=== PATIENT | male | born 1960 | race Caucasian/White ===

== ENCOUNTER 2016-10-13 11:30 | Inpatient (IN) | payer OTHER ==
[2016-10-13 11:37] VITALS: BMI 35.5
--- NOTE | 2016-10-13 11:55 | PDOC ---
History of Present Illness - General History Source: Patient Exam Limitations: No Limitations - History of Present Illness Initial Comments: 10/13/16 12:21 The patient is a 56 year old stateless speaking male with a significant past medical history of DM, HTN, esophageal varices, antral ulcers, and cirrhosis, who presents to the ED with multiple complaints. He has been acutely experiencing abdominal distention and abdominal pain since and on and off for several week. He complains of leg swelling, SOB, and dizziness on exertion. He also complains of a non-productive cough. Patient denies chest pain, palpitations. Patient denies fever, nausea, vomiting, diarrhea. Patient denies dysuria, frequency, hematuria. Patient is a poor historian and is unable to give a good history. <Jp Coulter - Last Filed: 10/13/16 12:23> <Shannen Neves - Last Filed: 10/13/16 14:26> - General Chief Complaint: Shortness of Breath Stated Complaint: SOB, PAIN Time Seen by Provider: 10/13/16 11:54 Past History <Jp Coulter - Last Filed: 10/13/16 12:23> - Past Medical History Anemia: No Asthma: No Cancer: No Cardiac Disorders: No CVA: No COPD: No CHF: No Dementia: No Diabetes: Yes (NO MEDS) GI Disorders: No Disorders: No HTN: Yes Hypercholesterolemia: No Liver Disease: No Seizures: No Thyroid Disease: No - Surgical History Abdominal Surgery: No Appendectomy: No Cardiac Surgery: No Cholecystectomy: No Lung Surgery: No Neurologic Surgery: No - Psycho/Social/Smoking Cessation Hx Anxiety: No Suicidal Ideation: No Smoking History: Never smoked Have you smoked in the past 12 months: No Information on smoking cessation initiated: No Hx Alcohol Use: No Drug/Substance Use Hx: No Substance Use Type: None <Shannen Neves - Last Filed: 10/13/16 14:26> - Past Medical History Allergies/Adverse Reactions: Allergies Allergy/AdvReac Type Severity Reaction Status Date / Time No Known Allergies Allergy Verified 10/13/16 11:32 Home Medications: Ambulatory Orders NK [No Known Home Medication] 10/13/16 Review of Systems - Review of Systems Able to Perform ROS?: Yes Comments:: 10/13/16 12:21 GENERAL/CONSTITUTIONAL: No fever or chills. + dizziness with exertion. HEAD, EYES, EARS, NOSE AND THROAT: No change in vision. No ear pain or discharge. No sore throat. CARDIOVASCULAR: + SOB. No chest pain. RESPIRATORY: + non-productive cough. No wheezing, or hemoptysis. GASTROINTESTINAL: No nausea, vomiting, diarrhea or constipation. GENITOURINARY: No dysuria, frequency, or change in urination. MUSCULOSKELETAL: No joint or muscle swelling or pain. No neck or back pain. SKIN: No rash NEUROLOGIC: No headache, vertigo, loss of consciousness, or change in strength/ sensation. ENDOCRINE: No increased thirst. No abnormal weight change. HEMATOLOGIC/LYMPHATIC: No anemia, easy bleeding, or history of blood clots. ALLERGIC/IMMUNOLOGIC: No hives or skin allergy. <Jp Coulter - Last Filed: 10/13/16 12:23> *Physical Exam - Vital Signs Last Vital Signs Temp Pulse Resp BP Pulse Ox 98.5 F 102 H 18 153/83 100 10/13/16 11:34 10/13/16 11:34 10/13/16 11:34 10/13/16 11:34 10/13/16 11:34 - Physical Exam Comments: 10/13/16 12:22 GENERAL: Awake, alert, and fully oriented, in no acute distress. Pale Appearing. HEAD: No signs of trauma EYES: PERRLA, EOMI, sclera anicteric, conjunctiva clear ENT: Auricles normal inspection, hearing grossly normal, nares patent, oropharynx clear without exudates. Moist mucosa NECK: Normal ROM, supple, no lymphadenopathy, JVD, or masses LUNGS: Crackles on the right side. Mildly tachypneic. No wheezing. HEART: Regular rate and rhythm, normal S1 and S2, no murmurs, rubs or gallops ABDOMEN: Soft, normoactive bowel sounds. Distended, mild superpubic tenderness. No guarding, no rebound. No masses EXTREMITIES: +1 pitting edema bilaterally. Normal range of motion. No clubbing or cyanosis. No cords, erythema, or tenderness NEUROLOGICAL: Cranial nerves II through XII grossly intact. Normal speech, normal gait SKIN: Warm, Dry, normal turgor, no rashes or lesions noted. 10/13/16 12:23 <Jp Coulter - Last Filed: 10/13/16 12:23> - Vital Signs Last Vital Signs Temp Pulse Resp BP Pulse Ox 98.5 F 102 H 18 153/83 100 10/13/16 11:34 10/13/16 11:34 10/13/16 11:34 10/13/16 11:34 10/13/16 11:34 <Shannen Neves - Last Filed: 10/13/16 14:26> ED Treatment Course - LABORATORY CBC & Chemistry Diagram: 10/13/16 12:35 10/13/16 12:35 <Shannen Neves - Last Filed: 10/13/16 14:26> Medical Decision Making - Medical Decision Making 10/13/16 14:22 pt presents to the ED complaining of a 4 day history of shortness of breath and generalized malaise, accompanied by abdominal distention. History of varices in the past, but denies current vomiting or melena. Hgb is 5. Ordered 2 units of PRBC. Hemodyamically stable. Will admit to hospitalist service. Case discussed with Dr. Sutherland. Guiac negative brown stool on rectal exam. <Shannen Neves - Last Filed: 10/13/16 14:26> *DC/Admit/Observation/Transfer - Attestations Scribe Attestion: 10/13/16 12:23 Documentation prepared by Jp Coulter, acting as medical device sales for Shannen Neves MD, . <Jp Coulter - Last Filed: 10/13/16 12:23> - Discharge Dispostion Admit: Yes Decision to Admit order Date/Time: 10/13/16 14:26 <Shannen Neves - Last Filed: 10/13/16 14:26> Diagnosis at time of Disposition: Anemia - Discharge Dispostion Condition at time of disposition: Fair
[2016-10-13 12:44] LABS: BASOPHIL 0.3 % (0-2.0); EOSINOPHIL 1.5 % (0-4.5); MCH 21.5 pg (25.7-33.7); MCHC 29.9 g/dl (32.0-35.9); MEAN CELL VOLUME 71.9 fl (80-96); MEAN PLT VOLUME 8.3 fl (7.5-11.1); NEUTROPHILS 72.1 % (42.8-82.8); PLATELET COUNT 69 K/MM3 (134-434); RDW 22.5 % (11.9-15.9); WHITE BLOOD COUNT 4.9 K/mm3 (4.0-10.0)
[2016-10-13 13:08] LABS: ALBUMIN 2.4 g/dl (3.4-5.0); ANION GAP 12 (8-16); BILIRUBIN,TOTAL 0.8 mg/dL (0.2-1.0); CALCIUM 7.7 mg/dL (8.5-10.1); CO2 22 mmol/L (21-32); COCKROFT - GAULT 164.3; CREATININE 0.7 mg/dL (0.7-1.3); GLUCOSE,RANDOM 179 mg/dL (74-106); SGOT/AST 25 U/L (15-37); SGPT/ALT 28 U/L (12-78)
[2016-10-13 13:11] LABS: ALK PHOS 228 U/L (45-117); TOT PROT 6.7 g/dl (6.4-8.2); TROPONIN I < 0.02 ng/ml (0.00-0.05)
[2016-10-13 13:30] LABS: URINE APPEARANCE CLEAR; URINE BILIRUBIN NEGATIVE (NEGATIVE); URINE BLOOD NEGATIVE (NEGATIVE); URINE COLOR AMBER; URINE GLUCOSE (UA) 1+ (NEGATIVE); URINE KETONE TRACE (NEGATIVE); URINE NITRITE NEGATIVE (NEGATIVE); URINE UROBILINOGEN 4.0 E.U/dl E.U./dl (0.2-1.0)
[2016-10-13 13:44] LABS: URINE LEUK ESTERASE TRACE (NEGATIVE); URINE PROTEIN 1+ (NEGATIVE)
[2016-10-13 13:47] LABS: URINE MUCUS MANY; URINE RBC 2 /hpf (0-3); URINE WBC 9 /hpf (3-5)
[2016-10-13 15:11] LABS: ANISOCYTOSIS 2+; HYPOCHROMIA 2+; MICROCYTOSIS 1+
--- NOTE | 2016-10-13 21:17 | HP ---
Admitting History and Physical - Primary Care Physician PCP: Anna Sutherland - Admission History of Present Illness: 56 year old citizen of [place] speaking male with a significant past medical history of DM , HTN, esophageal varices, antral ulcers, and cirrhosis, who presents to the ED with multiple complaints. He has been acutely experiencing abdominal distention and abdominal pain since and on and off for several week. He complains of leg swelling, SOB, and dizziness on exertion. He also complains of a non- productive cough. Patient denies chest pain, palpitations. Patient is a poor historian and is unable to give a good history. - Past Medical History Cardiovascular: Yes: HTN Gastrointestinal: Yes: Esophageal Varices, Peptic Ulcer Disease Hepatobiliary: Yes: Cirrhosis, Other (esophageal varices) Endocrine: Yes: Diabetes Mellitus - Past Surgical History Past Surgical History: Yes: None - Smoking History Smoking history: Never smoked Have you smoked in the past 12 months: No - Alcohol/Substance Use Hx Alcohol Use: No History of Substance Use: reports: None - Social History ADL: Independent Occupation: no work History of Recent Travel: No Home Medications - Allergies Allergies/Adverse Reactions: Allergies Allergy/AdvReac Type Severity Reaction Status Date / Time No Known Allergies Allergy Verified 10/13/16 11:32 - Home Medications Home Medications: Ambulatory Orders NK [No Known Home Medication] 10/13/16 Family Disease History - Family Disease History Family Disease History: Heart Disease: Father, Mother (in her 40s) Physical Examination Vital Signs: Vital Signs Temperature 98.4 F 10/13/16 14:26 Pulse Rate 75 10/13/16 16:23 Respiratory Rate 18 10/13/16 16:23 Blood Pressure 129/74 10/13/16 16:23 O2 Sat by Pulse Oximetry (%) 100 10/13/16 16:23 Constitutional: Yes: No Distress HENT: Yes: Atraumatic Neck: Yes: Supple Cardiovascular: Yes: Regular Rate and Rhythm Respiratory: Yes: CTA Bilaterally Gastrointestinal: Yes: Normal Bowel Sounds Extremities: Yes: WNL Edema: No Neurological: Yes: Alert, Oriented Problem List - Problems (1) Cirrhosis Code(s): K74.60 - UNSPECIFIED CIRRHOSIS OF LIVER (2) Diabetes mellitus Assessment/Plan: monitor blood sugar Code(s): E11.9 - TYPE 2 DIABETES MELLITUS WITHOUT COMPLICATIONS (3) Esophageal varices Code(s): I85.00 - ESOPHAGEAL VARICES WITHOUT BLEEDING (4) Gastric ulcer Assessment/Plan: gi consult Code(s): K25.9 - GASTRIC ULCER, UNSP ACUTE OR CHRONIC, W/O HEMOR OR PERF (5) HTN (hypertension) Code(s): I10 - ESSENTIAL (PRIMARY) HYPERTENSION (6) Anemia Assessment/Plan: 2 u prbc fu labs Code(s): D64.9 - ANEMIA, UNSPECIFIED Assessment/Plan Laboratory Results - last 24 hr 10/13/16 10/13/16 10/13/16 12:35 12:35 12:55 WBC 4.9 D RBC 2.31 L D Hgb 5.0 L* D Hct 16.6 L D MCV 71.9 L MCHC 29.9 L RDW 22.5 H D Plt Count 69 L MPV 8.3 Neutrophils % 72.1 Lymphocytes % 14.8 Monocytes % 11.3 H Eosinophils % 1.5 Basophils % 0.3 Hypochromic-Microcytic 2+ Anisocytosis 2+ Microcytosis 1+ Sodium 140 Potassium 3.4 L Chloride 106 Carbon Dioxide 22 Anion Gap 12 BUN 11 D Creatinine 0.7 Creat Clearance w eGFR > 60 Random Glucose 179 H D Calcium 7.7 L Total Bilirubin 0.8 D AST 25 D ALT 28 D Alkaline Phosphatase 228 H D Creatine Kinase 60 Troponin I < 0.02 B-Natriuretic Peptide 72.66 Total Protein 6.7 Albumin 2.4 L Lipase 161 Urine Color Lidia Urine Appearance Clear Urine pH 5.0 D Urine Protein 1+ H Urine Glucose (UA) 1+ H Urine Ketones Trace H Urine Blood Negative Urine Nitrite Negative Urine Bilirubin Negative Urine Urobilinogen 4.0 e.u/dl Ur Leukocyte Esterase Trace H Urine RBC 2 Urine WBC 9 Ur Epithelial Cells Rare Urine Mucus Many Blood Type Antibody Screen Crossmatch 10/13/16 10/13/16 13:27 13:27 WBC RBC Hgb Hct MCV MCHC RDW Plt Count MPV Neutrophils % Lymphocytes % Monocytes % Eosinophils % Basophils % Hypochromic-Microcytic Anisocytosis Microcytosis Sodium Potassium Chloride Carbon Dioxide Anion Gap BUN Creatinine Creat Clearance w eGFR Random Glucose Calcium Total Bilirubin AST ALT Alkaline Phosphatase Creatine Kinase Troponin I B-Natriuretic Peptide Total Protein Albumin Lipase Urine Color Urine Appearance Urine pH Urine Protein Urine Glucose (UA) Urine Ketones Urine Blood Urine Nitrite Urine Bilirubin Urine Urobilinogen Ur Leukocyte Esterase Urine RBC Urine WBC Ur Epithelial Cells Urine Mucus Blood Type O POSITIVE O POSITIVE Antibody Screen Negative Negative Crossmatch See Detail
[2016-10-14] MEDS ORDERED: ACETAMINOPHEN 325 MG TABLET (FP) PO PRN (06:24)
[2016-10-14 07:22] LABS: BASOPHIL 0.7 % (0-2.0); EOSINOPHIL 2.9 % (0-4.5); MCH 23.7 pg (25.7-33.7); MCHC 31.6 g/dl (32.0-35.9); MEAN CELL VOLUME 75.2 fl (80-96); MEAN PLT VOLUME 9.1 fl (7.5-11.1); NEUTROPHILS 67.5 % (42.8-82.8); RDW 23.9 % (11.9-15.9); WHITE BLOOD COUNT 4.2 K/mm3 (4.0-10.0)
[2016-10-14 07:28] LABS: PLATELET COUNT 63 K/MM3 (134-434)
[2016-10-14 07:59] LABS: ALBUMIN 2.3 g/dl (3.4-5.0); ALK PHOS 212 U/L (45-117); ANION GAP 9 (8-16); BILIRUBIN,TOTAL 1.3 mg/dL (0.2-1.0); CALCIUM 7.5 mg/dL (8.5-10.1); CO2 23 mmol/L (21-32); COCKROFT - GAULT 243.56; CREATININE 0.5 mg/dL (0.7-1.3); GLUCOSE,RANDOM 98 mg/dL (74-106); SGOT/AST 24 U/L (15-37); SGPT/ALT 27 U/L (12-78); TOT PROT 6.4 g/dl (6.4-8.2)
--- NOTE | 2016-10-14 17:03 | PN ---
Progress Note, Physician - Current Medication List Current Medications: Active Medications Acetaminophen (Tylenol -) 650 mg PO Q6H PRN PRN Reason: FEVER OR PAIN - Objective Vital Signs: Vital Signs Temperature 98.9 F 10/14/16 15:15 Pulse Rate 82 10/14/16 15:15 Respiratory Rate 20 10/14/16 15:15 Blood Pressure 116/67 10/14/16 15:15 O2 Sat by Pulse Oximetry (%) 95 10/13/16 21:18 Constitutional: Yes: No Distress HENT: Yes: Atraumatic Neck: Yes: Supple Cardiovascular: Yes: Regular Rate and Rhythm Respiratory: Yes: CTA Bilaterally Gastrointestinal: Yes: Normal Bowel Sounds, Ascites, Distention Extremities: Yes: WNL Edema: No Peripheral Pulses WNL: Yes Neurological: Yes: Alert, Oriented Labs: CBC, BMP 10/14/16 06:00 10/14/16 06:00 Problem List - Problems (1) Cirrhosis Code(s): K74.60 - UNSPECIFIED CIRRHOSIS OF LIVER (2) Diabetes mellitus Assessment/Plan: monitor blood sugar Code(s): E11.9 - TYPE 2 DIABETES MELLITUS WITHOUT COMPLICATIONS (3) Esophageal varices Code(s): I85.00 - ESOPHAGEAL VARICES WITHOUT BLEEDING (4) Gastric ulcer Assessment/Plan: gi consult Code(s): K25.9 - GASTRIC ULCER, UNSP ACUTE OR CHRONIC, W/O HEMOR OR PERF (5) HTN (hypertension) Code(s): I10 - ESSENTIAL (PRIMARY) HYPERTENSION (6) Anemia Assessment/Plan: 2 u prbc today gort 2 u yesterday fu labs Code(s): D64.9 - ANEMIA, UNSPECIFIED (7) Ascites Code(s): R18.8 - OTHER ASCITES
[2016-10-15 07:35] LABS: BASOPHIL 0.5 % (0-2.0); EOSINOPHIL 2.1 % (0-4.5); MCH 23.7 pg (25.7-33.7); MCHC 31.8 g/dl (32.0-35.9); MEAN CELL VOLUME 74.7 fl (80-96); MEAN PLT VOLUME 8.5 fl (7.5-11.1); NEUTROPHILS 70.2 % (42.8-82.8); PLATELET COUNT 60 K/MM3 (134-434); RDW 22.7 % (11.9-15.9); WHITE BLOOD COUNT 4.7 K/mm3 (4.0-10.0)
--- NOTE | 2016-10-15 08:51 | CON.GI ---
Consult Consult Specialty:: GI Referred by:: Dr Sutherland Reason for Consultation:: Anemia - History of Present Illness Chief Complaint: Fatigue and MOLINA/SOB with abdominal pain History of Present Illness: 56 M with h/o cirrhosis, metaqbolic syndrome, varices, with new severe abdominal distention, abdominal pain and LE edema. On admission, he was note to have a Hgb of 5.0. He also had a platelet count of 69 and WBC 4.6. - History Source History Provided By: Patient, Medical Record Limitations to Obtaining History: Language Barrier - Past Medical History Cardio/Vascular: Yes: HTN Gastrointestinal: Yes: Esophageal Varices, Peptic Ulcer Disease Hepatobiliary: Yes: Cirrhosis, Other (esophageal varices) Endocrine: Yes: Diabetes Mellitus - Past Surgical History Past Surgical History: Yes: None - Alcohol/Substance Use Hx Alcohol Use: No History of Substance Use: reports: None - Smoking History Smoking history: Never smoked Have you smoked in the past 12 months: No - Social History Usual Living Arrangement: Alone ADL: Independent Occupation: no work History of Recent Travel: No Home Medications - Allergies Allergies/Adverse Reactions: Allergies Allergy/AdvReac Type Severity Reaction Status Date / Time No Known Allergies Allergy Verified 10/13/16 11:32 - Home Medications Home Medications: Ambulatory Orders NK [No Known Home Medication] 10/13/16 Family Disease History - Family Disease History Family Disease History: Heart Disease: Father, Mother (in her 40s) Physical Exam-GI Vital Signs: Vital Signs Temperature 98.4 F 10/15/16 06:00 Pulse Rate 75 10/15/16 06:00 Respiratory Rate 20 10/15/16 06:00 Blood Pressure 132/82 10/15/16 06:00 O2 Sat by Pulse Oximetry (%) 95 10/15/16 02:00 Constitutional: Yes: Well Nourished HENT: Yes: Normocephalic Cardiovascular: Yes: Regular Rate and Rhythm Respiratory: Yes: CTA Bilaterally Gastrointestinal Inspection: Yes: Distention (MARKED) ...Auscultate: Yes: Hypoactive Bowel Sounds ...Palpate: Yes: Firm/Rigid ...Percussion: Yes: Tympanitic ...Rectal Exam: Yes: Guaiac Negative (G (-) brown stool in ER) Edema: Yes Edema: LUE: 3+, LLE: 3+ Labs: CBC, BMP 10/15/16 05:35 10/14/16 06:00 Hepatic Panel Total Bilirubin 1.3 mg/dL (0.2-1.0) H D 10/14/16 06:00 AST 24 U/L (15-37) 10/14/16 06:00 ALT 27 U/L (12-78) 10/14/16 06:00 Alkaline Phosphatase 212 U/L (45-117) H 10/14/16 06:00 Albumin 2.3 g/dl (3.4-5.0) L 10/14/16 06:00 Assessment/Plan 56 M with above history admitted with abdominal pain and marked distention. No imaging studies done yet. Abdomen is very tympanitic. He states he is moving his bowel normally Rec: Distention: CT with contrast stat Anemia: Actually pancytopenic and guaiac neg. 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 Transfuse carefully to Hgb no greater than 8, as portal HTN and over-transfusing can lead to variceal bleed NPO Careful IVF Check AFP-R/O HCC
[2016-10-15] MEDS: DEXTROSE 5%-0.45% SALINE 1,000 ML IV SCH ×2 (10:30→23:00)
[2016-10-15] MEDS: PANTOPRAZOLE SODIUM 40MG/100 ML IVPB SCH (10:31)
--- NOTE | 2016-10-15 18:36 | PN ---
Progress Note, Physician - Current Medication List Current Medications: Active Medications Acetaminophen (Tylenol -) 650 mg PO Q6H PRN PRN Reason: FEVER OR PAIN Dextrose/Sodium Chloride (D5-1/2ns -) 1,000 mls @ 75 mls/hr IV [facility] Last Admin: 10/15/16 10:30 Dose: 75 mls/hr Pantoprazole Sodium (Protonix 40mg Ivpb (Pre-Docked)) 100 mls @ 200 mls/hr IVPB DAILY [facility] Last Admin: 10/15/16 10:31 Dose: 200 mls/hr - Objective Vital Signs: Vital Signs Temperature 97.8 F 10/15/16 13:58 Pulse Rate 84 10/15/16 13:58 Respiratory Rate 20 10/15/16 13:58 Blood Pressure 144/85 10/15/16 13:58 O2 Sat by Pulse Oximetry (%) 96 10/15/16 18:00 Constitutional: Yes: No Distress HENT: Yes: Atraumatic Neck: Yes: Supple Cardiovascular: Yes: Regular Rate and Rhythm Respiratory: Yes: CTA Bilaterally Gastrointestinal: Yes: Normal Bowel Sounds Extremities: Yes: WNL Neurological: Yes: Alert, Oriented Labs: CBC, BMP 10/15/16 05:35 10/14/16 06:00 Problem List - Problems (1) Cirrhosis Assessment/Plan: GI EVAL DONE AND REVIEWED Code(s): K74.60 - UNSPECIFIED CIRRHOSIS OF LIVER (2) Diabetes mellitus Assessment/Plan: monitor blood sugarON INSULIN BGMS Code(s): E11.9 - TYPE 2 DIABETES MELLITUS WITHOUT COMPLICATIONS (3) Esophageal varices Assessment/Plan: monitor Code(s): I85.00 - ESOPHAGEAL VARICES WITHOUT BLEEDING (4) Gastric ulcer Assessment/Plan: gi consult ON PROTONIX Code(s): K25.9 - GASTRIC ULCER, UNSP ACUTE OR CHRONIC, W/O HEMOR OR PERF (5) HTN (hypertension) Assessment/Plan: ON MEDS STABLE Code(s): I10 - ESSENTIAL (PRIMARY) HYPERTENSION (6) Anemia Assessment/Plan: S/P 4 U PRBC Code(s): D64.9 - ANEMIA, UNSPECIFIED (7) Ascites Assessment/Plan: NEED PARACENTESIS GI ON BOARD Code(s): R18.8 - OTHER ASCITES Assessment/Plan seen by gi ct scan repoert seen will call oncology
[2016-10-15] MEDS ORDERED: MEROPENEM 1 GM in DEXTROSE 5%-WATER - 100 ML IVPB SCH (22:00)
--- NOTE | 2016-10-15 22:11 | CONSULT ---
Consult - text type - Consultation Consultation Note: The patient is a 56 year old [place] speaking male with a significant past medical history of DM, HTN, advanced cirrhosis, hepatocellular cancer, esophageal varices, antral ulcers, who presents with multiple complaints. He has been acutely experiencing abdominal distention and abdominal pain since and on and off for several week. He complains of leg swelling, SOB, and dizziness on exertion. He also complains of a non-productive cough. Patient denies chest pain, palpitations. Patient denies fever, nausea, vomiting, diarrhea. Patient denies dysuria, frequency, hematuria. Denies any overt bleeding Past History Diabetes: Yes (NO MEDS) HTN: Yes Cirrhosis varices hepatoceelular cancer--s/p TACE? renalc ell cancer on imaging?o - Psycho/Social/Smoking Cessation Hx Smoking History: Never smoked - Past Medical History Allergies/Adverse Reactions: Allergies Allergy/AdvReac Type Severity Reaction Status Date / Time No Known Allergies Allergy Verified 10/13/16 11:32 Home Medications: Ambulatory Orders NK [No Known Home Medication] 10/13/16 Home Medication List Medication Instructions Recorded Confirmed Type NK [No Known Home Medication] 10/13/16 10/13/16 History Active Medications Generic Name Dose Route Start Last Admin Trade Name Freq PRN Reason Stop Dose Admin Acetaminophen 650 mg 10/14/16 06:24 Tylenol - PO Q6H PRN FEVER OR PAIN Dextrose/Sodium Chloride 1,000 mls @ 75 mls/hr 10/15/16 09:30 10/15/16 10:30 D5-1/2ns - IV 75 mls/hr [facility] Administration Pantoprazole Sodium 100 mls @ 200 mls/hr 10/15/16 10:30 10/15/16 10:31 Protonix 40mg Ivpb (Pre-Docked) IVPB 200 mls/hr DAILY [facility] Administration *Physical Exam - Vital Signs Last Vital Signs Temp Pulse Resp BP Pulse Ox 97.9 F 75 20 109/64 96 10/15/16 18:00 10/15/16 18:00 10/15/16 18:00 10/15/16 18:00 10/15/16 18:00 Cor: RSR, No murmurs, No gallops Lungs: Clear to P&A Abd: Soft, Normal bowel sounds, No organomegaly Ext:No significant edema Skin: No rashes, Integument intact Abnormal Lab Results 10/13/16 10/15/16 13:27 05:35 RBC 3.08 L Hgb 7.3 L D Hct 23.0 L D MCV 74.7 L MCHC 31.8 L RDW 22.7 H Plt Count 60 L Monocytes % 11.3 H Crossmatch See Detail Active Medications Generic Name Dose Route Start Last Admin Trade Name Freq PRN Reason Stop Dose Admin Acetaminophen 650 mg 10/14/16 06:24 Tylenol - PO Q6H PRN FEVER OR PAIN Dextrose/Sodium Chloride 1,000 mls @ 75 mls/hr 10/15/16 09:30 10/15/16 10:30 D5-1/2ns - IV 75 mls/hr ASDIR [facility] Administration Pantoprazole Sodium 100 mls @ 200 mls/hr 10/15/16 10:30 10/15/16 10:31 Protonix 40mg Ivpb (Pre-Docked) IVPB 200 mls/hr DAILY [facility] Administration A/P 56 y/o patient with advanced cirrhosis, varices, ascites, comes in with worsening mary ma, ascites. h/o HCC , multifocal s/P TACE at [facility] Being followed by Dr. Pemberton also h/o renal cell ca on imaging Pancytopenia due to portal HTN Also with symptomatic anemia s/p PRBCS check coags/platelets --transfuse Plts/FFP prior to procedure ? paracentesis
[2016-10-16 07:49] LABS: INR 1.23 (0.82-1.09); PROTHROMBIN TIME (PATIENT) 13.6 SEC (9.98-11.88)
[2016-10-16 07:53] LABS: ACTIVATED PTT 35.6 SECONDS (26.9-34.4)
[2016-10-16] MEDS: PANTOPRAZOLE SODIUM 40MG/100 ML IVPB SCH (09:36)
[2016-10-16] MEDS: DEXTROSE 5%-0.45% SALINE 1,000 ML IV SCH ×2 (09:37→13:43)
--- NOTE | 2016-10-16 15:01 | PN ---
Progress Note, Physician - Current Medication List Current Medications: Active Medications Acetaminophen (Tylenol -) 650 mg PO Q6H PRN PRN Reason: FEVER OR PAIN Dextrose/Sodium Chloride (D5-1/2ns -) 1,000 mls @ 75 mls/hr IV ASDIR [facility] Last Admin: 10/16/16 13:43 Dose: 75 mls/hr Pantoprazole Sodium (Protonix 40mg Ivpb (Pre-Docked)) 100 mls @ 200 mls/hr IVPB DAILY [facility] Last Admin: 10/16/16 09:36 Dose: 200 mls/hr - Objective Vital Signs: Vital Signs Temperature 97.9 F 10/16/16 13:44 Pulse Rate 76 10/16/16 13:44 Respiratory Rate 20 10/16/16 13:44 Blood Pressure 133/73 10/16/16 13:44 O2 Sat by Pulse Oximetry (%) 95 10/16/16 06:00 Constitutional: Yes: No Distress HENT: Yes: Atraumatic Neck: Yes: Supple Cardiovascular: Yes: Regular Rate and Rhythm Respiratory: Yes: CTA Bilaterally Gastrointestinal: Yes: Normal Bowel Sounds Extremities: Yes: WNL Neurological: Yes: Alert, Oriented Labs: INR, PTT INR 1.23 (0.82-1.09) H 10/16/16 06:00 Fibrinogen 244.0 mg/dL (238-498) D 10/16/16 06:00 Problem List - Problems (1) Cirrhosis Assessment/Plan: GI EVAL DONE AND REVIEWED Code(s): K74.60 - UNSPECIFIED CIRRHOSIS OF LIVER (2) Diabetes mellitus Assessment/Plan: monitor blood sugarON INSULIN BGMS Code(s): E11.9 - TYPE 2 DIABETES MELLITUS WITHOUT COMPLICATIONS (3) Esophageal varices Assessment/Plan: monitor Code(s): I85.00 - ESOPHAGEAL VARICES WITHOUT BLEEDING (4) Gastric ulcer Assessment/Plan: gi consult ON PROTONIX Code(s): K25.9 - GASTRIC ULCER, UNSP ACUTE OR CHRONIC, W/O HEMOR OR PERF (5) HTN (hypertension) Assessment/Plan: ON MEDS STABLE Code(s): I10 - ESSENTIAL (PRIMARY) HYPERTENSION (6) Anemia Assessment/Plan: S/P 4 U PRBC Code(s): D64.9 - ANEMIA, UNSPECIFIED (7) Ascites Code(s): R18.8 - OTHER ASCITES Assessment/Plan seen by gi ct scan report seen will call oncology
[2016-10-16 20:43] LABS: BASOPHIL 0.5 % (0-2.0); EOSINOPHIL 2.9 % (0-4.5); MCHC 30.5 g/dl (32.0-35.9); MEAN CELL VOLUME 75.3 fl (80-96); MEAN PLT VOLUME 8.7 fl (7.5-11.1); NEUTROPHILS 70.6 % (42.8-82.8); RDW 23.8 % (11.9-15.9); WHITE BLOOD COUNT 4.4 K/mm3 (4.0-10.0)
[2016-10-16] MEDS: PHYTONADIONE 10 MG/1 ML AMP SQ SCH (21:27)
[2016-10-16 22:15] LABS: PLATELET COUNT 68 K/MM3 (134-434); PLATELET ESTIMATE DECREASED (NORMAL)
[2016-10-16 22:16] LABS: POLYCHROMASIA OCC
--- NOTE | 2016-10-16 22:17 | PN ---
Progress Note (short form) - Note Progress Note: Patient seen and examined vitals/labs/meds reviewed Denies any complaints Last Vital Signs Temp Pulse Resp BP Pulse Ox 98.7 F 79 20 138/81 97 10/17/16 05:00 10/17/16 05:00 10/17/16 05:00 10/17/16 05:00 10/17/16 00:08 Cor: RSR, No murmurs, No gallops Lungs: Clear to P&A Abd: Soft, Normal bowel sounds, No organomegaly Ext:No significant edema Abnormal Lab Results 10/13/16 10/16/16 10/17/16 13:27 20:30 07:40 RBC 3.37 L 3.34 L Hgb 7.7 L 7.8 L Hct 25.3 L 25.1 L MCV 75.3 L 75.2 L MCHC 30.5 L 31.3 L RDW 23.8 H 23.6 H Plt Count 68 L 82 L D Monocytes % 10.3 H Crossmatch See Detail A/P 56 y/o patient with advanced cirrhosis, varices, ascites, comes in with worsening mary ma, ascites. h/o HCC , multifocal s/P TACE at [facility] Being followed by Dr. Pemberton also h/o renal cell ca on imaging Pancytopenia due to portal HTN Also with symptomatic anemia s/p PRBCS check coags/platelets --transfuse Plts/FFP prior to procedure may need to transfuse PRBCs to a goal of 8 trial of vit. k for paracentesis
[2016-10-17] MEDS: DEXTROSE 5%-0.45% SALINE 1,000 ML IV SCH (04:00)
[2016-10-17 07:51] LABS: MCH 23.5 pg (25.7-33.7); MCHC 31.3 g/dl (32.0-35.9); MEAN CELL VOLUME 75.2 fl (80-96); MEAN PLT VOLUME 8.5 fl (7.5-11.1); PLATELET COUNT 82 K/MM3 (134-434); RDW 23.6 % (11.9-15.9); WHITE BLOOD COUNT 4.6 K/mm3 (4.0-10.0)
[2016-10-17] MEDS ORDERED: PHYTONADIONE 10 MG/1 ML AMP SQ SCH (10:00)
[2016-10-17] MEDS: PANTOPRAZOLE SODIUM 40MG/100 ML IVPB SCH (12:54)
[2016-10-17] MEDS: PHYTONADIONE 10 MG/1 ML AMP SQ SCH (12:55)
--- NOTE | 2016-10-17 13:55 | PN ---
Progress Note (short form) - Note Progress Note: Patient seen and examined S/P paracentesis Feels more comfortable Complains of pain at IV site - has erythema and tenderness Last Vital Signs Temp Pulse Resp BP Pulse Ox 98.7 F 79 20 138/81 97 10/17/16 05:00 10/17/16 05:00 10/17/16 05:00 10/17/16 05:00 10/17/16 00:08 HEENT: right eye - scarred Oropharynx: No thrush, No mucositis Cor: RSR, systolic murmur Lungs: rhonchi at bases Abd: Soft, ascites RLL scarring and small punctate lesion Ext:LE edema Skin: Integument intact,scarring Right lower extremity CBC, BMP 10/17/16 07:40 10/14/16 06:00 Current Medications Generic Name Dose Route Start Last Admin Trade Name Freq PRN Reason Stop Dose Admin Acetaminophen 650 mg 10/14/16 06:24 Tylenol - PO Q6H PRN FEVER OR PAIN Dextrose/Sodium Chloride 1,000 mls @ 75 mls/hr 10/15/16 09:30 10/17/16 04:00 D5-1/2ns - IV 75 mls/hr [facility]IR [facility] Administration Pantoprazole Sodium 100 mls @ 200 mls/hr 10/15/16 10:30 10/17/16 12:54 Protonix 40mg Ivpb (Pre-Docked) IVPB 200 mls/hr DAILY [facility] Administration Phytonadione 5 mg 10/16/16 20:29 10/17/16 12:55 Aqua Mephyton Injection - SQ 10/18/16 10:01 5 mg DAILY [facility] Administration Impression: HCC Cirrhosis-- S/P paracentesis RCC Pancytopenia secondary to portal hypertension Plan: Has been followed at [facility] in past. Would return to primary care and GI when discharged.
--- NOTE | 2016-10-17 14:00 | PN ---
Progress Note, Physician - Current Medication List Current Medications: Active Medications Acetaminophen (Tylenol -) 650 mg PO Q6H PRN PRN Reason: FEVER OR PAIN Dextrose/Sodium Chloride (D5-1/2ns -) 1,000 mls @ 75 mls/hr IV ASDIR REPLACED BY [facility] Last Admin: 10/17/16 04:00 Dose: 75 mls/hr Pantoprazole Sodium (Protonix 40mg Ivpb (Pre-Docked)) 100 mls @ 200 mls/hr IVPB DAILY REPLACED BY [facility] Last Admin: 10/17/16 12:54 Dose: 200 mls/hr Phytonadione (Aqua Mephyton Injection -) 5 mg SQ DAILY REPLACED BY [facility] Stop: 10/18/16 10:01 Last Admin: 10/17/16 12:55 Dose: 5 mg - Objective Vital Signs: Vital Signs Temperature 98.7 F 10/17/16 05:00 Pulse Rate 79 10/17/16 05:00 Respiratory Rate 20 10/17/16 05:00 Blood Pressure 138/81 10/17/16 05:00 O2 Sat by Pulse Oximetry (%) 97 10/17/16 00:08 Constitutional: Yes: No Distress HENT: Yes: Atraumatic Neck: Yes: Supple Cardiovascular: Yes: Regular Rate and Rhythm Respiratory: Yes: CTA Bilaterally Gastrointestinal: Yes: Normal Bowel Sounds, Ascites, Distention Extremities: Yes: WNL Edema: No Neurological: Yes: Alert, Oriented Labs: CBC, BMP 10/17/16 07:40 INR, PTT INR 1.23 (0.82-1.09) H 10/16/16 06:00 Fibrinogen 244.0 mg/dL (238-498) D 10/16/16 06:00 Problem List - Problems (1) Cirrhosis Assessment/Plan: GI EVAL DONE AND REVIEWED Code(s): K74.60 - UNSPECIFIED CIRRHOSIS OF LIVER (2) Diabetes mellitus Assessment/Plan: monitor blood sugarON INSULIN BGMS Code(s): E11.9 - TYPE 2 DIABETES MELLITUS WITHOUT COMPLICATIONS (3) Esophageal varices Assessment/Plan: monitor Code(s): I85.00 - ESOPHAGEAL VARICES WITHOUT BLEEDING (4) Gastric ulcer Assessment/Plan: gi consult ON PROTONIX Code(s): K25.9 - GASTRIC ULCER, UNSP ACUTE OR CHRONIC, W/O HEMOR OR PERF (5) HTN (hypertension) Assessment/Plan: ON MEDS STABLE Code(s): I10 - ESSENTIAL (PRIMARY) HYPERTENSION (6) Anemia Assessment/Plan: S/P 4 U PRBC Code(s): D64.9 - ANEMIA, UNSPECIFIED (7) Ascites Assessment/Plan: S/P PARACENTESIS GI ON BOARD Code(s): R18.8 - OTHER ASCITES Assessment/Plan s/p paracentesis will feed pt dc home if stable and tolerating food d/w oncology dr gutierrez pt has been followed at [facility] in the past, should goback to [facility]
[2016-10-17 15:06] LABS: PERITONEAL FLUID LYMPHOCYTE 30 %; PERITONEAL FLUID MACROPHAGE 57 %; PERITONEAL FLUID MESOTHELIAL 4 %; PERITONEAL FLUID NEUTROPHIL 9 %
--- NOTE | 2016-10-17 16:03 | DS ---
Physical Examination Vital Signs: Vital Signs Temperature 98.8 F 10/17/16 14:19 Pulse Rate 81 10/17/16 14:19 Respiratory Rate 20 10/17/16 14:19 Blood Pressure 134/81 10/17/16 14:19 O2 Sat by Pulse Oximetry (%) 97 10/17/16 10:00 Labs: CBC, BMP 10/17/16 07:40 Discharge Summary Reason For Visit: CIRRHOSIS, ASCITES Current Active Problems Anemia (Acute) Ascites (Acute) - Home Medications Comprehensive Discharge Medication List: Ambulatory Orders NK [No Known Home Medication] 10/13/16 dc home follow up at [facility], gi and pmd
[2016-10-17 18:16] VITALS: BP 121/75; PULSE 95; TEMP 98.1
--- NOTE | 2016-10-19 15:44 | EKG ---
Test Reason : Blood Pressure : / mmHG Vent. Rate : 094 BPM Atrial Rate : 094 BPM P-R Int : 154 ms QRS Dur : 096 ms QT Int : 378 ms P-R-T Axes : 026 017 008 degrees QTc Int : 472 ms NORMAL SINUS RHYTHM NORMAL ECG WHEN COMPARED WITH ECG OF 07-MAY-2015 12:30, T WAVE AMPLITUDE HAS DECREASED IN ANTERIOR LEADS CLINICAL CORRELATION IS RECOMMENDED Confirmed by NELIDA LANDRY, ALYSSA ([id number]) on 10/19/2016 3:43:41 PM Referred By: Confirmed By:ALYSSA KRAUSE MD
--- NOTE | 2016-10-20 13:07 | PATH ---
Cytology Non-Gynecological Report Patient Name: BRENDA VELASCO [facility]. Rec. #: [id number] /Age/Gender: 1960 (Age: 56) / M Account: [id number] Location: [facility] MED/SURG Taken: 10/17/2016 Received: 10/17/2016 Reported: 10/20/2016 Physicians: Leo Graham M.D. Specimen(s) Received A: ABDOMINAL FLUID IN 50% ALCOHOL B: ABDOMINAL FLUID FRESH Clinical History Ascites Final Diagnosis A,B. ABDOMINAL FLUID, PARACENTESIS: SATISFACTORY FOR EVALUATION. NO MALIGNANT CELLS IDENTIFIED. REACTIVE MESOTHELIAL CELLS, HISTIOCYTES AND LYMPHOCYTES. Electronically Signed Glenn Alvarenga M.D. Gross Description A. Received is a 50 cc of yellow fluid in 50% alcohol. One cytofunnel slide and one cell block are made. B. Received is 7000 cc of yellow fluid fresh. One cytofunnel slide and one cell block are made.
== END 2016-10-17 17:40 | disposition home or self-care (01) | DRG 264 ==
LOC: JER 11:30 → JERBED 14:26 → UNDOADMOB 14:26 → INTOOBSV 14:26 → JERBED 16:35 → J7W 16:35 → JERBED 21:17 → J7W 21:17 → OBSVTOIN 10-15 19:54
PROVIDERS: ADMIT Internal Medicine; ATTEND Internal Medicine
PROC: 30233R1 Transfusion of Nonautologous Platelets into Peripheral Vein, Percutaneous Approach (ICD-10-PCS; 2016-10-13)
PROC: 0W9G3ZX Drainage of Peritoneal Cavity, Percutaneous Approach, Diagnostic (ICD-10-PCS; principal; 2016-10-17)
PROC: 30233N1 Transfusion of Nonautologous Red Blood Cells into Peripheral Vein, Percutaneous Approach (ICD-10-PCS; 2016-10-17)
DX: K74.60 Unspecified cirrhosis of liver (principal); R18.8 Other ascites; D64.9 Anemia, unspecified; I10 Essential (primary) hypertension; I85.00 Esophageal varices without bleeding; E11.9 Type 2 diabetes mellitus without complications; K25.9 Gastric ulcer, unspecified as acute or chronic, without hemorrhage or perforation; D61.818 Other pancytopenia; K76.6 Portal hypertension
CPT/HCPCS: 36415; 36430; 36511; 71010-TC; 74177-TC; 76942-TC; 80053; 81003; 81015; 82042; 82105; 82150; 82378; 82550; 82945; 83615; 83690; 83880; 84157; 84478; 84484; 85025; 85027; 85384; 85610; 85730; 86301; 86850; 86900; 86901; 86922; 87070; 87075; 87102; 87116; 87205; 87206; 87210; 88108; 88305-TC; 89051; 93005; 93010; 99284-25; G0378; P9034; P9038; P9058; Q9967

== ENCOUNTER 2016-10-28 03:15 | Inpatient (IN) | payer OTHER ==
--- NOTE | 2016-10-28 04:21 | PDOC ---
History of Present Illness - General History Source: Patient Exam Limitations: No Limitations - History of Present Illness Initial Comments: 10/28/16 04:50 The patient is a 56 year old male with significant past medical history of diabetes, hypertension, esophageal varices, antral ulcers, advanced cirrhosis, and ascites who presents to the ED for sudden onset of increasing abdominal pain few hours prior to arrival. Patient reports he had very little to eat last night around 9pm when he suddenly developed abdominal pain. He describes the pain as sharp in nature in the epigastric region, nonradiating, and 8/10 with nausea, but no vomiting or diarrhea. The patient denies fever, chills, cough, SOB, chest pain, and palpitations. Patient was recently seen in the ER on 10/13 for SOB, generalized malaise, and abdominal distension where he was found to have a Hgb of 5. Patient was admitted for anemia. On 10/17 patient had a needle guided paracentesis done by IR , which removed 7L of fluid from the abdomen. Patient was treated and discharged on 10/17. He returns today for similar pain that he had when he was last admitted on 10/13. Allergies: NKDA Social History: No alcohol, tobacco, or drug use reported. Past Surgical History: cleft lip surgery PCP and GI are at [facility] <Magy Ellis - Last Filed: 10/28/16 04:49> - General History Source: Patient <Robinson Espinoza - Last Filed: 10/28/16 19:27> - General Stated Complaint: ABD PAIN Time Seen by Provider: 10/28/16 04:17 Past History <Magy Ellis - Last Filed: 10/28/16 04:49> - Past Medical History Anemia: No Asthma: No Cancer: No Cardiac Disorders: No CVA: No COPD: No CHF: No Dementia: No Diabetes: Yes (NO MEDS) GI Disorders: No Disorders: No HTN: Yes Hypercholesterolemia: No Liver Disease: No Seizures: No Thyroid Disease: No - Surgical History Abdominal Surgery: No Appendectomy: No Cardiac Surgery: No Cholecystectomy: No Lung Surgery: No Neurologic Surgery: No - Psycho/Social/Smoking Cessation Hx Anxiety: No Suicidal Ideation: No Smoking History: Never smoked Have you smoked in the past 12 months: No Hx Alcohol Use: No Drug/Substance Use Hx: No Substance Use Type: None <Robinson Espinoza - Last Filed: 10/28/16 19:27> - Past Medical History Allergies/Adverse Reactions: Allergies Allergy/AdvReac Type Severity Reaction Status Date / Time No Known Allergies Allergy Verified 10/28/16 04:30 Home Medications: Ambulatory Orders Ibuprofen [Advil -] 200 mg PO PRN PRN 10/28/16 Review of Systems - Review of Systems Able to Perform ROS?: Yes Comments:: 10/28/16 04:50 CONSTITUTIONAL: Absent: fever, no chills, no fatigue EYES: Absent: visual changes ENT: Absent: ear pain, no sore throat CARDIOVASCULAR: Absent: chest pain, no palpitations RESPIRATORY: Absent: cough, no SOB GI: +abdominal pain, nausea Absent: no vomiting, no constipation, no diarrhea GENITOURINARY: Absent: dysuria, no frequency, no hematuria MUSCULOSKELETAL: Absent: back pain, no arthralgia, no myalgia SKIN: Absent: rash NEURO: Absent: headache <Magy Ellis - Last Filed: 10/28/16 04:49> *Physical Exam - Vital Signs Last Vital Signs Temp Pulse Resp BP Pulse Ox 98.1 F 88 18 157/93 98 10/28/16 04:19 10/28/16 04:19 10/28/16 04:19 10/28/16 04:19 10/28/16 04:19 - Physical Exam Comments: 10/28/16 04:50 GENERAL: Well-appearing, well-nourished. No apparent distress. HEENT: Normocephalic, atraumatic. PERRL, EOM intact. CARDIOVASCULAR: Regular rate and rhythm. 4/6 holosystolic murmur over the left sternal border. PULMONARY: Decreased breath sounds bilaterally. Mild conversational dyspnea. No retractions. No wheezing, rales, or rhonchi. ABDOMEN: Soft, moderate distended abdomen, diffusely tender. No rebound or guarding. EXTREMITIES: Normal ROM in all four extremities. No gross deformities. SKIN: Warm, dry. No rash NEUROLOGICAL: No focal neurological deficits. <Magy Ellis - Last Filed: 10/28/16 04:49> Heart Score/ECG Review - ECG Impressions Comment:: 10/28/16 04:54 NSR @87bpm Possible anterior infarct, age undetermined Abnormal ECG <Magy Ellis - Last Filed: 10/28/16 04:49> ED Treatment Course - LABORATORY CBC & Chemistry Diagram: 10/28/16 04:59 10/28/16 04:59 <Robinson Espinoza - Last Filed: 10/28/16 19:27> Medical Decision Making - Medical Decision Making 10/28/16 19:26 Dr. Espinoza: The scribe's documentation has been prepared under my direction and personally reviewed by me in its entirery. I confirm that the note above accurately reflects all work, treatment, procedures, and medical decision making performed by me. <Robinson Espinoza - Last Filed: 10/28/16 19:27> *DC/Admit/Observation/Transfer - Attestations Scribe Attestion: 10/28/16 04:54 Documentation prepared by Magy Ellis, acting as medical technologist microbiology for Robinson Espinoza MD/DO. <Magy Ellis - Last Filed: 10/28/16 04:49> - Discharge Dispostion Admit: Yes <Robinson Espinoza - Last Filed: 10/28/16 19:27> Diagnosis at time of Disposition: Ascites Cirrhosis Qualifiers: Ascites presence: with ascites
[2016-10-28 05:09] LABS: BASOPHIL 0.2 % (0-2.0); EOSINOPHIL 0.4 % (0-4.5); MCH 22.7 pg (25.7-33.7); MCHC 30.8 g/dl (32.0-35.9); MEAN CELL VOLUME 73.9 fl (80-96); MEAN PLT VOLUME 8.9 fl (7.5-11.1); NEUTROPHILS 83.8 % (42.8-82.8); PLATELET COUNT 104 K/MM3 (134-434); RDW 24.1 % (11.9-15.9); WHITE BLOOD COUNT 5.8 K/mm3 (4.0-10.0)
[2016-10-28 05:32] LABS: ALBUMIN 2.6 g/dl (3.4-5.0); AMYLASE 33 U/L (25-115); ANION GAP 7 (8-16); BILIRUBIN,TOTAL 1.1 mg/dL (0.2-1.0); CALCIUM 7.6 mg/dL (8.5-10.1); CO2 25 mmol/L (21-32); CREATININE 0.6 mg/dL (0.7-1.3); GLUCOSE,RANDOM 155 mg/dL (74-106); MAGNESIUM 1.8 mg/dL (1.8-2.4); SGOT/AST 29 U/L (15-37); SGPT/ALT 26 U/L (12-78); TOT PROT 7.4 g/dl (6.4-8.2)
[2016-10-28 05:33] LABS: ALK PHOS 242 U/L (45-117); TROPONIN I < 0.02 ng/ml (0.00-0.05)
[2016-10-28 05:44] LABS: INR 1.29 (0.82-1.09); PROTHROMBIN TIME (PATIENT) 14.3 SEC (9.98-11.88)
[2016-10-28 06:24] LABS: URINE APPEARANCE CLEAR; URINE BILIRUBIN NEGATIVE (NEGATIVE); URINE COLOR AMBER; URINE GLUCOSE (UA) 1+ (NEGATIVE); URINE KETONE 1+ (NEGATIVE); URINE LEUK ESTERASE NEGATIVE (NEGATIVE); URINE NITRITE NEGATIVE (NEGATIVE); URINE UROBILINOGEN 2.0 E.U/dl E.U./dl (0.2-1.0)
[2016-10-28 06:33] LABS: URINE BLOOD 1+ (NEGATIVE); URINE PROTEIN 1+ (NEGATIVE)
[2016-10-28 06:42] LABS: URINE MUCUS MANY; URINE RBC 3 /hpf (0-3); URINE WBC 3 /hpf (3-5)
--- NOTE | 2016-10-28 09:34 | HP ---
CHIEF COMPLAINT: abd pain PCP: From [facility] GI and PMD HISTORY OF PRESENT ILLNESS: The patient is a 56 year old male with significant past medical history of diabetes, hypertension, esophageal varices, antral ulcers, advanced cirrhosis, and ascites who presents to the ED for sudden onset of increasing abdominal pain few hours prior to arrival. Patient reports he had very little to eat last night around 9pm when he suddenly developed abdominal pain. He describes the pain as sharp in nature in the epigastric region, nonradiating, and 8/10 with nausea, but no vomiting or diarrhea. The patient denies fever, chills, cough, SOB, chest pain, and palpitations. Patient was recently seen in the ER on 10/13 for SOB, generalized malaise, and abdominal distension where he was found to have a Hgb of 5. Patient was admitted for anemia. On 10/17 patient had a needle guided paracentesis done by IR , which removed 7L of fluid from the abdomen. Patient was treated and discharged on 10/17. He returns today for similar pain that he had when he was last admitted on 10/13. Allergies: NKDA Social History: No alcohol, tobacco, or drug use reported. Past Surgical History: cleft lip surgery PCP and GI are at [facility] Recent Travel: none Family History: Allergies No Known Allergies Allergy (Verified 10/28/16 04:30) HOME MEDICATIONS: Home Medications Medication Instructions Recorded Ibuprofen [Advil -] 200 mg PO PRN PRN 10/28/16 REVIEW OF SYSTEMS CONSTITUTIONAL: Absent: fever, chills, diaphoresis, generalized weakness, malaise, loss of appetite, (+)weight change HEENT: Absent: rhinorrhea, nasal congestion, throat pain, throat swelling, difficulty swallowing, mouth swelling, ear pain, eye pain, visual changes CARDIOVASCULAR: Absent: chest pain, syncope, palpitations, irregular heart rate, lightheadedness , peripheral edema RESPIRATORY: Absent: cough, shortness of breath, dyspnea with exertion, orthopnea, wheezing, stridor, hemoptysis GASTROINTESTINAL: Absent: (+)abdominal pain, (+)abdominal distension, (+)nausea, vomiting, diarrhea, constipation, melena, hematochezia GENITOURINARY: Absent: dysuria, frequency, urgency, hesitancy, hematuria, flank pain, genital pain MUSCULOSKELETAL: Absent: myalgia, arthralgia, joint swelling, back pain, neck pain SKIN: Absent: rash, itching, pallor HEMATOLOGIC/IMMUNOLOGIC: Absent: easy bleeding, easy bruising, lymphadenopathy, frequent infections ENDOCRINE: Absent: unexplained weight gain, unexplained weight loss, heat intolerance, cold intolerance NEUROLOGIC: Absent: headache, focal weakness or paresthesias, dizziness, unsteady gait, seizure, mental status changes, bladder or bowel incontinence PSYCHIATRIC: Absent: anxiety, depression, suicidal or homicidal ideation, hallucinations. PHYSICAL EXAMINATION Vital Signs - 24 hr 10/28/16 10/28/16 07:00 08:49 Temperature 98.3 F 97.8 F Pulse Rate [ 78 64 Left] Respiratory 17 18 Rate Blood Pressure 137/92 127/83 [Left Arm] O2 Sat by Pulse 96 98 Oximetry (%) GENERAL: Awake, alert, and fully oriented, in no acute distress. HEAD: Normal with no signs of trauma. EYES: Pupils equal, round and reactive to light, extraocular movements intact, sclera anicteric, conjunctiva clear. No lid lag. EARS, NOSE, THROAT: Ears normal, nares patent, oropharynx clear without exudates. Moist mucous membranes. NECK: Normal range of motion, supple without lymphadenopathy, JVD, or masses. LUNGS: Breath sounds equal, clear to auscultation bilaterally. No wheezes, and no crackles. No accessory muscle use. HEART: Regular rate and rhythm, normal S1 and S2 without murmur, rub or gallop. ABDOMEN:(+) with ascites distended, normoactive bowel sounds, no guarding, no rebound, no masses. + hepatomegaly ? splenomegaly. MUSCULOSKELETAL: Normal range of motion at all joints. No bony deformities or tenderness. No CVA tenderness. UPPER EXTREMITIES: 2+ pulses, warm, well-perfused. No cyanosis. No clubbing. No peripheral edema. LOWER EXTREMITIES: 2+ pulses, warm, well-perfused. No calf tenderness. No peripheral edema. SKIN: Warm, dry, normal turgor, no rashes or lesions noted, normal capillary refill. Laboratory Results - last 24 hr 10/28/16 06:15 Urine Color Lidia Urine Appearance Clear Urine pH 5.0 Urine Protein 1+ H Urine Glucose (UA) 1+ H Urine Ketones 1+ H Urine Blood 1+ H Urine Nitrite Negative Urine Bilirubin Negative Urine Urobilinogen 2.0 e.u/dl Ur Leukocyte Esterase Negative Urine RBC 3 Urine WBC 3 Ur Epithelial Cells Rare Urine Mucus Many ASSESSMENT/PLAN: This 56 year old male with c/o abd pain and distention with ascites 1. Ascites with abdominal pain and pressure -strict I and O -avoid IVF -GI consult -Hemotology/onc consult -trend weight daily -had CT 3 weeks ago with ? mass noted but pt was scheduled to follow up with her GI/PMD in [facility] but did not follow up 2. GI/DVT ppx 3. Admission for cirrhosis/ascites 4. Diabetes -monitor finger sticks 5. HTN -trend blood pressure Problem List - Problem (1) Ascites Code(s): R18.8 - OTHER ASCITES (2) Cirrhosis Code(s): K74.60 - UNSPECIFIED CIRRHOSIS OF LIVER Qualifiers: Ascites presence: with ascites (3) Diabetes mellitus Code(s): E11.9 - TYPE 2 DIABETES MELLITUS WITHOUT COMPLICATIONS Qualifiers: Diabetes mellitus type: type 2 Diabetes mellitus complication status: without complication Visit type - Emergency Visit Emergency Visit: Yes ED Registration Date: 10/28/16 Care time: The patient presented to the Emergency Department on the above date and was hospitalized for further evaluation of their emergent condition. - New Patient This patient is new to me today: Yes Date on this admission: 10/28/16 - Critical Care Critical Care patient: No
[2016-10-28] MEDS ORDERED: PANTOPRAZOLE SODIUM 100 ML IVPB ONE (10:51)
[2016-10-28] MEDS: PANTOPRAZOLE SODIUM 100 ML IVPB SCH (10:57)
[2016-10-28 15:01] VITALS: BMI 34.9
--- NOTE | 2016-10-28 15:25 | CONSULT ---
Consult Consult Specialty:: Hematology-Oncology Reason for Consultation:: Pancytopenia;. Hepatocellular carcinoma. Cirrhosis. Ascites - History of Present Illness Chief Complaint: Abdominal pains. History of Present Illness: Followed at [facility]. History of cirrhosis, ascites, varices, Hepatocellular carcinoma and possible renal cell ca on imaging. Recently presented with Hb-5.0 and transfused to Hb-7.8 . Discharged with Hct- 25% and Hb-7.8 on 10/17. Had paracentesis with removal of 7 liters of fluid during that admission. Re-presents -10 days later with stable Hct and significant ascites. - History Source History Provided By: Patient, Medical Record Limitations to Obtaining History: Language Barrier - Past Medical History Cardio/Vascular: Yes: HTN Gastrointestinal: Yes: Esophageal Varices, Peptic Ulcer Disease Hepatobiliary: Yes: Cirrhosis, Other (esophageal varices, hepatocellular carcinoma) Renal/: Yes: Other (? 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 History of Recent Travel: No Home Medications - Allergies Allergies/Adverse Reactions: Allergies Allergy/AdvReac Type Severity Reaction Status Date / Time No Known Allergies Allergy Verified 10/28/16 04:30 - Home Medications Home Medications: Ambulatory Orders Ibuprofen [Advil -] 200 mg PO PRN PRN 10/28/16 Family Disease History - Family Disease History Family Disease History: Heart Disease: Father, Mother (in her 40s) Review of Systems - Review of Systems Constitutional: denies: Fever, Night Sweats Eyes: reports: Other (decreasse vision right eye) Neck: reports: No Symptoms Cardiovascular: reports: Shortness of Breath. denies: Chest Pain, Palpitations Respiratory: reports: SOB, SOB on Exertion Gastrointestinal: reports: Abdominal Pain, Other (asc ites). denies: Vomiting Blood Genitourinary: denies: Dysuria, Flank Pain, Hematuria Musculoskeletal: reports: No Symptoms Integumentary: reports: No Symptoms Neurological: reports: No Symptoms Endocrine: reports: No Symptoms Hematology/Lymphatic: reports: Easily Bruised. denies: Swollen Glands Psychiatric: reports: No Symptoms Physical Exam Vital Signs: Vital Signs Temperature 97.4 F L 10/28/16 14:05 Pulse Rate 78 10/28/16 14:05 Respiratory Rate 20 10/28/16 14:05 Blood Pressure 145/82 10/28/16 14:05 O2 Sat by Pulse Oximetry (%) 99 10/28/16 14:05 Constitutional: Yes: Mild Distress Eyes: Yes: Other (decrease vision left eye) HENT: Yes: Normocephalic. No: Tonsillar Exudate Neck: Yes: Supple, Trachea Midline. No: Lymphadenopathy, Tenderness, Thyromegaly Cardiovascular: Yes: Regular Rate and Rhythm Respiratory: Yes: Rales (bases) Gastrointestinal: Yes: Ascites Renal/: No: CVA Tenderness - Left, CVA Tenderness - Right Musculoskeletal: No: Joint Swelling, Muscle Pain Extremities: No: Calf Tenderness, Cyanosis, Erythema Edema: LLE: 3+, RLE: 3+ Neurological: Yes: WNL Imaging - Results X-ray: Report Reviewed Cat Scan: Report Reviewed Problem List - Problems (1) Anemia Assessment/Plan: Recently in hospital for anemia with hb-5.0 on admission Transfused to Hb-7.8 and Hct-25% on 10/17 discharge. RE presents with Hct of 25% -10 days later suggesting no recent blood loss. Anemia -multifactorial with bleeding, chronic disease, liver disease. As Hb/Hct is stable, would not transfuse higher. Increasing Hct may predispose to increase risk of bleeding from esophageal varices. Would maintain Hb- 8.0 gm. Code(s): D64.9 - ANEMIA, UNSPECIFIED (2) Ascites Assessment/Plan: Recent paracentesis of 7000 cc of non malignant ascites. Returns with increasing ascites 10 days later. Can consider paracentesis prior to discharge. Code(s): R18.8 - OTHER ASCITES (3) Cirrhosis Assessment/Plan: Small irregular liver on imaging-- compatible with cirrhosis. Has varices , splenomegaly, thrombocytopenia all compatible with portal hypertension. Code(s): K74.60 - UNSPECIFIED CIRRHOSIS OF LIVER Qualifiers: Ascites presence: with ascites (4) Renal mass Assessment/Plan: Being followed . Code(s): N28.89 - OTHER SPECIFIED DISORDERS OF KIDNEY AND URETER (5) Hepatocellular carcinoma Assessment/Plan: Liver with multiple filling defects m on imaging. Followed at [facility] with diagnosis of HCC. Has had TACE. No prior Sorafenib. Would have patient follow up with GI team at [facility] who have been following him. Code(s): C22.0 - LIVER CELL CARCINOMA
[2016-10-28] MEDS: INSULIN SLIDING SCALE (NOVOLOG) 1 VIAL SQ SCH ×2 (17:43→21:53)
[2016-10-29] MEDS: INSULIN SLIDING SCALE (NOVOLOG) 1 VIAL SQ SCH ×4 (06:13→21:51)
[2016-10-29 07:21] LABS: BASOPHIL 0.5 % (0-2.0); EOSINOPHIL 2.3 % (0-4.5); MCH 22.8 pg (25.7-33.7); MCHC 31.1 g/dl (32.0-35.9); MEAN CELL VOLUME 73.4 fl (80-96); MEAN PLT VOLUME 8.3 fl (7.5-11.1); NEUTROPHILS 71.2 % (42.8-82.8); PLATELET COUNT 91 K/MM3 (134-434); WHITE BLOOD COUNT 4.4 K/mm3 (4.0-10.0)
[2016-10-29 07:37] LABS: INR 1.3 (0.82-1.09); PROTHROMBIN TIME (PATIENT) 14.4 SEC (9.98-11.88)
[2016-10-29 07:40] LABS: ACTIVATED PTT 36.1 SECONDS (26.9-34.4)
[2016-10-29 08:45] LABS: ALBUMIN 2.3 g/dl (3.4-5.0); ALK PHOS 201 U/L (45-117); AMYLASE 25 U/L (25-115); ANION GAP 9 (8-16); BILIRUBIN,TOTAL 0.9 mg/dL (0.2-1.0); CALCIUM 7.5 mg/dL (8.5-10.1); CO2 24 mmol/L (21-32); CREATININE 0.5 mg/dL (0.7-1.3); GLUCOSE,RANDOM 109 mg/dL (74-106); PHOSPHOROUS 3.2 mg/dL (2.5-4.9); SGOT/AST 28 U/L (15-37); SGPT/ALT 23 U/L (12-78); TOT PROT 6.3 g/dl (6.4-8.2)
[2016-10-29] MEDS: PANTOPRAZOLE SODIUM 100 ML IVPB SCH (09:44)
[2016-10-29 10:58] LABS: ANISOCYTOSIS 2+; HYPOCHROMIA 2+; MICROCYTOSIS 1+
--- NOTE | 2016-10-29 11:53 | PN ---
Physical Exam: SUBJECTIVE: Patient seen and examined by me at bedside. Patient reports abdominal pain and bloating at home and thought it was an emergency, which prompted this hospital visit. Patient states he does not know why he keeps having recurrent abdominal pain and is unaware of any diagnosis. Patient admits that his last alcoholic drink was three months ago and has not followed up with his GI doctors in [facility] in 6 months. Otherwise patient reports resolution of abdominal symptoms. Patient denies fever, chills, nausea, vomiting, headache, chest pain, palpitations, shortness of breath. OBJECTIVE: Vital Signs Period Temp Pulse Resp BP Sys/Nicole Pulse Ox Last 24 Hr 97.4 F-98.5 F 69-82 18-20 117-145/66-82 97-99 GENERAL: The patient is awake, alert, and fully oriented, in no acute distress. LUNGS: Rales throughout lung bases bilaterally. no accessory muscle use. HEART: Regular rate and rhythm, Normal S1 and S2 without murmur, rub or gallop. ABDOMEN: Nontender, firm, (+)ascites, (+) marked distention. EXTREMITIES: 2+ pitting edema of bilateral LE NEUROLOGICAL: Normal speech, no facial droop PSYCH: Normal mood, normal affect. Laboratory Results - last 24 hr 10/28/16 10/28/16 10/29/16 16:35 21:51 05:55 WBC RBC Hgb Hct MCV MCHC RDW Plt Count MPV Neutrophils % Lymphocytes % Monocytes % Eosinophils % Basophils % Hypochromic-Microcytic Anisocytosis Microcytosis INR PTT (Actin FS) Sodium Potassium Chloride Carbon Dioxide Anion Gap BUN Creatinine Creat Clearance w eGFR POC Glucometer 154 189 101 Random Glucose Calcium Phosphorus Magnesium Total Bilirubin AST ALT Alkaline Phosphatase B-Natriuretic Peptide Total Protein Albumin Total Amylase Lipase 10/29/16 10/29/16 10/29/16 06:30 06:30 06:30 WBC 4.4 RBC 3.27 L Hgb 7.5 L Hct 24.0 L MCV 73.4 L MCHC 31.1 L RDW 24.0 H Plt Count 91 L MPV 8.3 Neutrophils % 71.2 Lymphocytes % 14.7 D Monocytes % 11.3 H Eosinophils % 2.3 D Basophils % 0.5 Hypochromic-Microcytic 2+ Anisocytosis 2+ Microcytosis 1+ INR 1.30 H PTT (Actin FS) 36.1 H Sodium 140 Potassium 3.8 Chloride 107 Carbon Dioxide 24 Anion Gap 9 BUN 9 Creatinine 0.5 L Creat Clearance w eGFR > 60 POC Glucometer Random Glucose 109 H D Calcium 7.5 L Phosphorus 3.2 Magnesium 2.0 Total Bilirubin 0.9 AST 28 ALT 23 Alkaline Phosphatase 201 H B-Natriuretic Peptide 55.48 Total Protein 6.3 L Albumin 2.3 L Total Amylase 25 D Lipase 127 Active Medications Generic Name Dose Route Start Last Admin Trade Name Emily PRN Reason Stop Dose Admin Pantoprazole Sodium 100 mls @ 200 mls/hr 10/28/16 11:00 10/29/16 09:44 Protonix 40mg Ivpb (Pre-Docked) IVPB 200 mls/hr DAILY VALERIA Administration Insulin Aspart 1 vial 10/28/16 16:30 10/29/16 06:13 Novolog Vial Sliding Scale - SQ Not Given ACHS VALERIA Protocol IMAGES Abdominal U/S (10/29/16): Moderate ascites in all 4 quadrants ASSESSMENT/PLAN: Patient is a 56 year old male with a PMHx of DMII, Esophageal varices, ascites, advanced liver cirrhosis, hepatocellular carcinoma who presented for increasing abdominal pain and distention. Patient admitted for further monitoring and management. Abdominal Pain and Distention Secondary to Advanced liver cirrhosis and Ascites -Possible etiology from [facility] or [facility]? -History of hepatocellular carcinoma -Has not followed up with a physician in over 6 months -Recent paracentesis of 7000 cc of non malignant ascites on (10/13/16) -U/S revealed moderate ascites. Will possibly need another paracentesis -Elevated INR/PTT -Followed at [facility] with diagnosis of HCC. Has had TACE. -Will call [facility] Dr. Cecilia ALLEN ([phone]) -AFP tumor marker ordered -Strict I&O's -GI consult placed Portal HTN -History of ascites, varices, cirrhosis, pancytopenia -Will avoid transfusions and fluids as it can worsen portal htn -[facility] Pancytopenia -Likely secondary from advanced liver cirrhosis -Was transfused in previous admission (10/13/16) -Hb/Hct stable. Will avoid transfusions unless hgb <7 DMII -On no home medications -ISS -BGM F/E/N -On no fluids -Electrolytes wnl -Sodium controlled diet Prophylaxis -SCD's for DVT -Protonix 40mg for GI Disposition -Will call GI doctor for more information. Patient likely requires another paracentesis Visit type - Emergency Visit Emergency Visit: Yes ED Registration Date: 10/28/16 Care time: The patient presented to the Emergency Department on the above date and was hospitalized for further evaluation of their emergent condition. - New Patient This patient is new to me today: Yes Date on this admission: 10/30/16 - Critical Care Critical Care patient: No
[2016-10-29] MEDS ORDERED: INSULIN (NOVOLOG) ASPART 100 UNITS/ML 10ML VIAL ONE (16:36)
--- NOTE | 2016-10-29 17:40 | PN ---
Teaching Attending Note Name of Resident: Patricia Rodriguez ATTENDING PHYSICIAN STATEMENT I saw and evaluated the patient. I reviewed the resident's note and discussed the case with the resident. I agree with the resident's findings and plan as documented. SUBJECTIVE: Abdominal pain is better. OBJECTIVE: Vital Signs Period Temp Pulse Resp BP Sys/Nicole Pulse Ox Last 24 Hr 98.3 F-98.5 F 82-82 18-20 122-124/78-82 97-99 HEART: S1S2, RRR LUNGS: Clear ABDOMEN: Soft, distended, non-tender, normal BS EXTREMITIES: 1+ edema ASSESSMENT AND PLAN: This is a 56 year old man with a history of type 2 DM, HTN, PUD, hepatocellular carcinoma, cirrhosis with ascites and esophageal varices who presented to the ER with abdominal pain and distention. 1. Cirrhosis with ascites and esophageal varices - Abdominal US to evaluate for paracentesis - GI consult 2. Hepatocellular carcinoma 3. Type 2 diabetes mellitus 4. PUD - Continue Protonix 5. HTN - On no medications 6. Anemia secondary to liver disease and chronic illness - Continue to monitor hemoglobin 7. Thrombocytopenia secondary to liver disease - Continue to monitor platelets 8. Coagulopathy secondary to liver disease
--- NOTE | 2016-10-29 23:03 | PN ---
Progress Note (short form) - Note Progress Note: Patient seen and examined vitals/labs/meds reviewed 56 y/o female with liver disease, ascites, s/p TACE for hepatocellular cancer, now with recurrent ascites recent paracentesis stable hct coagulopathy, mild and thrombocytopenia due to cirrhosis f/u GI consult
[2016-10-30] MEDS: INSULIN SLIDING SCALE (NOVOLOG) 1 VIAL SQ SCH ×4 (06:34→21:11)
--- NOTE | 2016-10-30 07:29 | PN ---
Physical Exam: SUBJECTIVE: Patient seen and examined by me at bedside. No overnight events. Patient reports no abdominal pain and still feels good. Explained to patient that he will likely be getting a paracentesis today due to moderate ascites in all 4 quadrants. Patient in agreement. Otherwise, patient denies fever, chills , nausea, vomiting, abdominal pain, chest pain, palpitations, shortness of breath. OBJECTIVE: Vital Signs Period Temp Pulse Resp BP Sys/Nicole Pulse Ox Last 24 Hr 98.5 F-98.8 F 77-82 18-19 120-122/68-82 97 GENERAL: The patient is awake, alert, and fully oriented, in no acute distress. LUNGS: Rales throughout lung bases bilaterally. no accessory muscle use. HEART: Regular rate and rhythm, Normal S1 and S2 without murmur, rub or gallop. ABDOMEN: Nontender, firm, (+)ascites, (+) marked distention. EXTREMITIES: 2+ pitting edema of bilateral LE NEUROLOGICAL: Normal speech, no facial droop PSYCH: Normal mood, normal affect. Laboratory Results - last 24 hr 10/29/16 10/29/16 10/29/16 06:30 06:30 06:30 WBC 4.4 RBC 3.27 L Hgb 7.5 L Hct 24.0 L MCV 73.4 L MCHC 31.1 L RDW 24.0 H Plt Count 91 L MPV 8.3 Neutrophils % 71.2 Lymphocytes % 14.7 D Monocytes % 11.3 H Eosinophils % 2.3 D Basophils % 0.5 Hypochromic-Microcytic 2+ Anisocytosis 2+ Microcytosis 1+ INR 1.30 H PTT (Actin FS) 36.1 H Sodium 140 Potassium 3.8 Chloride 107 Carbon Dioxide 24 Anion Gap 9 BUN 9 Creatinine 0.5 L Creat Clearance w eGFR > 60 POC Glucometer Random Glucose 109 H D Calcium 7.5 L Phosphorus 3.2 Magnesium 2.0 Total Bilirubin 0.9 AST 28 ALT 23 Alkaline Phosphatase 201 H B-Natriuretic Peptide 55.48 Total Protein 6.3 L Albumin 2.3 L Total Amylase 25 D Lipase 127 Tumor Marker AFP 10/29/16 10/29/16 10/29/16 06:30 12:42 16:30 WBC RBC Hgb Hct MCV MCHC RDW Plt Count MPV Neutrophils % Lymphocytes % Monocytes % Eosinophils % Basophils % Hypochromic-Microcytic Anisocytosis Microcytosis INR PTT (Actin FS) Sodium Potassium Chloride Carbon Dioxide Anion Gap BUN Creatinine Creat Clearance w eGFR POC Glucometer 121 155 Random Glucose Calcium Phosphorus Magnesium Total Bilirubin AST ALT Alkaline Phosphatase B-Natriuretic Peptide Total Protein Albumin Total Amylase Lipase Tumor Marker AFP 3.0 10/29/16 10/30/16 21:49 06:33 WBC RBC Hgb Hct MCV MCHC RDW Plt Count MPV Neutrophils % Lymphocytes % Monocytes % Eosinophils % Basophils % Hypochromic-Microcytic Anisocytosis Microcytosis INR PTT (Actin FS) Sodium Potassium Chloride Carbon Dioxide Anion Gap BUN Creatinine Creat Clearance w eGFR POC Glucometer 168 102 Random Glucose Calcium Phosphorus Magnesium Total Bilirubin AST ALT Alkaline Phosphatase B-Natriuretic Peptide Total Protein Albumin Total Amylase Lipase Tumor Marker AFP Active Medications Generic Name Dose Route Start Last Admin Trade Name Freq PRN Reason Stop Dose Admin Pantoprazole Sodium 100 mls @ 200 mls/hr 10/28/16 11:00 10/29/16 09:44 Protonix 40mg Ivpb (Pre-Docked) IVPB 200 mls/hr DAILY VALERIA Administration Insulin Aspart 1 vial 10/28/16 16:30 10/30/16 06:34 Novolog Vial Sliding Scale - SQ Not Given ACHS VALERIA Protocol IMAGES Abdominal U/S (10/29/16): Moderate ascites in all 4 quadrants ASSESSMENT/PLAN: Patient is a 56 year old male with a PMHx of DMII, Esophageal varices, ascites, advanced liver cirrhosis, hepatocellular carcinoma who presented for increasing abdominal pain and distention. Patient admitted for further monitoring and management. Abdominal Pain and Distention Secondary to Advanced liver cirrhosis and Ascites -U/S revealed moderate ascites. -Ultrasound guided paracentesis ordered -Possible etiology from [facility] or [facility]? -History of hepatocellular carcinoma -Has not followed up with a physician in over 6 months -Recent paracentesis of 7000 cc of non malignant ascites on (10/13/16) -Elevated INR/PTT -Followed at [facility] with diagnosis of HCC. Has had TACE. -AFP tumor marker ordered -Strict I&O's Portal HTN -History of ascites, varices, cirrhosis, pancytopenia -Will avoid transfusions and fluids as it can worsen portal htn Pancytopenia -Likely secondary from advanced liver cirrhosis -Was transfused in previous admission (10/13/16) -Hb/Hct stable. Will avoid transfusions unless hgb <7 DMII -On no home medications -ISS -BGM F/E/N -On no fluids -Electrolytes wnl -Sodium controlled diet Prophylaxis -SCD's for DVT -Protonix 40mg for GI Disposition -Paracentesis ordered for today Visit type - Emergency Visit Emergency Visit: Yes ED Registration Date: 10/28/16 Care time: The patient presented to the Emergency Department on the above date and was hospitalized for further evaluation of their emergent condition. - New Patient This patient is new to me today: No - Critical Care Critical Care patient: No
[2016-10-30 08:34] LABS: MCH 22.8 pg (25.7-33.7); MCHC 30.9 g/dl (32.0-35.9); MEAN CELL VOLUME 73.6 fl (80-96); MEAN PLT VOLUME 8.4 fl (7.5-11.1); PLATELET COUNT 99 K/MM3 (134-434); RDW 23.9 % (11.9-15.9)
[2016-10-30 08:48] LABS: INR 1.28 (0.82-1.09); PROTHROMBIN TIME (PATIENT) 14.1 SEC (9.98-11.88)
[2016-10-30 08:51] LABS: ACTIVATED PTT 38.7 SECONDS (26.9-34.4)
[2016-10-30 09:09] LABS: ALBUMIN 2.5 g/dl (3.4-5.0); ANION GAP 9 (8-16); CALCIUM 7.8 mg/dL (8.5-10.1); CO2 23 mmol/L (21-32); GLUCOSE,RANDOM 106 mg/dL (74-106)
[2016-10-30 09:13] LABS: ALK PHOS 223 U/L (45-117); BILIRUBIN,TOTAL 1.3 mg/dL (0.2-1.0); CREATININE 0.6 mg/dL (0.7-1.3); LDH 161 U/L (87-241); SGOT/AST 29 U/L (15-37); SGPT/ALT 25 U/L (12-78); TOT PROT 6.9 g/dl (6.4-8.2)
[2016-10-30] MEDS ORDERED: PT OWN MED DRAWER 7, Y5N ONE (09:18)
[2016-10-30] MEDS: PANTOPRAZOLE SODIUM 100 ML IVPB SCH (09:35)
[2016-10-30] MEDS ORDERED: SPIRONOLACTONE 25 MG TABLET (FP) PO SCH ×2 (10:00)
[2016-10-30] MEDS ORDERED: NADOLOL 20 MG TABLET (FP) PO SCH ×3 (10:00→10:30)
[2016-10-30] MEDS ORDERED: NADOLOL 40 MG TABLET (FP) PO SCH (10:00)
--- NOTE | 2016-10-30 11:25 | PN ---
Teaching Attending Note Name of Resident: Patricia Rodriguez ATTENDING PHYSICIAN STATEMENT I saw and evaluated the patient. I reviewed the resident's note and discussed the case with the resident. I agree with the resident's findings and plan as documented. SUBJECTIVE: Patient has no complaints. OBJECTIVE: Vital Signs Period Temp Pulse Resp BP Sys/Nicole Pulse Ox Last 24 Hr 98.1 F-99.3 F 76-79 19-24 120-131/68-76 97 HEART: S1S2, RRR LUNGS: Clear ABDOMEN: Soft, distended, non-tender, normal BS EXTREMITIES: 2+ edema ASSESSMENT AND PLAN: This is a 56 year old man with a history of type 2 DM, HTN, PUD, hepatocellular carcinoma, cirrhosis with ascites and esophageal varices who presented to the ER with abdominal pain and distention. 1. Cirrhosis with ascites and esophageal varices - Abdominal US shows moderate ascites - Plan for paracentesis by IR - Start Corgard, Aldactone 2. Hepatocellular carcinoma 3. Type 2 diabetes mellitus - Continue Novolog sliding scale 4. PUD - Continue Protonix 5. HTN - On no medications 6. Anemia secondary to liver disease and chronic illness - Hemoglobin stable 7. Thrombocytopenia secondary to liver disease - Platelets stable 8. Coagulopathy secondary to liver disease
[2016-10-30 13:39] LABS: PERITONEAL FLUID EOSINOPHIL 0 %; PERITONEAL FLUID LYMPHOCYTE 0 %; PERITONEAL FLUID MACROPHAGE 40 %; PERITONEAL FLUID MESOTHELIAL 38 %; PERITONEAL FLUID MONOCYTE 0 %; PERITONEAL FLUID NEUTROPHIL 22 %
[2016-10-30 16:31] LABS: MCH 22.5 pg (25.7-33.7); MCHC 30.5 g/dl (32.0-35.9); MEAN CELL VOLUME 73.8 fl (80-96); MEAN PLT VOLUME 8.6 fl (7.5-11.1); PLATELET COUNT 116 K/MM3 (134-434); RDW 23.9 % (11.9-15.9)
[2016-10-30 16:54] LABS: ANION GAP 7 (8-16); CALCIUM 7.7 mg/dL (8.5-10.1); CO2 23 mmol/L (21-32); CREATININE 0.7 mg/dL (0.7-1.3); GLUCOSE,RANDOM 155 mg/dL (74-106)
[2016-10-30] MEDS: ALBUMIN HUMAN 5% 250 ML IV SOLUTION IVPB ONE ×2 (17:39→17:47)
--- NOTE | 2016-10-30 19:07 | CON.GI ---
Consult Consult Specialty:: gastroenterology Referred by:: ascitis - History of Present Illness History of Present Illness: 56 y/o male with alcohol cirrhosis complicated by cirrhosis, hepatoma, ascitis and esophageal varicies. Patient s/p large volume paracentesis. He is now comfortable. He states that [facility] The name of the physician is unclear. - Past Medical History Cardio/Vascular: Yes: HTN Gastrointestinal: Yes: Esophageal Varices, Peptic Ulcer Disease Hepatobiliary: Yes: Cirrhosis, Other (esophageal varices, hepatocellular carcinoma) Renal/: Yes: Other (? 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 History of Recent Travel: No Home Medications - Allergies Allergies/Adverse Reactions: Allergies Allergy/AdvReac Type Severity Reaction Status Date / Time No Known Allergies Allergy Verified 10/28/16 04:30 - Home Medications Home Medications: Ambulatory Orders Nadolol [Corgard -] 40 mg PO DAILY #14 tablet 10/30/16 Spironolactone [Aldactone -] 100 mg PO DAILY #14 tablet 10/30/16 Family Disease History - Family Disease History Family Disease History: Heart Disease: Father, Mother (in her 40s) Physical Exam-GI Vital Signs: Vital Signs Temperature 98.2 F 10/30/16 13:58 Pulse Rate 68 10/30/16 13:58 Respiratory Rate 10/30/16 13:58 Blood Pressure 121/76 10/30/16 09:11 O2 Sat by Pulse Oximetry (%) 97 10/30/16 10:00 Constitutional: Yes: Well Nourished Eyes: Yes: Conjunctiva Clear HENT: Yes: Atraumatic Neck: Yes: Supple Cardiovascular: Yes: Regular Rate and Rhythm Respiratory: Yes: CTA Bilaterally Gastrointestinal Inspection: Yes: Ascites (--mild) ...Palpate: Yes: Soft. No: Firm/Rigid, Guarding, Hepatomegaly, Mass, Pulsatile Mass, Splenomegaly, Tenderness Edema: LLE: 1+, RLE: 1+ Labs: CBC, BMP 10/30/16 16:05 INR, PTT INR 1.28 (0.82-1.09) H 10/30/16 08:26 Hepatic Panel Total Bilirubin 1.3 mg/dL (0.2-1.0) H D 10/30/16 08:26 AST 29 U/L (15-37) 10/30/16 08:26 ALT 25 U/L (12-78) 10/30/16 08:26 Alkaline Phosphatase 223 U/L (45-117) H 10/30/16 08:26 Albumin 2.5 g/dl (3.4-5.0) L 10/30/16 08:26 Problem List - Problems (1) Anemia Assessment/Plan: stable Code(s): D64.9 - ANEMIA, UNSPECIFIED (2) Hepatocellular carcinoma Assessment/Plan: R> [facility] management [facility] please recall as necessary Code(s): C22.0 - LIVER CELL CARCINOMA
[2016-10-30 19:46] LABS: ANION GAP 3 (8-16); CALCIUM 7.5 mg/dL (8.5-10.1); CO2 26 mmol/L (21-32); CREATININE 0.7 mg/dL (0.7-1.3); GLUCOSE,RANDOM 147 mg/dL (74-106)
[2016-10-30 21:18] VITALS: BP 128/71; PULSE 64; TEMP 98
--- NOTE | 2016-10-31 12:22 | DS ---
Physical Exam: SUBJECTIVE: Patient seen and examined by me at bedside. No overnight events. Patient reports no abdominal pain and still feels good. Explained to patient that he will likely be getting a paracentesis today due to moderate ascites in all 4 quadrants. Patient in agreement. Otherwise, patient denies fever, chills , nausea, vomiting, abdominal pain, chest pain, palpitations, shortness of breath. OBJECTIVE: Vital Signs Period Temp Pulse Resp BP Sys/Nicole Pulse Ox Last 24 Hr 98 F-99.1 F 63-68 17-20 112-128/70-71 98 PHYSICAL EXAM GENERAL: The patient is awake, alert, and fully oriented, in no acute distress. LUNGS: Rales throughout lung bases bilaterally. no accessory muscle use. HEART: Regular rate and rhythm, Normal S1 and S2 without murmur, rub or gallop. ABDOMEN: Nontender, firm, (+)ascites, (+) marked distention. EXTREMITIES: 2+ pitting edema of bilateral LE NEUROLOGICAL: Normal speech, no facial droop PSYCH: Normal mood, normal affect. LABS Laboratory Results - last 24 hr 10/30/16 10/30/16 10/30/16 11:45 12:39 15:30 WBC RBC Hgb Hct MCV MCHC RDW Plt Count MPV Sodium 137 Potassium 4.2 Chloride 107 Carbon Dioxide 23 Anion Gap 7 L BUN 9 Creatinine 0.7 POC Glucometer 106 Random Glucose 155 H D Calcium 7.7 L Peritoneal WBC 210 Peritoneal RBC 208 Periton Neutrophils 22 Periton Lymphocytes 0 Peritoneal Monocytes 0 Peritoneal Eosinophils 0 Periton Mesothelial 38 Periton Macrophages 40 Peritoneal Albumin 1 Peritoneal LDH 55 Peritoneal Glucose 115 Peritoneal Amylase 9 Peritoneal Triglycerid 15 10/30/16 10/30/16 10/30/16 16:05 16:29 18:45 WBC 5.0 RBC 3.63 L Hgb 8.2 L Hct 26.8 L MCV 73.8 L MCHC 30.5 L RDW 23.9 H Plt Count 116 L MPV 8.6 Sodium 137 Potassium 4.2 Chloride 108 H Carbon Dioxide 26 Anion Gap 3 L BUN 11 D Creatinine 0.7 POC Glucometer 171 Random Glucose 147 H Calcium 7.5 L Peritoneal WBC Peritoneal RBC Periton Neutrophils Periton Lymphocytes Peritoneal Monocytes Peritoneal Eosinophils Periton Mesothelial Periton Macrophages Peritoneal Albumin Peritoneal LDH Peritoneal Glucose Peritoneal Amylase Peritoneal Triglycerid 10/30/16 21:08 WBC RBC Hgb Hct MCV MCHC RDW Plt Count MPV Sodium Potassium Chloride Carbon Dioxide Anion Gap BUN Creatinine POC Glucometer 127 Random Glucose Calcium Peritoneal WBC Peritoneal RBC Periton Neutrophils Periton Lymphocytes Peritoneal Monocytes Peritoneal Eosinophils Periton Mesothelial Periton Macrophages Peritoneal Albumin Peritoneal LDH Peritoneal Glucose Peritoneal Amylase Peritoneal Triglycerid IMAGES: Abdominal U/S (10/29/16): Moderate ascites in all 4 quadrants HOSPITAL COURSE: Patient is a 56 year old male with a PMHx of DMII, Esophageal varices, ascites, advanced liver cirrhosis, hepatocellular carcinoma who presented for increasing abdominal pain and distention. U/S performed and patient was found to have moderate ascites in all 4 quadrants. Patient started on Nadolol and Aldactone. U/S guided paracentesis was done and 7.7 liters of serious fluid was drained. Peritoneal fluid revealed no SBP but SAAG score of 1.5, consistent with portal HTN. Patient after procedure was given 50gm of Albumin. Dr. Pereira, GI and liver specialist at [facility] was contacted and reports that patient has not been there since 2014. An appointment was set up with his practice for October at 2:15pm. Explained to the patient the dangers and risks of not following up with his appointments. Patient verbalized understanding and reports that he will follow up and make it to his appointment. Patient stable for discharge. Date of Admission:10/28/16 Date of Discharge: 10/31/16 Minutes to complete discharge: 35 Discharge Summary Reason For Visit: ASCITES CIRRHOSIS Current Active Problems Anemia (Acute) Condition: Stable - Instructions Diet, Activity, Other Instructions: -You have been admitted for abdominal pain and was found to have fluids in the abdomen. About 7.7 liters were taken out -You have been prescribed two medications that you need to [employer] from the pharmacy and must take. One is called Nadolol and one is called aldactone -I have a scheduled an appointment for you with the Stomach and liver doctor with Dr. Grey on October at 2:15pm. The address to his office is [address] [place] [address]. His number is [phone] -You must follow up with your Primary Care Physician next week -Avoid taking large amounts of fluid -If you notice any worsening symptoms, return to the emergency department. Disposition: HOME - Home Medications Comprehensive Discharge Medication List: Ambulatory Orders Nadolol [Corgard -] 40 mg PO DAILY #14 tablet 10/30/16 Spironolactone [Aldactone -] 100 mg PO DAILY #14 tablet 10/30/16 This patient is new to me today: No Emergency Visit: Yes ED Registration Date: 10/28/16 Care time: The patient presented to the Emergency Department on the above date and was hospitalized for further evaluation of their emergent condition. Critical Care patient: No - Discharge Referral [facility]erred to [facility] Med P.C.: No
--- NOTE | 2016-10-31 15:13 | PATH ---
Cytology Non-Gynecological Report Patient Name: BRENDA VELASCO [facility]. Rec. #: [id number] /Age/Gender: 1960 (Age: 56) / M Account: [id number] Location: [address] [place] [address] Taken: 10/30/2016 Received: 10/30/2016 Reported: 10/31/2016 Physicians: Leo Saba M.D. Specimen(s) Received A: ABDOMINAL FLUID IN 50% ALCOHOL B: ABDOMINAL FLUID FRESH Clinical History Ascites Final Diagnosis A,B. ABDOMINAL FLUID, PARACENTESIS: SATISFACTORY FOR EVALUATION. NO MALIGNANT CELLS IDENTIFIED. REACTIVE MESOTHELIAL CELLS, HISTIOCYTES, AND MIXED INFLAMMATORY CELLS. Electronically Signed Glenn Alvarenga M.D. Gross Description A. Received is a 50 cc of yellow fluid in 50% alcohol. One cytofunnel slide and one cell block are made. B. Received is 8000 cc of yellow fluid fresh. One cytofunnel slide and one cell block are made.
== END 2016-10-30 21:45 | disposition home or self-care (01) | DRG 264 ==
LOC: JER 03:15 → JERBED 06:08 → J8W 14:03 → J6S 10-29 14:34
PROVIDERS: ADMIT Internal Medicine; ATTEND Internal Medicine
PROC: 0W9G3ZX Drainage of Peritoneal Cavity, Percutaneous Approach, Diagnostic (ICD-10-PCS; principal; 2016-10-30)
DX: C22.0 Liver cell carcinoma (principal); K74.69 Other cirrhosis of liver; R18.8 Other ascites; I10 Essential (primary) hypertension; E11.9 Type 2 diabetes mellitus without complications; D64.9 Anemia, unspecified; D61.818 Other pancytopenia; Z87.11 Personal history of peptic ulcer disease; R16.1 Splenomegaly, not elsewhere classified; K76.6 Portal hypertension; I85.10 Secondary esophageal varices without bleeding; D68.4 Acquired coagulation factor deficiency
CPT/HCPCS: 36415; 71010-TC; 76705-TC; 76942-TC; 80048; 80053; 81003; 81015; 82042; 82105; 82140; 82150; 82550; 82945; 83615; 83690; 83735; 83880; 84100; 84478; 84484; 85025; 85027; 85610; 85730; 86850; 86900; 86901; 87040; 87070; 87075; 87077; 87086; 87102; 87116; 87205; 87206; 87210; 87899; 88108; 88305-TC; 89051; 99283-25

== ENCOUNTER 2016-12-29 11:38 | Inpatient (IN) | payer OTHER ==
--- NOTE | 2016-12-29 14:42 | PDOC ---
History of Present Illness - History of Present Illness Initial Comments: 12/29/16 17:30 The patient is a 56 year old male, with a significant past medical history of HTN and DM, who presents to the emergency department with abdominal distension and bilateral LE edema for the past 2 months. The patient notes having mild abdominal pain that is localized at his epigastric area. He reports over the past 2 months has been getting progressively worse. He denies any recent fevers , chills, headache or dizziness. He denies any recent nausea, vomit, diarrhea or constipation. He denies any recent chest pain or shortness of breath. He denies any recent dysuria, frequency, urgency or hematuria. Allergies: NKA Past surgical history: None reported. Social History: Nonsmoker. Denies EtOH use and recreational drug use. Primary Care Physician: N/A <Maria Isabel Toussaint - Last Filed: 12/29/16 17:30> <Lisa Zaragoza - Last Filed: 12/29/16 18:05> - General Chief Complaint: Pain Stated Complaint: FLUID IN ABD Time Seen by Provider: 12/29/16 14:40 Past History <Maria Isabel Toussaint - Last Filed: 12/29/16 17:30> - Past Medical History Anemia: No Asthma: No Cancer: No Cardiac Disorders: No CVA: No COPD: No CHF: No Dementia: No Diabetes: Yes (NO MEDS) GI Disorders: No Disorders: No HTN: Yes Hypercholesterolemia: No Liver Disease: No Seizures: No Thyroid Disease: No - Surgical History Abdominal Surgery: No Appendectomy: No Cardiac Surgery: No Cholecystectomy: No Lung Surgery: No Neurologic Surgery: No - Psycho/Social/Smoking Cessation Hx Anxiety: No Suicidal Ideation: No Smoking History: Never smoked Have you smoked in the past 12 months: No If you are a former smoker, when did you quit?: 25 years ago Information on smoking cessation initiated: No Hx Alcohol Use: No Drug/Substance Use Hx: No Substance Use Type: None <Lisa Zaragoza - Last Filed: 12/29/16 18:05> - Past Medical History Allergies/Adverse Reactions: Allergies Allergy/AdvReac Type Severity Reaction Status Date / Time No Known Allergies Allergy Verified 12/29/16 11:42 Home Medications: Ambulatory Orders Nadolol [Corgard -] 40 mg PO DAILY #14 tablet 10/30/16 Spironolactone [Aldactone -] 100 mg PO DAILY #14 tablet 10/30/16 Review of Systems - Review of Systems Comments:: 12/29/16 17:30 GENERAL/CONSTITUTIONAL: No fever or chills. No weakness. HEAD, EYES, EARS, NOSE AND THROAT: No change in vision. No ear pain or discharge. No sore throat. CARDIOVASCULAR: No chest pain or shortness of breath. RESPIRATORY: No cough, wheezing, or hemoptysis. GASTROINTESTINAL: +abdominal distention. No nausea, vomiting, diarrhea or constipation. GENITOURINARY: No dysuria, frequency, or change in urination. MUSCULOSKELETAL: +LE swelling. No joint or muscle swelling or pain. No neck or back pain. SKIN: No rash NEUROLOGIC: No headache, vertigo, loss of consciousness, or change in strength/ sensation. ENDOCRINE: No increased thirst. No abnormal weight change. HEMATOLOGIC/LYMPHATIC: No anemia, easy bleeding, or history of blood clots. ALLERGIC/IMMUNOLOGIC: No hives or skin allergy. <Maria Isabel Toussaint - Last Filed: 12/29/16 17:30> *Physical Exam - Vital Signs Last Vital Signs Temp Pulse Resp BP Pulse Ox 98.7 F 104 H 18 130/59 100 12/29/16 11:42 12/29/16 11:42 12/29/16 11:42 12/29/16 11:42 12/29/16 11:42 - Physical Exam Comments: 12/29/16 17:31 GENERAL: Awake, alert, and fully oriented, in no acute distress HEAD: No signs of trauma EYES: PERRLA, EOMI, sclera anicteric, conjunctiva clear ENT: Auricles normal inspection, hearing grossly normal, nares patent, oropharynx clear without exudates. Moist mucosa NECK: Normal ROM, supple, no lymphadenopathy, JVD, or masses LUNGS: Breath sounds equal, clear to auscultation bilaterally. No wheezes, and no crackles HEART: Regular rate and rhythm, normal S1 and S2, no murmurs, rubs or gallops ABDOMEN: +Dullness to percussion. Bulging flanks. Nontender, normoactive bowel sounds. No guarding, no rebound. No masses EXTREMITIES: 2+pitting edema to his knees. Normal range of motion. No clubbing or cyanosis. No cords, erythema, or tenderness NEUROLOGICAL: Normal speech, cranial nerves intact, negative pronator drift, 5/ 5 strength in all 4 extremities, normal sensation to light touch in all 4 extremities, normal cerebellar exam, normal gait, normal reflexes and tone SKIN: Warm, Dry, normal turgor, no rashes or lesions noted. <Maria Isabel Toussaint - Last Filed: 12/29/16 17:30> - Vital Signs Last Vital Signs Temp Pulse Resp BP Pulse Ox 98.7 F 104 H 18 130/59 100 12/29/16 11:42 12/29/16 11:42 12/29/16 11:42 12/29/16 11:42 12/29/16 11:42 <Lisa Zaragoza - Last Filed: 12/29/16 18:05> ED Treatment Course - LABORATORY CBC & Chemistry Diagram: 12/29/16 15:20 12/29/16 15:20 - ADDITIONAL ORDERS Additional order review: Laboratory Results 12/29/16 12/29/16 12/29/16 15:50 15:30 15:30 INR 1.28 H PTT (Actin FS) 35.7 H Sodium Potassium Chloride Carbon Dioxide Anion Gap BUN Creatinine Creat Clearance w eGFR Random Glucose Calcium Total Bilirubin AST ALT Alkaline Phosphatase Total Protein Albumin Urine Color Lidia Urine Appearance Slcloudy Urine pH 5.0 Urine Protein 1+ H Urine Glucose (UA) Negative Urine Ketones Negative Urine Blood Negative Urine Nitrite Negative Urine Bilirubin 2.0 Urine Urobilinogen 4.0 e.u/dl Ur Leukocyte Esterase Negative Urine RBC 2 Urine WBC 4 Ur Epithelial Cells Rare Urine Mucus Many Blood Type O POSITIVE Antibody Screen Negative 12/29/16 15:20 INR PTT (Actin FS) Sodium 141 Potassium 4.2 Chloride 106 Carbon Dioxide 24 Anion Gap 11 BUN 14 D Creatinine 0.7 Creat Clearance w eGFR > 60 Random Glucose 117 H D Calcium 7.9 L Total Bilirubin 1.3 H AST 27 ALT 20 Alkaline Phosphatase 227 H Total Protein 7.5 Albumin 2.5 L Urine Color Urine Appearance Urine pH Urine Protein Urine Glucose (UA) Urine Ketones Urine Blood Urine Nitrite Urine Bilirubin Urine Urobilinogen Ur Leukocyte Esterase Urine RBC Urine WBC Ur Epithelial Cells Urine Mucus Blood Type Antibody Screen 12/29/16 15:20 RBC 3.84 L MCV 71.1 L MCHC 31.3 L RDW 20.9 H D MPV 8.8 Neutrophils % 76.4 Lymphocytes % 11.4 D Monocytes % 11.1 H Eosinophils % 0.9 Basophils % 0.2 <Maria Isabel Toussaint - Last Filed: 12/29/16 17:30> - LABORATORY CBC & Chemistry Diagram: 12/29/16 15:20 12/29/16 15:20 <Lisa Zaragoza - Last Filed: 12/29/16 18:05> Medical Decision Making - Medical Decision Making 12/29/16 16:09 56-year-old male history of end-stage liver disease status post paracentesis presents with increased abdominal distention associated with epigastric pain. Exam remarkable for distended abdomen with dullness to percussion and bulging flanks consistent with increased ascites. Low likelihood to have SBP however given chief complaint of epigastric pain while do a diagnostic for a to investigate with a low threshold to cover for SBP. -labs -diagnostic para -admit 12/29/16 18:04 Diagnostic para completed. Cloudy fluid sent in to lab for fluid studies. Patient admitted to Dr. Sutherland for further management <Lisa Zaragoza - Last Filed: 12/29/16 18:05> *DC/Admit/Observation/Transfer - Attestations Scribe Attestion: 12/29/16 17:31 Documentation prepared by Maria Isabel Toussaint, acting as medical director of hospice for Lisa Zaragoza MD. <Maria Isabel Toussaint - Last Filed: 12/29/16 17:30> - Discharge Dispostion Admit: Yes - Attestations Physician Attestion: 12/29/16 18:05 I, Dr. Lisa Zaragoza MD, attest that this document has been prepared under my direction and personally reviewed by me in its entirety. I further attest, that it accurately reflects all work, treatment, procedures and medical decision -making performed by me. <Lisa Zaragoza - Last Filed: 12/29/16 18:05> Diagnosis at time of Disposition: Epigastric pain - Discharge Dispostion Condition at time of disposition: Stable
[2016-12-29 15:26] LABS: BASOPHIL 0.2 % (0-2.0); EOSINOPHIL 0.9 % (0-4.5); MCH 22.2 pg (25.7-33.7); MCHC 31.3 g/dl (32.0-35.9); MEAN CELL VOLUME 71.1 fl (80-96); MEAN PLT VOLUME 8.8 fl (7.5-11.1); NEUTROPHILS 76.4 % (42.8-82.8); PLATELET COUNT 123 K/MM3 (134-434); RDW 20.9 % (11.9-15.9); WHITE BLOOD COUNT 5.3 K/mm3 (4.0-10.0)
[2016-12-29 15:38] LABS: ALBUMIN 2.5 g/dl (3.4-5.0); ANION GAP 11 (8-16); BILIRUBIN,TOTAL 1.3 mg/dL (0.2-1.0); CALCIUM 7.9 mg/dL (8.5-10.1); CO2 24 mmol/L (21-32); CREATININE 0.7 mg/dL (0.7-1.3); GLUCOSE,RANDOM 117 mg/dL (74-106); SGOT/AST 27 U/L (15-37); SGPT/ALT 20 U/L (12-78); TOT PROT 7.5 g/dl (6.4-8.2)
[2016-12-29 15:39] LABS: ALK PHOS 227 U/L (45-117)
[2016-12-29 15:55] LABS: INR 1.28 (0.82-1.09); PROTHROMBIN TIME (PATIENT) 14.1 SEC (9.98-11.88)
[2016-12-29 15:57] LABS: ACTIVATED PTT 35.7 SECONDS (26.9-34.4)
[2016-12-29 16:18] LABS: URINE APPEARANCE SLCLOUDY; URINE BLOOD NEGATIVE (NEGATIVE); URINE COLOR AMBER; URINE GLUCOSE (UA) NEGATIVE (NEGATIVE); URINE KETONE NEGATIVE (NEGATIVE); URINE LEUK ESTERASE NEGATIVE (NEGATIVE); URINE NITRITE NEGATIVE (NEGATIVE); URINE UROBILINOGEN 4.0 E.U/dl mg/dL (0.2-1.0)
[2016-12-29 16:32] LABS: URINE PROTEIN 1+ (NEGATIVE)
[2016-12-29 17:17] LABS: URINE MUCUS MANY; URINE RBC 2 /hpf (0-3); URINE WBC 4 /hpf (3-5)
[2016-12-29 17:58] LABS: MAGNESIUM 2.2 mg/dL (1.8-2.4)
[2016-12-29 18:41] LABS: ANISOCYTOSIS 2+; HYPOCHROMIA 1+; PLATELET ESTIMATE DECREASED (NORMAL)
--- NOTE | 2016-12-29 19:45 | HP ---
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 pt was admitted in the past , had paracentesis done, follow at [facility]. came today as abdominal distension getting worse and pain - - Past Medical History Cardiovascular: Yes: HTN Gastrointestinal: Yes: Esophageal Varices, Peptic Ulcer Disease Hepatobiliary: Yes: Cirrhosis, Other (esophageal varices, hepatocellular carcinoma) Renal/: Yes: Other (? 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 History of Recent Travel: No Home Medications - Allergies Allergies/Adverse Reactions: Allergies Allergy/AdvReac Type Severity Reaction Status Date / Time No Known Allergies Allergy Verified 12/29/16 11:42 - Home Medications Home Medications: Ambulatory Orders Nadolol [Corgard -] 40 mg PO DAILY #14 tablet 10/30/16 Spironolactone [Aldactone -] 100 mg PO DAILY #14 tablet 10/30/16 Family Disease History - Family Disease History Family Disease History: Heart Disease: Father, Mother (in her 40s) Physical Examination Vital Signs: Vital Signs Temperature 98.7 F 12/29/16 11:42 Pulse Rate 104 H 12/29/16 11:42 Respiratory Rate 18 12/29/16 11:42 Blood Pressure 130/59 12/29/16 11:42 O2 Sat by Pulse Oximetry (%) 100 12/29/16 11:42 Constitutional: Yes: No Distress HENT: Yes: Atraumatic Neck: Yes: Supple Cardiovascular: Yes: Regular Rate and Rhythm Respiratory: Yes: CTA Bilaterally Gastrointestinal: Yes: Normal Bowel Sounds Extremities: Yes: WNL Neurological: Yes: Alert, Oriented Problem List - Problems (1) Anemia Assessment/Plan: WILL MONITOR TRANSFUSE IF NEEDED Code(s): D64.9 - ANEMIA, UNSPECIFIED (2) Ascites Assessment/Plan: PARACENTIS BY IR TOMORROW Code(s): R18.8 - OTHER ASCITES (3) Cirrhosis Code(s): K74.60 - UNSPECIFIED CIRRHOSIS OF LIVER (4) Diabetes mellitus Assessment/Plan: CHECK BGMS Code(s): E11.9 - TYPE 2 DIABETES MELLITUS WITHOUT COMPLICATIONS (5) Esophageal varices Assessment/Plan: STABLE Code(s): I85.00 - ESOPHAGEAL VARICES WITHOUT BLEEDING (6) HTN (hypertension) Assessment/Plan: ON MEDS STABLE Code(s): I10 - ESSENTIAL (PRIMARY) HYPERTENSION (7) Hepatocellular carcinoma Assessment/Plan: PT HAS BEEN FOLLOWED AT [facility] PT WAS SEEN HERE AT [facility] LAST ADMISSION BY ONCOLOGY Code(s): C22.0 - LIVER CELL CARCINOMA Assessment/Plan Laboratory Tests 12/29/16 12/29/16 12/29/16 15:20 15:20 15:30 WBC 5.3 RBC 3.84 L Hgb 8.5 L Hct 27.3 L MCV 71.1 L MCH 22.2 L MCHC 31.3 L RDW 20.9 H D Plt Count 123 L MPV 8.8 Neutrophils % 76.4 Lymphocytes % 11.4 D Monocytes % 11.1 H Eosinophils % 0.9 Basophils % 0.2 Hypochromia 1+ Platelet Estimate Decreased Anisocytosis 2+ Rouleaux 2+ INR 1.28 H PTT (Actin FS) 35.7 H Sodium 141 Potassium 4.2 Chloride 106 Carbon Dioxide 24 Anion Gap 11 BUN 14 D Creatinine 0.7 Creat Clearance w eGFR > 60 Random Glucose 117 H D Calcium 7.9 L Magnesium Total Bilirubin 1.3 H AST 27 ALT 20 Alkaline Phosphatase 227 H Total Protein 7.5 Albumin 2.5 L Lipase Urine Color Urine Appearance Urine pH Urine Protein Urine Glucose (UA) Urine Ketones Urine Blood Urine Nitrite Urine Bilirubin Urine Urobilinogen Ur Leukocyte Esterase Urine RBC Urine WBC Ur Epithelial Cells Urine Mucus Blood Type Antibody Screen 12/29/16 12/29/16 12/29/16 15:30 15:50 17:23 WBC RBC Hgb Hct MCV MCH MCHC RDW Plt Count MPV Neutrophils % Lymphocytes % Monocytes % Eosinophils % Basophils % Hypochromia Platelet Estimate Anisocytosis Rouleaux INR PTT (Actin FS) Sodium Potassium Chloride Carbon Dioxide Anion Gap BUN Creatinine Creat Clearance w eGFR Random Glucose Calcium Magnesium 2.2 Total Bilirubin AST ALT Alkaline Phosphatase Total Protein Albumin Lipase 117 Urine Color Lidia Urine Appearance Slcloudy Urine pH 5.0 Urine Protein 1+ H Urine Glucose (UA) Negative Urine Ketones Negative Urine Blood Negative Urine Nitrite Negative Urine Bilirubin 2.0 Urine Urobilinogen 4.0 e.u/dl Ur Leukocyte Esterase Negative Urine RBC 2 Urine WBC 4 Ur Epithelial Cells Rare Urine Mucus Many Blood Type O POSITIVE Antibody Screen Negative
[2016-12-30 06:00] VITALS: BMI 45.3
[2016-12-30] MEDS ORDERED: PT OWN MED DRAWER 7, Y5N ONE (09:03)
[2016-12-30] MEDS: SPIRONOLACTONE 25 MG TABLET (FP) PO SCH (09:05)
[2016-12-30] MEDS: NADOLOL 20 MG TABLET (FP) PO SCH (09:59)
--- NOTE | 2016-12-30 14:35 | CON.GI ---
Consult Consult Specialty:: Gastroenterology Reason for Consultation:: asacitis - History of Present Illness History of Present Illness: 89 y/o M with PMH of Alcohol cirrhosis complicated with esophageal varices and bleeding antral ulcer , uncontrolled ascitis with multiple admissions for the same problem was admitted because of uncontrolled ascitis. He was diagnosed to have Hepatoma previously but on further review of records the AFP remained to be normal and imaging studies were unequivocal. There is also no evidence of liver biopsy to confirm the diagnoses. Further workup is necessary. He underwent large volume paracentesis. 8 liters was removed. He is clinicallly improved - Past Medical History Cardio/Vascular: Yes: HTN Gastrointestinal: Yes: Esophageal Varices, Peptic Ulcer Disease Hepatobiliary: Yes: Cirrhosis, Other (esophageal varices, hepatocellular carcinoma) Renal/: Yes: Other (? 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 History of Recent Travel: No Home Medications - Allergies Allergies/Adverse Reactions: Allergies Allergy/AdvReac Type Severity Reaction Status Date / Time No Known Allergies Allergy Verified 12/29/16 11:42 - Home Medications Home Medications: Ambulatory Orders Nadolol [Corgard -] 40 mg PO DAILY #14 tablet 10/30/16 Spironolactone [Aldactone -] 100 mg PO DAILY #14 tablet 10/30/16 Family Disease History - Family Disease History Family History: Denies (colon and gstric ulcer) Family Disease History: Heart Disease: Father, Mother (in her 40s) Physical Exam-GI Vital Signs: Vital Signs Temperature 98.1 F 12/30/16 08:39 Pulse Rate 92 H 12/30/16 08:39 Respiratory Rate 18 12/30/16 08:39 Blood Pressure 158/81 12/30/16 08:39 O2 Sat by Pulse Oximetry (%) 95 12/30/16 11:00 Constitutional: Yes: Cachectic Eyes: Yes: Conjunctiva Clear HENT: Yes: Normocephalic Neck: Yes: Trachea Midline Cardiovascular: Yes: Regular Rate and Rhythm Respiratory: Yes: CTA Bilaterally Gastrointestinal Inspection: Yes: Ascites ...Palpate: Yes: Soft. No: Firm/Rigid, Guarding, Hepatomegaly, Mass, Pulsatile Mass, Splenomegaly, Tenderness, Tenderness, Epigastium Edema: LLE: 3+, RLE: 3+ Labs: INR, PTT INR 1.28 (0.82-1.09) H 12/29/16 15:30 Problem List - Problems (1) Ascites Assessment/Plan: R> patient is a good candidate for the TIPS procedure. Please arrange foolow-up at [facility] prior to discharge Code(s): R18.8 - OTHER ASCITES (2) Neoplasm, liver Assessment/Plan: doubt Hepatoma vs hemagioma R> MRI of the liver i, will need liver biopsy if Hepatoma is considered Oncology consult
[2016-12-30] MEDS: FUROSEMIDE 40 MG TABLET (FP) PO SCH (15:17)
[2016-12-30] MEDS ORDERED: ACETAMINOPHEN 325 MG TABLET (FP) PO ONE (17:30)
--- NOTE | 2016-12-30 19:09 | PN ---
Progress Note, Physician History of Present Illness: doing well - Current Medication List Current Medications: Active Medications Albumin Human (Albumin Human 25%) 12.5 gm IVPB Q30M [facility] Stop: 12/30/16 20:31 Furosemide (Lasix -) 40 mg PO DAILY [facility] Last Admin: 12/30/16 15:17 Dose: 40 mg Nadolol (Corgard -) 40 mg PO DAILY [facility] Last Admin: 12/30/16 09:59 Dose: 40 mg Spironolactone (Aldactone -) 100 mg PO DAILY [facility] Last Admin: 12/30/16 09:05 Dose: 100 mg - Objective Vital Signs: Vital Signs Temperature 99.4 F 12/30/16 14:48 Pulse Rate 70 12/30/16 14:48 Respiratory Rate 16 12/30/16 14:48 Blood Pressure 110/70 12/30/16 14:48 O2 Sat by Pulse Oximetry (%) 95 12/30/16 11:00 Constitutional: Yes: No Distress HENT: Yes: Atraumatic Neck: Yes: Supple Cardiovascular: Yes: Regular Rate and Rhythm Respiratory: Yes: CTA Bilaterally Gastrointestinal: Yes: Normal Bowel Sounds, Ascites Extremities: Yes: WNL Neurological: Yes: Alert, Oriented Labs: INR, PTT INR 1.28 (0.82-1.09) H 12/29/16 15:30 Problem List - Problems (1) Anemia Assessment/Plan: WILL MONITOR TRANSFUSE IF NEEDED Code(s): D64.9 - ANEMIA, UNSPECIFIED (2) Ascites Assessment/Plan: PARACENTESIS DONE 8.6 LITRES OF FLUID TAKEN OUT WILL GIVE ALBUMIN Code(s): R18.8 - OTHER ASCITES (3) Cirrhosis Code(s): K74.60 - UNSPECIFIED CIRRHOSIS OF LIVER (4) Diabetes mellitus Assessment/Plan: CHECK BGMS Code(s): E11.9 - TYPE 2 DIABETES MELLITUS WITHOUT COMPLICATIONS (5) Esophageal varices Assessment/Plan: STABLE ON MED Code(s): I85.00 - ESOPHAGEAL VARICES WITHOUT BLEEDING (6) HTN (hypertension) Assessment/Plan: ON MEDS STABLE Code(s): I10 - ESSENTIAL (PRIMARY) HYPERTENSION (7) Hepatocellular carcinoma Assessment/Plan: PT HAS BEEN FOLLOWED AT [facility] PT WAS SEEN HERE AT [facility] LAST ADMISSION BY ONCOLOGY Code(s): C22.0 - LIVER CELL CARCINOMA
[2016-12-30] MEDS: ALBUMIN HUMAN 25% 12.5 GM/50 ML VIAL IVPB SCH ×4 (19:45→22:48)
[2016-12-31 08:09] LABS: BASOPHIL 0.5 % (0-2.0); EOSINOPHIL 2.6 % (0-4.5); MCH 21.9 pg (25.7-33.7); MCHC 30.7 g/dl (32.0-35.9); MEAN CELL VOLUME 71.4 fl (80-96); NEUTROPHILS 67.7 % (42.8-82.8); PLATELET COUNT 94 K/MM3 (134-434); RDW 20.2 % (11.9-15.9); WHITE BLOOD COUNT 3.9 K/mm3 (4.0-10.0)
[2016-12-31 09:05] LABS: ALBUMIN 2.4 g/dl (3.4-5.0)
[2016-12-31 09:11] LABS: ALK PHOS 183 U/L (45-117); ANION GAP 7 (8-16); CALCIUM 7.6 mg/dL (8.5-10.1); CO2 25 mmol/L (21-32); CREATININE 0.5 mg/dL (0.7-1.3); GLUCOSE,RANDOM 91 mg/dL (74-106); SGOT/AST 24 U/L (15-37); SGPT/ALT 17 U/L (12-78); TOT PROT 6.1 g/dl (6.4-8.2)
[2016-12-31] MEDS: NADOLOL 20 MG TABLET (FP) PO SCH (09:39)
[2016-12-31] MEDS: SPIRONOLACTONE 25 MG TABLET (FP) PO SCH (09:39)
[2016-12-31] MEDS: FUROSEMIDE 40 MG TABLET (FP) PO SCH (09:39)
[2016-12-31 11:36] VITALS: BP 104/64; PULSE 62; TEMP 97.7
--- NOTE | 2016-12-31 12:49 | DS ---
Physical Examination Vital Signs: Vital Signs Temperature 97.7 F 12/31/16 08:00 Pulse Rate 62 12/31/16 08:00 Respiratory Rate 18 12/31/16 08:00 Blood Pressure 104/64 12/31/16 08:00 O2 Sat by Pulse Oximetry (%) 98 12/31/16 11:00 Constitutional: Yes: No Distress HENT: Yes: Atraumatic Neck: Yes: Supple Cardiovascular: Yes: Regular Rate and Rhythm Respiratory: Yes: CTA Bilaterally Gastrointestinal: Yes: Normal Bowel Sounds, Ascites (much less) Edema: LLE: 1+ (since admission), RLE: 1+ Neurological: Yes: Alert, Oriented Labs: CBC, BMP 12/31/16 06:00 12/31/16 06:00 Discharge Summary Reason For Visit: EPIGASTRIC PAIN Current Active Problems Anemia (Acute) Epigastric pain (Acute) Neoplasm, liver (Acute) Condition: Stable - Home Medications Comprehensive Discharge Medication List: Ambulatory Orders Nadolol [Corgard -] 40 mg PO DAILY #14 tablet 10/30/16 Spironolactone [Aldactone -] 100 mg PO DAILY #14 tablet 10/30/16 pt can be dc home got albumin h/h down..pt has a follow up appointment at [facility] in a week d/w dr gutierrez pt can see dr medley as out patient if needed fu [facility] 1 week
== END 2016-12-31 14:28 | disposition home or self-care (01) | DRG 264 ==
LOC: JER 11:38 → JERBED 18:05 → J8W 20:32
PROVIDERS: ADMIT Internal Medicine; ATTEND Internal Medicine
PROC: 0W9G3ZX Drainage of Peritoneal Cavity, Percutaneous Approach, Diagnostic (ICD-10-PCS; principal; 2016-12-30)
DX: K70.31 Alcoholic cirrhosis of liver with ascites (principal); C22.0 Liver cell carcinoma; R64 Cachexia; D64.9 Anemia, unspecified; I85.10 Secondary esophageal varices without bleeding; E11.9 Type 2 diabetes mellitus without complications; I10 Essential (primary) hypertension; Z87.891 Personal history of nicotine dependence; Z87.11 Personal history of peptic ulcer disease; Z68.34 Body mass index [BMI] 34.0-34.9, adult; F10.10 Alcohol abuse, uncomplicated; Y90.9 Presence of alcohol in blood, level not specified
CPT/HCPCS: 36415; 71020-TC; 74182-TC; 76942-TC; 80053; 81003; 81015; 82042; 82150; 82945; 83615; 83690; 83735; 84157; 85025; 85610; 85730; 86850; 86900; 86901; 87070; 87075; 87086; 87205; 99283-25; A9576; P9047

== ENCOUNTER 2017-01-20 10:58 | Inpatient (IN) | payer OTHER ==
[2017-01-20 11:06] VITALS: BMI 33.3
[2017-01-20] MEDS ORDERED: PANTOPRAZOLE SODIUM 80 MG in SODIUM CHLORIDE 100 ML IVPB ONE (12:20)
[2017-01-20] MEDS ORDERED: SODIUM CHLORIDE 500 ML IV ONE (12:20)
[2017-01-20] MEDS ORDERED: OCTREOTIDE ACETATE 50 MCG/1 ML - 1 ML VIAL IVPUSH ONE (12:20)
--- NOTE | 2017-01-20 12:20 | PDOC ---
History of Present Illness - General History Source: Patient Exam Limitations: No Limitations - History of Present Illness Initial Comments: 01/20/17 12:45 Patient is a 56 y/o male with alcoholic cirrhosis, hepatoma, ascites, bleeding antral ulcer, esophageal varices and HTN who presents to the ED with vomiting, abdominal pain and diarrhea. Patient notes that last night he had 2 episode of bloody vomiting last night and 2 episodes of dark stool this morning. Patient reports epigastric pain. He states that his last alcoholic drink was Mar 2016 and denies any EtOH use. Patient is not actively vomiting in the ED and denies nausea. He is not on blood thinners He reports lightheadedness and slight headache. He reports decreased PO. PMD - none GI - none, seen by Dr. Zuniga in the recent admissions <Skylar Short - Last Filed: 01/20/17 12:56> <Santana Tapia - Last Filed: 01/20/17 14:28> - General Chief Complaint: Vomiting Blood Stated Complaint: VOMITING BLOOD Time Seen by Provider: 01/20/17 11:49 Past History <Skylar Short - Last Filed: 01/20/17 12:56> - Past Medical History Anemia: No Asthma: No Cancer: No Cardiac Disorders: No CVA: No COPD: No CHF: No Dementia: No Diabetes: Yes (NO MEDS) GI Disorders: No Disorders: No HTN: Yes Hypercholesterolemia: No Liver Disease: Yes Seizures: No Thyroid Disease: No Other medical history: former alcohol abuse - Surgical History Abdominal Surgery: No Appendectomy: No Cardiac Surgery: No Cholecystectomy: No Lung Surgery: No Neurologic Surgery: No - Psycho/Social/Smoking Cessation Hx Anxiety: No Suicidal Ideation: No Smoking History: Never smoked Have you smoked in the past 12 months: No If you are a former smoker, when did you quit?: 25 years ago Information on smoking cessation initiated: No Hx Alcohol Use: Yes (former) Drug/Substance Use Hx: No Substance Use Type: None <Santana Tapia - Last Filed: 01/20/17 14:28> - Past Medical History Allergies/Adverse Reactions: Allergies Allergy/AdvReac Type Severity Reaction Status Date / Time No Known Allergies Allergy Verified 01/20/17 11:06 Home Medications: Ambulatory Orders Nadolol [Corgard -] 40 mg PO DAILY #14 tablet 10/30/16 Spironolactone [Aldactone -] 100 mg PO DAILY #14 tablet 10/30/16 Review of Systems - Review of Systems Constitutional: Yes: Weakness. No: Chills, Fever Respiratory: No: Cough, Shortness of Breath Cardiac (ROS): No: Chest Pain ABD/GI: Yes: See HPI : No: Dysuria, Frequency Neurological: No: Headache All Other Systems: Reviewed and Negative <Santana Tapia - Last Filed: 01/20/17 14:28> *Physical Exam - Vital Signs Last Vital Signs Temp Pulse Resp BP Pulse Ox 99 F 127 H 19 111/70 99 01/20/17 11:04 01/20/17 11:04 01/20/17 11:04 01/20/17 11:04 01/20/17 11:04 - Physical Exam Comments: 01/20/17 12:45 GENERAL: The patient is awake, alert, and fully oriented, in no acute distress. HEAD: Normal with no signs of trauma. EYES: +slight conjuctiva pallor. Pupils equal, round and reactive to light, extraocular movements intact, sclera anicteric. ENT: +Dry mucosa. Ears normal, nares patent, oropharynx clear without exudates. NECK: Normal range of motion, supple without lymphadenopathy, JVD, or masses. LUNGS: Breath sounds equal, clear to auscultation bilaterally. No wheeze/ crackles. HEART: +Tachycardia, normal S1 and S2 without murmur or rub. ABDOMEN: (+)Distended but soft with palpable fluid wave. Soft/nontender. BS wnl. No guarding or rebound. EXTREMITIES: Normal range of motion, no edema. No clubbing or cyanosis. No cords, erythema, or tenderness. NEUROLOGICAL: Cranial nerves II through XII grossly intact. Normal speech, normal gait. PSYCH: Normal mood, normal affect. SKIN: Warm, Dry, normal turgor, no rashes or lesions noted. <Skylar Short - Last Filed: 01/20/17 12:56> - Vital Signs Last Vital Signs Temp Pulse Resp BP Pulse Ox 99 F 127 H 19 111/70 99 01/20/17 11:04 01/20/17 11:04 01/20/17 11:04 01/20/17 11:04 01/20/17 11:04 <ReginaSantana - Last Filed: 01/20/17 14:28> Heart Score/ECG Review #1 01/20/17 12:57 Sinus tachycardia at 105 bpm Inferior Q waves in V3 and aVF Sinus in V5 No acute st changes <Skylar Short - Last Filed: 01/20/17 12:56> ED Treatment Course - LABORATORY CBC & Chemistry Diagram: 01/20/17 12:24 01/20/17 12:24 <Skylar Short - Last Filed: 01/20/17 12:56> - LABORATORY CBC & Chemistry Diagram: 01/20/17 12:24 01/20/17 12:24 <Santana Tapia - Last Filed: 01/20/17 14:28> Medical Decision Making - Critical Care Time Total Critical Care Time (minutes): 40 Critical Care Statement: The care of this patient involved high complexity decision making to prevent further life threatening deterioration of the patient 's condition and/or to evaluate & treat vital organ system(s) failure or risk of failure. - Medical Decision Making 01/20/17 12:32 56y/o M h/o etoh cirrhosis with known varices/ascites, also with bleeding antral ulcer in the past p/w 2 episodes of bloody vomit around 2am followed by 2 episodes of melena this morning. no abdominal pain but feeling light-headed, no syncope. no blood thinners, no etoh intake since last year. tachycardia to 120 at triage, 100 lying in stretcher. BP 110 systolic. slight conj pallor, dry mucosa s1s2 reg tachy, lungs clear + ascites but nontender/soft 56y/o M with painless likely brisk upper GI bleed, ? 2/2 varices v ulcer, subsequent melena. presents with tachycardia, stable BP at this time. No evidence of active severe bleeding. placed on monitor, iv access obtained, iv fluid resuscitation initiated labs and t+s ekg, cxr PPI, octreotide GI consult admit 01/20/17 14:06 Hgb 7.5, which is lower limit of patient's baseline. Will transfuse 1 unit PRBC for now. Chem wnl, elevated BUN suggestive of UGIB. Trop negative, EKG nonischemic with HR 105. BP remains stable, HR 105. no further bleeding. Will proceed with admission: Dr. 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 01/20/17 14:28 accepted for inpatient tele by JOSH Christine, admitting for Dr. Byrne <Santana Tapia - Last Filed: 01/20/17 14:28> *DC/Admit/Observation/Transfer - Attestations Scribe Attestion: 01/20/17 12:48 Documentation prepared by ELSA London, acting as medical leader for Santana Tapia MD. <Skylar Short - Last Filed: 01/20/17 12:56> - Discharge Dispostion Admit: Yes <Santana Tapia - Last Filed: 01/20/17 14:28> Diagnosis at time of Disposition: Upper GI bleed Esophageal varices with bleeding Qualifiers: Esophageal varices type: unspecified type Qualified Code(s): I85.01 - Esophageal varices with bleeding - Discharge Dispostion Condition at time of disposition: Guarded
[2017-01-20] MEDS ORDERED: PANTOPRAZOLE SODIUM 200 ML IVPB ONE (12:34)
[2017-01-20 12:54] LABS: BASOPHIL 0.1 % (0-2.0); EOSINOPHIL 0.1 % (0-4.5); MCH 22.4 pg (25.7-33.7); MCHC 31.6 g/dl (32.0-35.9); MEAN CELL VOLUME 70.9 fl (80-96); MEAN PLT VOLUME 8.4 fl (7.5-11.1); NEUTROPHILS 83.1 % (42.8-82.8); PLATELET COUNT 197 K/MM3 (134-434); RDW 20.5 % (11.9-15.9); WHITE BLOOD COUNT 9.4 K/mm3 (4.0-10.0)
[2017-01-20] MEDS ORDERED: OCTREOTIDE ACETATE 100 MCG/1 ML ONE (13:06)
[2017-01-20 13:37] LABS: CPK 40 IU/L (39-308); TROPONIN I < 0.02 ng/ml (0.00-0.05)
[2017-01-20 13:41] LABS: GLUCOSE,RANDOM 210 mg/dL (74-106)
[2017-01-20 13:42] LABS: ANION GAP 9 (8-16); CALCIUM 7.9 mg/dL (8.5-10.1); CO2 24 mmol/L (21-32); CREATININE 0.8 mg/dL (0.7-1.3); TOT PROT 7.1 g/dl (6.4-8.2)
[2017-01-20 13:43] LABS: ALBUMIN 2.3 g/dl (3.4-5.0); ALK PHOS 246 U/L (45-117); BILIRUBIN,TOTAL 0.9 mg/dL (0.2-1.0); SGOT/AST 28 U/L (15-37); SGPT/ALT 25 U/L (12-78)
--- NOTE | 2017-01-20 14:40 | HP ---
CHIEF COMPLAINT: Vomited dark black/brown blood this morning several times. PCP: Seen at [facility] HISTORY OF PRESENT ILLNESS: 56 year-old male with a PMH significant for HTN, cirrhosis with ascites and esophageal varices, hepatocellular carcinoma, peptic ulcer disease, and Type II diabetes. Presented earlier today to the ED complaining of several episodes vomiting dark brown/black fluid around 2am. This was followed later in the morning by several small bowel movements which he describes to this provider as brown, not black. Last drink March 2016. ER course was notable for: (1) Hgb 7.5; BUN 42, Cr 0.8 (2) transfused 1U PRBC; Lasix IVP 20mg x 1 (3) Protonix IVPB 80mg x 1 (4) Octreotide 50mcg IVP x 1 Recent Travel: No PAST MEDICAL HISTORY: Alcoholic cirrhosis Hepatoma Ascites Bleeding antral ulcer Esophageal varices PAST SURGICAL HISTORY: None reported Social History: Smoking: No Alcohol: last drink Mar 2016 Drugs: no Family History: non-contributory Allergies No Known Allergies Allergy (Verified 01/20/17 11:06) HOME MEDICATIONS: Home Medications Medication Instructions Recorded Nadolol [Corgard -] 40 mg PO DAILY #14 tablet 10/30/16 Spironolactone [Aldactone -] 100 mg PO DAILY #14 tablet 10/30/16 REVIEW OF SYSTEMS CONSTITUTIONAL: Absent: fever, chills, diaphoresis, generalized weakness, malaise, loss of appetite, weight change HEENT: Absent: rhinorrhea, nasal congestion, throat pain, throat swelling, difficulty swallowing, mouth swelling, ear pain, eye pain, visual changes CARDIOVASCULAR: Absent: chest pain, syncope, palpitations, irregular heart rate, lightheadedness , peripheral edema RESPIRATORY: Absent: cough, shortness of breath, dyspnea with exertion, orthopnea, wheezing, stridor, hemoptysis GASTROINTESTINAL: Present: vomting x 2 coffee ground emesis Absent: abdominal pain, abdominal distension, nausea, vomiting, diarrhea, constipation, melena, hematochezia GENITOURINARY: Absent: dysuria, frequency, urgency, hesitancy, hematuria, flank pain, genital pain MUSCULOSKELETAL: Absent: myalgia, arthralgia, joint swelling, back pain, neck pain SKIN: Absent: rash, itching, pallor HEMATOLOGIC/IMMUNOLOGIC: Absent: easy bleeding, easy bruising, lymphadenopathy, frequent infections ENDOCRINE: Absent: unexplained weight gain, unexplained weight loss, heat intolerance, cold intolerance NEUROLOGIC: Absent: headache, focal weakness or paresthesias, dizziness, unsteady gait, seizure, mental status changes, bladder or bowel incontinence PSYCHIATRIC: Absent: anxiety, depression, suicidal or homicidal ideation, hallucinations. PHYSICAL EXAMINATION Vital Signs - 24 hr 01/20/17 01/20/17 11:04 11:44 Temperature 99 F Pulse Rate 127 H Pulse Rate [ 118 H Right Radial] Respiratory 19 18 Rate Blood Pressure 111/70 Blood Pressure 110/76 [Left Arm] O2 Sat by Pulse 99 99 Oximetry (%) GENERAL: Awake, alert, and fully oriented, in no acute distress. HEAD: Normal with no signs of trauma. EYES: Pupils equal, round and reactive to light, extraocular movements intact, sclera anicteric, conjunctiva clear. No ptosis EARS, NOSE, THROAT: Ears normal, nares patent, oropharynx clear without exudates. Moist mucous membranes. NECK: Normal range of motion, supple without lymphadenopathy, JVD, or masses. LUNGS: Breath sounds equal, clear to auscultation bilaterally. No wheezes, and no crackles. No accessory muscle use. HEART: Regular rate and rhythm, normal S1 and S2 without murmur, rub or gallop. ABDOMEN: Soft, nontender, mildly distended, shifting dullness, fluid wave; normoactive bowel sounds, no guarding, no rebound, no masses. MUSCULOSKELETAL: Normal range of motion at all joints. No bony deformities or tenderness. No CVA tenderness. UPPER EXTREMITIES: 2+ pulses, warm, well-perfused. No cyanosis. No clubbing. No peripheral edema. LOWER EXTREMITIES: 2+ pulses, warm, well-perfused. No calf tenderness. No peripheral edema. NEUROLOGICAL: Cranial nerves II-XII intact. Normal speech. Laboratory Results - last 24 hr 01/20/17 01/20/17 01/20/17 12:24 12:24 12:24 WBC 9.4 D RBC 3.35 L Hgb 7.5 L Hct 23.7 L MCV 70.9 L MCH 22.4 L MCHC 31.6 L RDW 20.5 H Plt Count 197 D MPV 8.4 Neutrophils % 83.1 H D Lymphocytes % 9.6 D Monocytes % 7.1 Eosinophils % 0.1 D Basophils % 0.1 PTT (Actin FS) 34.6 H Sodium Potassium Chloride Carbon Dioxide Anion Gap BUN Creatinine Creat Clearance w eGFR Random Glucose Calcium Total Bilirubin AST ALT Alkaline Phosphatase Creatine Kinase 40 Troponin I < 0.02 Total Protein Albumin Blood Type Antibody Screen Crossmatch 01/20/17 01/20/17 12:24 12:24 WBC RBC Hgb Hct MCV MCH MCHC RDW Plt Count MPV Neutrophils % Lymphocytes % Monocytes % Eosinophils % Basophils % PTT (Actin FS) Sodium 137 Potassium 5.1 D Chloride 104 Carbon Dioxide 24 Anion Gap 9 BUN 42 H D Creatinine 0.8 D Creat Clearance w eGFR > 60 Random Glucose 210 H D Calcium 7.9 L Total Bilirubin 0.9 AST 28 ALT 25 D Alkaline Phosphatase 246 H D Creatine Kinase Troponin I Total Protein 7.1 Albumin 2.3 L Blood Type O POSITIVE Antibody Screen Negative Crossmatch See Detail ASSESSMENT/PLAN 56 year-old male with a PMH significant for HTN, alcoholic cirrhosis, hepatoma, ascites s/p paracentesis, bleeding antral ulcer, and esophageal varices. Admitted for upper GI bleed. Upper GI bleed Peptic ulcer disease Esophageal varices --no further episodes of coffee-ground emesis since arrival --Hgb 7.5, transfused 1U PRBC, repeat cbc pending --NPO --IV fluids --continue Nadolol, spironolactone --Protonix IVPB --GI consult requested Hepatocellular carcinoma --mild ascites on exam --last known paracentesis was on 12/30/16 Hypertension --on no medications Alcoholic cirrhosis --Alk phos 246 which is this patient's baseline Fluids: D51/2NS @ 75mL/hr Electrolytes: replete as indicated Nutrition: NPO DVT prophylaxis: hold chemical prophylaxis due to bleeding issues; SCDs; oob, ambulation Dispo: requires inpatient care. Full Code. Visit type - Emergency Visit Emergency Visit: Yes ED Registration Date: 01/20/17 Care time: The patient presented to the Emergency Department on the above date and was hospitalized for further evaluation of their emergent condition. - New Patient This patient is new to me today: Yes Date on this admission: 01/20/17 - Critical Care Critical Care patient: No
[2017-01-20] MEDS ORDERED: FUROSEMIDE 40 MG/4 ML INJECTABLE VIAL IVPUSH ONE (14:44)
[2017-01-20] MEDS ORDERED: DEXTROSE 5%-0.45% SALINE 1,000 ML IV SCH ×2 (14:45→22:31)
[2017-01-20 16:09] LABS: URINE APPEARANCE CLEAR; URINE BILIRUBIN NEGATIVE (NEGATIVE); URINE BLOOD NEGATIVE (NEGATIVE); URINE COLOR YELLOW; URINE GLUCOSE (UA) NEGATIVE (NEGATIVE); URINE KETONE TRACE (NEGATIVE); URINE NITRITE NEGATIVE (NEGATIVE); URINE PROTEIN NEGATIVE (NEGATIVE); URINE UROBILINOGEN NEGATIVE mg/dL (0.2-1.0)
[2017-01-20] MEDS ORDERED: FUROSEMIDE 40 MG/4 ML INJECTABLE VIAL ONE (17:23)
[2017-01-20 20:40] LABS: BASOPHIL 0.4 % (0-2.0); EOSINOPHIL 0.5 % (0-4.5); MCH 23.5 pg (25.7-33.7); MCHC 32.6 g/dl (32.0-35.9); MEAN CELL VOLUME 72.3 fl (80-96); MEAN PLT VOLUME 8.3 fl (7.5-11.1); NEUTROPHILS 77.9 % (42.8-82.8); PLATELET COUNT 125 K/MM3 (134-434); RDW 20.5 % (11.9-15.9); WHITE BLOOD COUNT 8.2 K/mm3 (4.0-10.0)
[2017-01-20] MEDS ORDERED: OCTREOTIDE ACETATE 1,200 MCG in DEXTROSE 5%-WATER - 488 ML IVPB SCH (21:15)
[2017-01-20] MEDS ORDERED: PANTOPRAZOLE SODIUM 80 MG in SODIUM CHLORIDE 100 ML IVPB SCH (21:15)
--- NOTE | 2017-01-20 22:19 | HOSP ---
Subjective - Review of Symptoms Events since last encounter: repeat CBC after 1u PRBC dropped from 7.5 to 6.7. Subjective: Pt reports feeling "better". Pt denies any further coffee ground emesis but does report 1 BM in ed with "moderate" amount of blood. Reports dizziness when walking. Denies abdominal pain. Cardiovascular: No: Chest Pain, Palpitations Gastrointestinal: Yes: Melena. No: Nausea Musculoskeletal: No: No Symptoms Physical Examination Vital Signs: Vital Signs Temperature 99 F 01/20/17 18:05 Pulse Rate 95 H 01/20/17 18:05 Respiratory Rate 20 01/20/17 18:05 Blood Pressure 110/72 01/20/17 18:05 O2 Sat by Pulse Oximetry (%) 100 01/20/17 18:05 Orthostatics: 9PM laying 109/66 P 95 sitting 109/71 P107 standing 102/70 P114 Constitutional: Yes: No Distress, Calm Cardiovascular: Yes: Regular Rate and Rhythm. No: Murmur, Rub Respiratory: Yes: CTA Bilaterally Gastrointestinal: Yes: Normal Bowel Sounds, Soft, Other (+ fluid wave present) Labs: CBC, BMP 01/20/17 20:20 Hospitalist Encounter Assessment: GI bleed - H/H drop after receiving blood - will give 2 more units - start octreotide and protonix drip - transfer to ICU. Critical Care Total Critical Care Time (in minutes): 35 Critical Care Statement: The care of this patient involved high complexity decision making to prevent further life threatening deterioration of the patient 's condition and/or to evaluate & treat vital organ system(s) failure or risk of failure.
--- NOTE | 2017-01-21 00:10 | CONSULT ---
Consult Consult Specialty:: Pulmonary Critical Care Medicine - History of Present Illness Chief Complaint: GI Bleed History of Present Illness: Mr. Valero is a 56 y.o man with known history of cirrhosis with ascites, esophageal varicies, HCC, PUD and HTN who presented to the ED today after several episodes of bloody emesis, followed by 1 episode of melena in the ED. In the Ed, he was transfused 1 unit PRBC for HgB 7.5; given protonix and octreotide and transferred to floor. His repeat CBC was concerning for a post transfusion HgB drop to 6.7. He was hemodynamically stable however given history and poor response to transfusion, pt. transferred to ICU for further care. He was started on protonix and octreotide drips; pending 2 unit PRBC transfusion. In the ICU, Mr. Valero is awake, alert and oriented with minimal complaints. He reports his last episode of emesis was yesterday and last episode of bloody stool was this AM. He denies drinking any alcohol for past 8 months. His HR is NSR 88, 132/72, RR 19, O2 sat 100%. He is in no acute distress. The first of 2 units PRBC is transfusing now. - History Source History Provided By: Patient, Medical Record Limitations to Obtaining History: Language Barrier - Past Medical History Cardio/Vascular: Yes: HTN Gastrointestinal: Yes: Esophageal Varices, Peptic Ulcer Disease Hepatobiliary: Yes: Cirrhosis, Other (esophageal varices, hepatocellular carcinoma) Renal/: Yes: Other (? 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year[place] 1989 History of Recent Travel: No Home Medications - Allergies Allergies/Adverse Reactions: Allergies Allergy/AdvReac Type Severity Reaction Status Date / Time No Known Allergies Allergy Verified 01/20/17 11:06 - Home Medications Home Medications: Ambulatory Orders Nadolol [Corgard -] 40 mg PO DAILY #14 tablet 10/30/16 Spironolactone [Aldactone -] 100 mg PO DAILY #14 tablet 10/30/16 Family Disease History - Family Disease History Family Disease History: Heart Disease: Father, Mother (in her 40s) Review of Systems - Review of Systems Constitutional: reports: No Symptoms Eyes: reports: No Symptoms HENT: reports: No Symptoms Neck: reports: No Symptoms Cardiovascular: reports: No Symptoms Respiratory: reports: Cough Gastrointestinal: reports: Bloating, Rectal Bleeding, Vomiting Blood Genitourinary: reports: No Symptoms Musculoskeletal: reports: No Symptoms Integumentary: reports: Blister (Across back) Neurological: reports: No Symptoms Endocrine: reports: No Symptoms Hematology/Lymphatic: reports: No Symptoms Psychiatric: reports: No Symptoms Physical Exam Vital Signs: Vital Signs Temperature 99.0 F 01/20/17 22:43 Pulse Rate 86 01/20/17 22:43 Respiratory Rate 15 01/20/17 22:47 Blood Pressure 132/77 01/20/17 22:43 O2 Sat by Pulse Oximetry (%) 100 01/20/17 22:47 Constitutional: Yes: Well Nourished, Calm Eyes: Yes: WNL, Conjunctiva Clear HENT: Yes: WNL Neck: Yes: WNL Cardiovascular: Yes: Regular Rate and Rhythm Respiratory: Yes: Regular, CTA Bilaterally Gastrointestinal: Yes: Normal Bowel Sounds, Soft, Ascites ...Rectal Exam: Yes: Deferred Renal/: Yes: WNL Musculoskeletal: Yes: Muscle Weakness Extremities: Yes: WNL Edema: No Peripheral Pulses WNL: Yes Integumentary: Yes: WNL Wound/Incision: Yes: Other (Healed rash ?zoster from spine around right flank, no open areas) Neurological: Yes: Alert, Oriented Labs: CBC, BMP 01/20/17 20:20 CBCD WBC 8.2 K/mm3 (4.0-10.0) 01/20/17 20:20 RBC 2.86 M/mm3 (4.00-5.60) L 01/20/17 20:20 Hgb 6.7 GM/dL (11.7-16.9) L* D 01/20/17 20:20 Hct 20.7 % (35.4-49) L 01/20/17 20:20 MCV 72.3 fl (80-96) L 01/20/17 20:20 MCHC 32.6 g/dl (32.0-35.9) 01/20/17 20:20 RDW 20.5 % (11.9-15.9) H 01/20/17 20:20 Plt Count 125 K/MM3 (134-434) L D 01/20/17 20:20 MPV 8.3 fl (7.5-11.1) 01/20/17 20:20 CMP Sodium 137 mmol/L (136-145) 01/20/17 12:24 Potassium 5.1 mmol/L (3.5-5.1) D 01/20/17 12:24 Chloride 104 mmol/L (98-107) 01/20/17 12:24 Carbon Dioxide 24 mmol/L (21-32) 01/20/17 12:24 Anion Gap 9 (8-16) 01/20/17 12:24 BUN 42 mg/dL (7-18) H D 01/20/17 12:24 Creatinine 0.8 mg/dL (0.7-1.3) D 01/20/17 12:24 Creat Clearance w eGFR > 60 (>60) 01/20/17 12:24 Calcium 7.9 mg/dL (8.5-10.1) L 01/20/17 12:24 Total Bilirubin 0.9 mg/dL (0.2-1.0) 01/20/17 12:24 AST 28 U/L (15-37) 01/20/17 12:24 ALT 25 U/L (12-78) D 01/20/17 12:24 Alkaline Phosphatase 246 U/L (45-117) H D 01/20/17 12:24 Total Protein 7.1 g/dl (6.4-8.2) 01/20/17 12:24 Albumin 2.3 g/dl (3.4-5.0) L 01/20/17 12:24 Imaging - Results Chest X-ray: Report Reviewed, Image Reviewed Problem List - Problems (1) Anemia Code(s): D64.9 - ANEMIA, UNSPECIFIED Qualifiers: Iron deficiency anemia type: chronic blood loss (2) Upper GI bleed Code(s): K92.2 - GASTROINTESTINAL HEMORRHAGE, UNSPECIFIED (3) Cirrhosis Code(s): K74.60 - UNSPECIFIED CIRRHOSIS OF LIVER Qualifiers: Hepatic cirrhosis type: alcoholic cirrhosis (4) Esophageal varices Code(s): I85.00 - ESOPHAGEAL VARICES WITHOUT BLEEDING Qualifiers: Esophageal varices bleeding: with bleeding Assessment/Plan Mr. Valero is a 56 y.o man with history of ETOH cirrhosis, esophageal varicies, HCC, HTN and diabetes who was admitted for active GIB with continued HgB drift despite transfusion. GI: cirrhosis, active GI Bleed, HCC -NPO -GI consult in AM; low threshold to call in if briskly bleeding with hemodynamic instability -serial CBC, coags -transfuse for HgB <7 -continue octreotide drip -continue protonix drip -check LFT's in AM -check urine tox, ETOH levels -consider hepatitis serologies -consider abd ultrasound with doppler eval ascites and r/o portal vein thrombosis -2 large bore PIV's at all times -low threshold for cordis -fingersticks -follow LFT's -consider diagnostic paracentesis Heme: active GIB in cirrhotic pt. with known history of esophageal varicies -serial CBC, coags -transfuse for HgB <7 or failure to rise appropriately post transfusion -stat PT/INR (no INR today), transfuse for INR >2 -transfuse platelets <50 CV: hx HTN, now with active GIB. Elevated lactate in setting of hypovolemia -hold HTN meds for now -check EKG -low threshold for central access -follow lactate Renal: elevated BUN with stable creatinine; c/f possible BRIANNE in setting of hypovolemia -strict I/O's, consider aguilar -follow creatinine, electrolytes -avoid nephrotoxic agents Jeane Lopez, ACNP
[2017-01-21 03:02] LABS: MCH 23.9 pg (25.7-33.7); MCHC 32.7 g/dl (32.0-35.9); MEAN CELL VOLUME 73.1 fl (80-96); MEAN PLT VOLUME 8.6 fl (7.5-11.1); PLATELET COUNT 112 K/MM3 (134-434); RDW 20.9 % (11.9-15.9); WHITE BLOOD COUNT 6.2 K/mm3 (4.0-10.0)
[2017-01-21 03:14] LABS: URINE MARIJUANA THC NEGATIVE ng/ml (CUTOFF=50)
[2017-01-21 03:21] LABS: INR 1.43 (0.82-1.09); PROTHROMBIN TIME (PATIENT) 15.9 SEC (9.98-11.88)
[2017-01-21 04:46] LABS: ANISOCYTOSIS 2+; HYPOCHROMIA 2+; PLATELET ESTIMATE SLT DECREASED (NORMAL); POLYCHROMASIA 1+
[2017-01-21 04:47] LABS: MICROCYTOSIS 1+
[2017-01-21] MEDS: PANTOPRAZOLE SODIUM 80 MG in SODIUM CHLORIDE 100 ML IVPB SCH ×2 (07:35→17:29)
[2017-01-21 08:26] LABS: BASOPHIL 0.3 % (0-2.0); EOSINOPHIL 2.3 % (0-4.5); MCH 24.8 pg (25.7-33.7); MCHC 33.4 g/dl (32.0-35.9); MEAN CELL VOLUME 74.4 fl (80-96); MEAN PLT VOLUME 8.5 fl (7.5-11.1); PLATELET COUNT 96 K/MM3 (134-434); RDW 19.2 % (11.9-15.9)
[2017-01-21 08:45] LABS: ANION GAP 8 (8-16); CALCIUM 7.6 mg/dL (8.5-10.1); CO2 24 mmol/L (21-32); CREATININE 0.9 mg/dL (0.7-1.3); GLUCOSE,RANDOM 140 mg/dL (74-106); MAGNESIUM 1.8 mg/dL (1.8-2.4); PHOSPHOROUS 3.2 mg/dL (2.5-4.9)
[2017-01-21 08:46] LABS: BILIRUBIN,DIRECT 0.5 mg/dL (0.0-0.2); BILIRUBIN,TOTAL 1.3 mg/dL (0.2-1.0); TOT PROT 5.9 g/dl (6.4-8.2)
[2017-01-21] MEDS ORDERED: DEXTROSE 5%-0.45% SALINE 1,000 ML IV SCH (09:08)
[2017-01-21] MEDS ORDERED: PT OWN MED DRAWER 7, Y5N ONE ×2 (09:22→10:45)
[2017-01-21] MEDS ORDERED: CEFTRIAXONE 50 ML IVPB ONE (09:45)
[2017-01-21] MEDS ORDERED: PANTOPRAZOLE SODIUM 100 ML IVPB SCH (10:00)
[2017-01-21] MEDS ORDERED: NADOLOL 40 MG TABLET (FP) PO SCH (10:00)
[2017-01-21] MEDS ORDERED: SPIRONOLACTONE 25 MG TABLET (FP) PO SCH ×2 (10:00)
[2017-01-21] MEDS: NADOLOL 40 MG TABLET (FP) PO SCH (10:50)
--- NOTE | 2017-01-21 11:09 | EKG ---
Test Reason : Blood Pressure : / mmHG Vent. Rate : 105 BPM Atrial Rate : 105 BPM P-R Int : 160 ms QRS Dur : 076 ms QT Int : 374 ms P-R-T Axes : 041 019 018 degrees QTc Int : 494 ms SINUS TACHYCARDIA INFERIOR INFARCT , AGE UNDETERMINED ABNORMAL ECG WHEN COMPARED WITH ECG OF 13-OCT-2016 12:14, INFERIOR INFARCT IS NOW PRESENT Confirmed by JENNIFER KAUFFMAN MD ([id number]) on 01/21/2017 11:08:47 AM Referred By: Confirmed By:JENNIFER KAUFFMAN MD
--- NOTE | 2017-01-21 11:45 | PN ---
Physical Exam: SUBJECTIVE: Patient seen and examined at bedside in ICU. Voices no complaints. Being transfused 4th unit PRBC. RN advises he passed urine that was pink-tinged with tiny clots. OBJECTIVE: Vital Signs Period Temp Pulse Resp BP Sys/Nicole Pulse Ox Last 24 Hr 98.3 F-99.2 F 69-101 15-20 89-132/56-84 99-100 GENERAL: The patient is awake, alert, and fully oriented, in no acute distress. HEAD: Normal with no signs of trauma. EYES: PERRL, extraocular movements intact, sclera anicteric, conjunctiva clear. No ptosis. LUNGS: Breath sounds equal, clear to auscultation bilaterally, no wheezes, no crackles, no accessory muscle use. HEART: Regular rate and rhythm, S1, S2 without murmur, rub or gallop. ABDOMEN: Distended, not tense, dull to percussion, normoactive bowel sounds, no guarding, no rebound EXTREMITIES: 2+ pulses, warm, well-perfused, no edema. NEUROLOGICAL: Cranial nerves II through XII grossly intact. Normal speech, gait not observed. Laboratory Results - last 24 hr 01/20/17 01/20/17 01/20/17 15:17 20:20 21:15 WBC 8.2 RBC 2.86 L Hgb 6.7 L* D Hct 20.7 L MCV 72.3 L MCH 23.5 L MCHC 32.6 RDW 20.5 H Plt Count 125 L D MPV 8.3 Neutrophils % 77.9 Lymphocytes % 10.8 Monocytes % 10.4 H Eosinophils % 0.5 D Basophils % 0.4 D Hypochromia Platelet Estimate Polychromasia Anisocytosis Microcytosis INR Sodium Potassium Chloride Carbon Dioxide Anion Gap BUN Creatinine Random Glucose Lactic Acid 2.4 H* Calcium Phosphorus Magnesium Total Bilirubin Direct Bilirubin AST ALT Alkaline Phosphatase Total Protein Albumin Urine Color Yellow Urine Appearance Clear Urine pH 5.0 Ur Specific [place] 1.020 Urine Protein Negative Urine Glucose (UA) Negative Urine Ketones Trace H Urine Blood Negative Urine Nitrite Negative Urine Bilirubin Negative Urine Urobilinogen Negative Opiates Screen Methadone Screen Barbiturate Screen Phencyclidine Screen Ur Amphetamines Screen MDMA (Ecstasy) Screen Benzodiazepines Screen Cocaine Screen U Marijuana (THC) Screen Alcohol, Quantitative 01/21/17 01/21/17 01/21/17 01:00 02:40 02:40 WBC RBC Hgb Hct MCV MCH MCHC RDW Plt Count MPV Neutrophils % Lymphocytes % Monocytes % Eosinophils % Basophils % Hypochromia Platelet Estimate Polychromasia Anisocytosis Microcytosis INR 1.43 H Sodium Potassium Chloride Carbon Dioxide Anion Gap BUN Creatinine Random Glucose Lactic Acid Calcium Phosphorus Magnesium Total Bilirubin Direct Bilirubin AST ALT Alkaline Phosphatase Total Protein Albumin Urine Color Urine Appearance Urine pH Ur Specific [place] Urine Protein Urine Glucose (UA) Urine Ketones Urine Blood Urine Nitrite Urine Bilirubin Urine Urobilinogen Opiates Screen Negative Methadone Screen Negative Barbiturate Screen Negative Phencyclidine Screen Negative Ur Amphetamines Screen Negative MDMA (Ecstasy) Screen Negative Benzodiazepines Screen Negative Cocaine Screen Negative U Marijuana (THC) Screen Negative Alcohol, Quantitative < 5.0 01/21/17 01/21/17 01/21/17 02:41 07:55 07:55 WBC 6.2 6.0 RBC 2.84 L 3.02 L Hgb 6.8 L* 7.5 L D Hct 20.8 L 22.4 L MCV 73.1 L 74.4 L MCH 23.9 L 24.8 L MCHC 32.7 33.4 RDW 20.9 H 19.2 H Plt Count 112 L 96 L MPV 8.6 8.5 Neutrophils % 69.0 Lymphocytes % 16.7 D Monocytes % 11.7 H Eosinophils % 2.3 D Basophils % 0.3 Hypochromia 2+ Platelet Estimate Slt decreased Polychromasia 1+ Anisocytosis 2+ Microcytosis 1+ INR Sodium 139 Potassium 4.0 D Chloride 107 Carbon Dioxide 24 Anion Gap 8 BUN 35 H Creatinine 0.9 Random Glucose 140 H D Lactic Acid Calcium 7.6 L Phosphorus 3.2 Magnesium 1.8 Total Bilirubin Direct Bilirubin AST ALT Alkaline Phosphatase Total Protein Albumin Urine Color Urine Appearance Urine pH Ur Specific [place] Urine Protein Urine Glucose (UA) Urine Ketones Urine Blood Urine Nitrite Urine Bilirubin Urine Urobilinogen Opiates Screen Methadone Screen Barbiturate Screen Phencyclidine Screen Ur Amphetamines Screen MDMA (Ecstasy) Screen Benzodiazepines Screen Cocaine Screen U Marijuana (THC) Screen Alcohol, Quantitative 01/21/17 01/21/17 07:55 07:55 WBC RBC Hgb Hct MCV MCH MCHC RDW Plt Count MPV Neutrophils % Lymphocytes % Monocytes % Eosinophils % Basophils % Hypochromia Platelet Estimate Polychromasia Anisocytosis Microcytosis INR Sodium Potassium Chloride Carbon Dioxide Anion Gap BUN Creatinine Random Glucose Lactic Acid 3.1 H* Calcium Phosphorus Magnesium Total Bilirubin 1.3 H D Direct Bilirubin 0.5 H AST 24 ALT 20 Alkaline Phosphatase 187 H D Total Protein 5.9 L Albumin 2.0 L Urine Color Urine Appearance Urine pH Ur Specific [place] Urine Protein Urine Glucose (UA) Urine Ketones Urine Blood Urine Nitrite Urine Bilirubin Urine Urobilinogen Opiates Screen Methadone Screen Barbiturate Screen Phencyclidine Screen Ur Amphetamines Screen MDMA (Ecstasy) Screen Benzodiazepines Screen Cocaine Screen U Marijuana (THC) Screen Alcohol, Quantitative Active Medications Generic Name Dose Route Start Last Admin Trade Name Freq PRN Reason Stop Dose Admin Pantoprazole Sodium 80 mg/ 100 mls @ 10 mls/hr 01/21/17 07:15 01/21/17 07:35 Sodium Chloride IVPB 10 mls/hr Q10H VALERIA Administration 8 MG/HR Octreotide Acetate 1,200 mcg/ 500 mls @ 20.83 mls/hr 01/21/17 21:15 Dextrose IVPB Q24H VALERIA Protocol 50 MCG/HR Dextrose/Sodium Chloride 1,000 mls @ 125 mls/hr 01/21/17 09:08 01/21/17 09:31 D5-1/2ns - IV 125 mls/hr ASDIR VALERIA Administration Nadolol 40 mg 01/21/17 10:00 01/21/17 10:50 Corgard - PO 40 mg DAILY VALERIA Administration Spironolactone 100 mg 01/21/17 10:00 01/21/17 09:35 Aldactone - PO 100 mg DAILY VALERIA Administration ASSESSMENT/PLAN ASSESSMENT/PLAN 56 year-old male with a PMH significant for HTN, alcoholic cirrhosis, hepatoma, ascites s/p paracentesis, bleeding antral ulcer, and esophageal varices. Admitted for upper GI bleed. Upper GI bleed Peptic ulcer disease Esophageal varices --was transfused 1U in ED but Hct dropped after transfusion to 6.7; transfused 2 U overnight and Hgb-->7.5, 4th unit transfused this morning; repeat cbc at 2:00pm --NPO --IV fluids --continue Nadolol, spironolactone --Protonix drip --Octreotide drip --occult stool pending --GI following, EGD tomorrow Hepatocellular carcinoma Cirrhosis --mild ascites on exam --last paracentesis was on 12/30/16 at [facility], 8.6L Hematuria --repeat UA Hypertension --on no medications Fluids: D51/2NS @ 125mL/hr Electrolytes: replete as indicated Nutrition: NPO DVT prophylaxis: hold chemical prophylaxis due to bleeding issues; SCDs; oob, ambulation Dispo: requires inpatient care. Full Code. Visit type - Emergency Visit Emergency Visit: Yes ED Registration Date: 01/20/17 Care time: The patient presented to the Emergency Department on the above date and was hospitalized for further evaluation of their emergent condition. - New Patient This patient is new to me today: No - Critical Care Critical Care patient: Yes Total Critical Care Time (in minutes): 35 Critical Care Statement: The care of this patient involved high complexity decision making to prevent further life threatening deterioration of the patient 's condition and/or to evaluate & treat vital organ system(s) failure or risk of failure.
--- NOTE | 2017-01-21 13:59 | PN ---
Physical Exam: SUBJECTIVE: Patient seen and examined. OBJECTIVE: Vital Signs Period Temp Pulse Resp BP Sys/Nicole Pulse Ox Last 24 Hr 98.3 F-99.2 F 60-101 15-20 89-132/56-84 99-100 GENERAL: The patient is awake, alert, and fully oriented, in no acute distress.Feels less weak than yesterday HEAD: Normal with no signs of trauma. EYES: PERRL, extraocular movements intact, sclera anicteric, conjunctiva clear. No ptosis. NECK: Trachea midline, full range of motion, supple. LUNGS: Breath sounds equal, clear to auscultation bilaterally, no wheezes, no crackles, no accessory muscle use. HEART: Regular rate and rhythm, S1, S2 without murmur, rub or gallop. ABDOMEN: distended,nontender, hypoactive bowel sounds, no guarding, no rebound, hepatomegaly difficult to asses to du ascites EXTREMITIES: 2+ pulses, warm, well-perfused, no edema. PSYCH: Normal mood, normal affect. Laboratory Results - last 24 hr 01/20/17 01/20/17 01/20/17 15:17 20:20 21:15 WBC 8.2 RBC 2.86 L Hgb 6.7 L* D Hct 20.7 L MCV 72.3 L MCH 23.5 L MCHC 32.6 RDW 20.5 H Plt Count 125 L D MPV 8.3 Neutrophils % 77.9 Lymphocytes % 10.8 Monocytes % 10.4 H Eosinophils % 0.5 D Basophils % 0.4 D Hypochromia Platelet Estimate Polychromasia Anisocytosis Microcytosis INR Sodium Potassium Chloride Carbon Dioxide Anion Gap BUN Creatinine Random Glucose Lactic Acid 2.4 H* Calcium Phosphorus Magnesium Total Bilirubin Direct Bilirubin AST ALT Alkaline Phosphatase Total Protein Albumin Urine Color Yellow Urine Appearance Clear Urine pH 5.0 Ur Specific [place] 1.020 Urine Protein Negative Urine Glucose (UA) Negative Urine Ketones Trace H Urine Blood Negative Urine Nitrite Negative Urine Bilirubin Negative Urine Urobilinogen Negative Opiates Screen Methadone Screen Barbiturate Screen Phencyclidine Screen Ur Amphetamines Screen MDMA (Ecstasy) Screen Benzodiazepines Screen Cocaine Screen U Marijuana (THC) Screen Alcohol, Quantitative 01/21/17 01/21/17 01/21/17 01:00 02:40 02:40 WBC RBC Hgb Hct MCV MCH MCHC RDW Plt Count MPV Neutrophils % Lymphocytes % Monocytes % Eosinophils % Basophils % Hypochromia Platelet Estimate Polychromasia Anisocytosis Microcytosis INR 1.43 H Sodium Potassium Chloride Carbon Dioxide Anion Gap BUN Creatinine Random Glucose Lactic Acid Calcium Phosphorus Magnesium Total Bilirubin Direct Bilirubin AST ALT Alkaline Phosphatase Total Protein Albumin Urine Color Urine Appearance Urine pH Ur Specific [place] Urine Protein Urine Glucose (UA) Urine Ketones Urine Blood Urine Nitrite Urine Bilirubin Urine Urobilinogen Opiates Screen Negative Methadone Screen Negative Barbiturate Screen Negative Phencyclidine Screen Negative Ur Amphetamines Screen Negative MDMA (Ecstasy) Screen Negative Benzodiazepines Screen Negative Cocaine Screen Negative U Marijuana (THC) Screen Negative Alcohol, Quantitative < 5.0 01/21/17 01/21/17 01/21/17 02:41 07:55 07:55 WBC 6.2 6.0 RBC 2.84 L 3.02 L Hgb 6.8 L* 7.5 L D Hct 20.8 L 22.4 L MCV 73.1 L 74.4 L MCH 23.9 L 24.8 L MCHC 32.7 33.4 RDW 20.9 H 19.2 H Plt Count 112 L 96 L MPV 8.6 8.5 Neutrophils % 69.0 Lymphocytes % 16.7 D Monocytes % 11.7 H Eosinophils % 2.3 D Basophils % 0.3 Hypochromia 2+ Platelet Estimate Slt decreased Polychromasia 1+ Anisocytosis 2+ Microcytosis 1+ INR Sodium 139 Potassium 4.0 D Chloride 107 Carbon Dioxide 24 Anion Gap 8 BUN 35 H Creatinine 0.9 Random Glucose 140 H D Lactic Acid Calcium 7.6 L Phosphorus 3.2 Magnesium 1.8 Total Bilirubin Direct Bilirubin AST ALT Alkaline Phosphatase Total Protein Albumin Urine Color Urine Appearance Urine pH Ur Specific [place] Urine Protein Urine Glucose (UA) Urine Ketones Urine Blood Urine Nitrite Urine Bilirubin Urine Urobilinogen Opiates Screen Methadone Screen Barbiturate Screen Phencyclidine Screen Ur Amphetamines Screen MDMA (Ecstasy) Screen Benzodiazepines Screen Cocaine Screen U Marijuana (THC) Screen Alcohol, Quantitative 01/21/17 01/21/17 07:55 07:55 WBC RBC Hgb Hct MCV MCH MCHC RDW Plt Count MPV Neutrophils % Lymphocytes % Monocytes % Eosinophils % Basophils % Hypochromia Platelet Estimate Polychromasia Anisocytosis Microcytosis INR Sodium Potassium Chloride Carbon Dioxide Anion Gap BUN Creatinine Random Glucose Lactic Acid 3.1 H* Calcium Phosphorus Magnesium Total Bilirubin 1.3 H D Direct Bilirubin 0.5 H AST 24 ALT 20 Alkaline Phosphatase 187 H D Total Protein 5.9 L Albumin 2.0 L Urine Color Urine Appearance Urine pH Ur Specific [place] Urine Protein Urine Glucose (UA) Urine Ketones Urine Blood Urine Nitrite Urine Bilirubin Urine Urobilinogen Opiates Screen Methadone Screen Barbiturate Screen Phencyclidine Screen Ur Amphetamines Screen MDMA (Ecstasy) Screen Benzodiazepines Screen Cocaine Screen U Marijuana (THC) Screen Alcohol, Quantitative Active Medications Generic Name Dose Route Start Last Admin Trade Name Aaronq PRN Reason Stop Dose Admin Pantoprazole Sodium 80 mg/ 100 mls @ 10 mls/hr 01/21/17 07:15 01/21/17 07:35 Sodium Chloride IVPB 10 mls/hr Q10H VALERIA Administration 8 MG/HR Octreotide Acetate 1,200 mcg/ 500 mls @ 20.83 mls/hr 01/21/17 21:15 Dextrose IVPB Q24H VALERIA Protocol 50 MCG/HR Nadolol 40 mg 01/21/17 10:00 01/21/17 10:50 Corgard - PO 40 mg DAILY VALERIA Administration Spironolactone 100 mg 01/21/17 10:00 01/21/17 09:35 Aldactone - PO 100 mg DAILY VALERIA Administration ASSESSMENT/PLAN: 56 year-old male with a PMH significant for HTN, alcoholic cirrhosis, hepatoma, ascites s/p paracentesis, bleeding antral ulcer, and esophageal varices. Admitted for upper GI bleed. Transfered to ICU for decreasing hemoglobin 6.7 despite transfusion. 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 Hbc goal: 8.5 --NPO. To received endoscopy tomorrow in the AM per GI --IV fluids D5NS --continue Nadolol, spironolactone --Protonix drip --Octreotide drip --occult stool pending --GI following, EGD tomorrow Hepatocellular carcinoma Cirrhosis --mild ascites on exam --last paracentesis was on 12/30/16 at [facility], 8.6L -- Cirrosis and hepatomas confirmed on ultrasound this am. Hematuria --repeat UA - currently uncollected today Fluids: D51/2NS @ 125mL/hr Electrolytes: replete as indicated Nutrition: NPO Family and patient deny being aware of cirrhosis diagnosis. I had conversation with patient alone to update him. He said it was ok to let family know. DVT prophylaxis: hold chemical prophylaxis due to bleeding issues; SCDs; oob, ambulation Dispo: requires inpatient care. Full Code. Visit type - Emergency Visit Emergency Visit: No - New Patient This patient is new to me today: Yes Date on this admission: 01/21/17 - Critical Care Critical Care patient: Yes Total Critical Care Time (in minutes): 20
[2017-01-21 16:24] LABS: MCH 25.3 pg (25.7-33.7); MCHC 33.5 g/dl (32.0-35.9); MEAN CELL VOLUME 75.4 fl (80-96); MEAN PLT VOLUME 8.3 fl (7.5-11.1); PLATELET COUNT 100 K/MM3 (134-434); RDW 19.4 % (11.9-15.9); WHITE BLOOD COUNT 5.6 K/mm3 (4.0-10.0)
[2017-01-21 16:44] LABS: ALBUMIN 2.1 g/dl (3.4-5.0); BILIRUBIN,DIRECT 0.6 mg/dL (0.0-0.2); BILIRUBIN,TOTAL 1.8 mg/dL (0.2-1.0); TOT PROT 6.2 g/dl (6.4-8.2)
[2017-01-21 17:30] LABS: URINE APPEARANCE CLEAR; URINE BILIRUBIN NEGATIVE (NEGATIVE); URINE BLOOD NEGATIVE (NEGATIVE); URINE COLOR AMBER; URINE GLUCOSE (UA) NEGATIVE (NEGATIVE); URINE KETONE NEGATIVE (NEGATIVE); URINE LEUK ESTERASE NEGATIVE (NEGATIVE); URINE NITRITE NEGATIVE (NEGATIVE); URINE PROTEIN NEGATIVE (NEGATIVE); URINE UROBILINOGEN 4.0 E.U/dl mg/dL (0.2-1.0)
--- NOTE | 2017-01-21 17:39 | CON.GI ---
Consult Consult Specialty:: gastroentrology Referred by:: hospitalist - History of Present Illness History of Present Illness: 56 y/o male with PMH of alcohol cirrhosis coomplicated by esphageal varices, neoplastic lesions in the liver and ascitis was doin well until yesterday when he developed hematemesis. On admission his hgb was as low as 6 grams. In the ICu no further bleeding was noted. He received a total of 3 units of PRBC. - Past Medical History Cardio/Vascular: Yes: HTN Gastrointestinal: Yes: Esophageal Varices, Peptic Ulcer Disease Hepatobiliary: Yes: Cirrhosis, Other (esophageal varices, hepatocellular carcinoma) Renal/: Yes: Other (? 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 History of Recent Travel: No Home Medications - Allergies Allergies/Adverse Reactions: Allergies Allergy/AdvReac Type Severity Reaction Status Date / Time No Known Allergies Allergy Verified 01/20/17 11:06 - Home Medications Home Medications: Ambulatory Orders Nadolol [Corgard -] 40 mg PO DAILY #14 tablet 10/30/16 Spironolactone [Aldactone -] 100 mg PO DAILY #14 tablet 10/30/16 Family Disease History - Family Disease History Family Disease History: Heart Disease: Father, Mother (in her 40s) Physical Exam-GI Vital Signs: Vital Signs Temperature 98.6 F 01/21/17 14:00 Pulse Rate 56 L 01/21/17 16:00 Respiratory Rate 18 01/21/17 16:00 Blood Pressure 116/75 01/21/17 16:00 O2 Sat by Pulse Oximetry (%) 100 01/21/17 03:00 Constitutional: Yes: Well Nourished Eyes: Yes: Conjunctiva Clear HENT: Yes: Atraumatic Neck: Yes: Supple Cardiovascular: Yes: Regular Rate and Rhythm Respiratory: Yes: CTA Bilaterally Gastrointestinal Inspection: Yes: Ascites ...Palpate: Yes: Soft. No: Firm/Rigid, Guarding, Hepatomegaly, Mass, Pulsatile Mass, Splenomegaly, Tenderness Labs: CBC, BMP 01/21/17 16:00 01/21/17 07:55 INR, PTT INR 1.43 (0.82-1.09) H 01/21/17 02:40 Hepatic Panel Total Bilirubin 1.8 mg/dL (0.2-1.0) H D 01/21/17 16:00 Direct Bilirubin 0.6 mg/dL (0.0-0.2) H 01/21/17 16:00 AST 41 U/L (15-37) H D 01/21/17 16:00 ALT 23 U/L (12-78) 01/21/17 16:00 Alkaline Phosphatase 188 U/L (45-117) H 01/21/17 16:00 Albumin 2.1 g/dl (3.4-5.0) L 01/21/17 16:00 Problem List - Problems (1) Upper GI bleed Assessment/Plan: r/o variceal bleeding R>tranfuse to Hgb of greater than 8 continue IV Protonix and Octreotide for EGD Code(s): K92.2 - GASTROINTESTINAL HEMORRHAGE, UNSPECIFIED (2) Neoplasm, liver Assessment/Plan: obtain alpha fetoprotein, if normal will need triphase CT of the liver to r/o hemangiomas
[2017-01-21] MEDS: DEXTROSE 5%-0.45% SALINE 1,000 ML IV SCH (18:24)
[2017-01-21] MEDS ORDERED: OCTREOTIDE ACETATE 1,200 MCG in DEXTROSE 5%-WATER - 488 ML IVPB SCH (21:15)
[2017-01-22 06:08] LABS: MCH 25.5 pg (25.7-33.7); MCHC 33.8 g/dl (32.0-35.9); MEAN CELL VOLUME 75.5 fl (80-96); MEAN PLT VOLUME 8.5 fl (7.5-11.1); PLATELET COUNT 95 K/MM3 (134-434); RDW 19.6 % (11.9-15.9); WHITE BLOOD COUNT 5.7 K/mm3 (4.0-10.0)
[2017-01-22 06:37] LABS: ANION GAP 11 (8-16); CALCIUM 7.2 mg/dL (8.5-10.1); CO2 22 mmol/L (21-32); GLUCOSE,RANDOM 154 mg/dL (74-106); MAGNESIUM 1.9 mg/dL (1.8-2.4)
[2017-01-22 06:41] LABS: ALK PHOS 183 U/L (45-117); BILIRUBIN,TOTAL 1.2 mg/dL (0.2-1.0); CREATININE 0.8 mg/dL (0.7-1.3); PHOSPHOROUS 3.2 mg/dL (2.5-4.9); SGOT/AST 37 U/L (15-37); SGPT/ALT 27 U/L (12-78); TOT PROT 5.9 g/dl (6.4-8.2)
--- NOTE | 2017-01-22 08:13 | PN ---
Physical Exam: SUBJECTIVE: Patient seen and examined OBJECTIVE: Vital Signs Period Temp Pulse Resp BP Sys/Nicole Pulse Ox Last 24 Hr 98.1 F-99.1 F 54-69 17-21 88-118/59-78 99 GENERAL: The patient is awake, alert, and fully oriented, in moderate distress HEAD: Normal with no signs of trauma. EYES:Right eye conjective is injected, cloudy cornea from traumatic event at work LUNGS: Breath sounds equal, clear to auscultation bilaterally, no wheezes, no crackles, no accessory muscle use. HEART: Regular rate and rhythm, S1, S2 without murmur, rub or gallop. ABDOMEN: Severely Distended, tense, dull to percussion, and tender Intake & Output 01/19/17 01/20/17 01/21/17 01/22/17 23:59 23:59 23:59 23:59 Intake Total 350 3631 1872 Output Total 1000 400 Balance 350 2631 1472 Weight 87.997 kg 89.443 kg Provider Orders Category Date Time Status Admission Certification ONCEPCS Admission 01/20/17 14:42 Active Admit for Inpatient Services ONCE Admission 01/20/17 14:42 Active Decision to Admit to Hospital Routine Admission 01/20/17 14:28 Active PACKED CELLS Stat Blood Bank 01/20/17 12:24 Results TYPE AND SCREEN Stat Blood Bank 01/20/17 12:24 Results ELECTROCARDIOGRAM [CARD] Stat Cardiology 01/20/17 12:20 Completed Activity, OOB As tolerated Care 01/20/17 14:35 Inactive Cardiac Monitoring NOW Care 01/20/17 14:35 Active EKG needed NOW Care 01/20/17 12:21 Completed Early ambulation QS Care 01/20/17 14:39 Active Procedure Planned See Order Care 01/21/17 17:31 Active RN-See BBK Order, Packed Cells ASDIR Care 01/20/17 14:06 Completed RN-See BBK Order, Packed Cells ASDIR Care 01/20/17 21:03 Completed RN-See BBK Order, Packed Cells ASDIR Care 01/21/17 05:55 Completed SCDs, apply Both legs Care 01/20/17 14:39 Completed Vital Signs Q1H Care 01/20/17 12:20 Completed Vital Signs Q2H Care 01/20/17 14:35 Active Physician Consultation Physician 1 Cons 01/20/17 13:38 Ordered Nothing by Mouth [DT] Diet 01/20/17 14:36 Active ACTIVATED PTT Stat Lab 01/20/17 12:24 Completed AFP,TUMOR MARKER Stat Lab 01/21/17 16:00 Received [id number] Stat Lab 01/21/17 16:00 Received AMMONIA (NH4) Stat Lab 01/21/17 16:00 Completed BASIC METABOLIC PANEL Routine Lab 01/21/17 07:55 Completed CARDIAC PROFILE ([facility]) Stat Lab 01/20/17 12:24 Completed CBC WITH DIFFERENTIAL Routine Lab 01/21/17 07:55 Completed CBC WITH DIFFERENTIAL Stat Lab 01/20/17 12:24 Completed CBC WITH DIFFERENTIAL Stat Lab 01/20/17 20:20 Completed CBC [COMPLETE BLOOD COUNT] Stat Lab 01/21/17 02:41 Completed CBC [COMPLETE BLOOD COUNT] Stat Lab 01/21/17 16:00 Completed CBC [COMPLETE BLOOD COUNT] Stat Lab 01/21/17 20:00 Ordered COMP METABOLIC PANEL Routine Lab 01/22/17 05:00 Completed COMP METABOLIC PANEL Stat Lab 01/20/17 12:24 Completed COMPLETE BLOOD COUNT Routine Lab 01/22/17 05:00 Completed ETOH LEVEL [ALCOHOL] Stat Lab 01/21/17 02:40 Completed HEPATIC FUNCTION PANEL Stat Lab 01/21/17 16:00 Completed HEPATITIS A & B PANEL Stat Lab 01/21/17 16:00 Received HEPATITIS ACUTE PANEL Stat Lab 01/21/17 16:00 Received LACTIC ACID Routine Lab 01/21/17 07:55 Completed LACTIC ACID Stat Lab 01/20/17 21:15 Completed LACTIC ACID Stat Lab 01/21/17 16:00 Completed Liver Profile [HEPATIC FUNCTION PANEL] Routine Lab 01/21/17 07:55 Completed MAGNESIUM Routine Lab 01/21/17 07:55 Completed MAGNESIUM Routine Lab 01/22/17 05:00 Completed PHOSPHOROUS Routine Lab 01/21/17 07:55 Completed PHOSPHOROUS Routine Lab 01/22/17 05:00 Completed PT [PT/INR (PROTHROMBIN TIME)] Stat Lab 01/21/17 02:40 Completed PT/INR (PROTHROMBIN TIME) Stat Lab 01/20/17 12:20 Stop Req RBC MORPH Stat Lab 01/21/17 02:41 Completed STOOL FOR OCCULT BLOOD Stat Lab 01/21/17 16:26 Ordered UA [URINALYSIS] Stat Lab 01/21/17 17:00 Completed URINALYSIS Stat Lab 01/20/17 15:17 Completed Urine Toxicology [DRUG SCREEN,UR ER- [facility]] Stat Lab 01/21/17 01:00 Completed Ceftriaxone [Rocephin 1Gm Ivpb (Pre-Docked)] 50 ml Medication 01/21/17 09:45 Discontinued IVPB ONCE Dextrose 5%-0.45% Saline [D5-1/2Ns -] 1,000 ml Medication 01/20/17 14:45 Discontinued IV ASDIR Dextrose 5%-0.45% Saline [D5-1/2Ns -] 1,000 ml Medication 01/20/17 22:31 Discontinued IV ASDIR Dextrose 5%-0.45% Saline [D5-1/2Ns -] 1,000 ml Medication 01/21/17 09:08 Discontinued IV ASDIR Dextrose 5%-0.45% Saline [D5-1/2Ns -] 1,000 ml Medication 01/21/17 18:00 Active IV ASDIR Furosemide Injection [Lasix Injection -] Medication 01/20/17 14:44 Discontinued 20 mg IVPUSH ONCE ONE Furosemide Injection [Lasix Injection -] Medication 01/20/17 17:23 Discontinued 40 mg .ROUTE .STK-MED ONE Nadolol [Corgard -] Medication 01/21/17 10:00 Active 40 mg PO DAILY Nadolol [Corgard -] Medication 01/21/17 10:00 Discontinued 40 mg PO DAILY Octreotide Acetate [Sandostatin -] Medication 01/20/17 13:06 Discontinued 100 mcg .ROUTE .STK-MED ONE Octreotide Acetate [Sandostatin -] Medication 01/20/17 12:20 Discontinued 50 mcg IVPUSH ONCE ONE Octreotide Acetate [Sandostatin -] 1,200 mcg Medication 01/20/17 21:15 Discontinued Dextrose 5%-Water - [D5w -] 488 ml IVPB Q24H Octreotide Acetate [Sandostatin -] 1,200 mcg Medication 01/21/17 21:15 Active Dextrose 5%-Water - [D5w -] 488 ml IVPB Q24H Pantoprazole Sodium [Protonix 40Mg Ivpb (Pre-Docked)] Medication 01/21/17 10: 00 Discontinued 100 ml IVPB DAILY Pantoprazole Sodium [Protonix 40Mg Ivpb (Pre-Docked)] Medication 01/20/17 12: 34 Discontinued 200 ml IVPB UD Pantoprazole Sodium [Protonix Ivpb -] 80 mg Medication 01/20/17 12:20 Discontinued Sodium Chloride [Normal Saline -] 100 ml IVPB ONCE Pantoprazole Sodium [Protonix Ivpb -] 80 mg Medication 01/20/17 21:15 Discontinued Sodium Chloride [Normal Saline -] 100 ml IVPB Q10H Pantoprazole Sodium [Protonix Ivpb -] 80 mg Medication 01/21/17 07:15 Active Sodium Chloride [Normal Saline -] 100 ml IVPB Q10H Patient Specific Medications [Pt Own Med Drawer] Medication 01/21/17 09:22 Discontinued 1 ea .ROUTE .STK-MED ONE Patient Specific Medications [Pt Own Med Drawer] Medication 01/21/17 10:45 Discontinued 1 ea .ROUTE .STK-MED ONE Sodium Chloride [Normal Saline -] 500 ml Medication 01/20/17 12:20 Discontinued IV ONCE Spironolactone [Aldactone -] Medication 01/21/17 10:00 Discontinued 100 mg PO DAILY Spironolactone [Aldactone -] Medication 01/21/17 10:00 Discontinued 100 mg PO DAILY URINE CULTURE Stat Micro 01/21/17 11:48 Uncollected Activity, BRP As tolerated Phy Order 01/20/17 14:35 Active Saline Lock, Insert ONCE Phy Order 01/20/17 12:30 Ordered Straight cath NOW Phy Order 01/21/17 16:18 Completed VTE Risk Level/Orders Routine Phy Order 01/20/17 14:35 Ordered CHEST X-RAY PORTABLE* [RAD] Stat Radiology 01/20/17 12:20 Completed Test Diet Needed Abd US, Please Enter See Order Reminders 01/21/17 09:35 Ordered Oxygen Therapy Nasal Cannula 2 lpm Master Control Operator 01/20/17 12:20 Ordered Transfer Order Routine Transfer 01/20/17 Completed ABDOMEN US [US] Routine Ultrasound 01/21/17 09:34 Completed Medications Generic Name Dose Route Start Last Admin Trade Name Freq PRN Reason Stop Dose Admin Pantoprazole Sodium 80 mg/ 100 mls @ 10 mls/hr 01/21/17 07:15 01/21/17 17:29 Sodium Chloride IVPB 10 mls/hr Q10H VALERIA Administration 8 MG/HR Octreotide Acetate 1,200 mcg/ 500 mls @ 20.83 mls/hr 01/21/17 21:15 01/21/17 21 :50 Dextrose IVPB 20.83 mls/hr Q24H VALERIA Administration Protocol 50 MCG/HR Dextrose/Sodium Chloride 1,000 mls @ 125 mls/hr 01/21/17 18:00 01/21/17 18:24 D5-1/2ns - IV 01/23/17 01:59 125 mls/hr ASDIR VALERIA Administration Nadolol 40 mg 01/21/17 10:00 01/21/17 10:50 Corgard - PO 40 mg DAILY VALERIA Administration Discontinued Medications Generic Name Dose Route Start Last Admin Trade Name Aaronq PRN Reason Stop Dose Admin Furosemide 20 mg 01/20/17 14:44 01/20/17 17:43 Lasix Injection - IVPUSH 01/20/17 14:45 20 mg ONCE ONE Administration Furosemide Confirm 01/20/17 17:23 Lasix Injection - Administered 01/20/17 17:24 Dose 40 mg .ROUTE .STK-MED ONE Pantoprazole Sodium 80 mg/ 100 mls @ 200 mls/hr 01/20/17 12:20 01/20/17 13:04 Sodium Chloride IVPB 01/20/17 12:49 200 mls/hr ONCE ONE Administration Sodium Chloride 500 mls @ 500 mls/hr 01/20/17 12:20 01/20/17 13:04 Normal Saline - IV 01/20/17 13:19 500 mls/hr ONCE ONE Administration Pantoprazole Sodium Confirm 01/20/17 12:34 Protonix 40mg Ivpb (Pre-Docked) Administered 01/20/17 12:35 Dose 200 mls @ ud IVPB .STK-MED ONE Dextrose/Sodium Chloride 1,000 mls @ 75 mls/hr 01/20/17 14:45 01/20/17 17:43 D5-1/2ns - IV 75 mls/hr ASDIR VALERIA Administration Pantoprazole Sodium 100 mls @ 200 mls/hr 01/21/17 10:00 Protonix 40mg Ivpb (Pre-Docked) IVPB DAILY VALERIA Pantoprazole Sodium 80 mg/ 100 mls @ 10 mls/hr 01/20/17 21:15 01/20/17 22:28 Sodium Chloride IVPB 10 mls/hr Q10H VALERIA Administration 8 MG/HR Octreotide Acetate 1,200 mcg/ 500 mls @ 20.83 mls/hr 01/20/17 21:15 01/20/17 22 :28 Dextrose IVPB 20.83 mls/hr Q24H VALERIA Administration 50 MCG/HR Dextrose/Sodium Chloride 1,000 mls @ 75 mls/hr 01/20/17 22:31 01/21/17 07:37 D5-1/2ns - IV 75 mls/hr ASDIR VALERIA Administration Dextrose/Sodium Chloride 1,000 mls @ 125 mls/hr 01/21/17 09:08 01/21/17 09:31 D5-1/2ns - IV 125 mls/hr ASDIR VALERIA Administration Ceftriaxone Sodium 50 mls @ 100 mls/hr 01/21/17 09:45 01/21/17 13:36 Rocephin 1gm Ivpb (Pre-Docked) IVPB 01/21/17 10:14 100 mls/hr ONCE ONE Administration Nadolol 40 mg 01/21/17 10:00 Corgard - PO DAILY VALERIA Octreotide Acetate 50 mcg 01/20/17 12:20 01/20/17 13:04 Sandostatin - IVPUSH 01/20/17 12:21 50 mcg ONCE ONE Administration Octreotide Acetate Confirm 01/20/17 13:06 Sandostatin - Administered 01/20/17 13:07 Dose 100 mcg .ROUTE .STK-MED ONE Patient Own Medication Confirm 01/21/17 09:22 Pt Own Med Drawer Administered 01/21/17 09:23 Dose 1 ea .ROUTE .STK-MED ONE Patient Own Medication Confirm 01/21/17 10:45 Pt Own Med Drawer Administered 01/21/17 10:46 Dose 1 ea .ROUTE .STK-MED ONE Spironolactone 100 mg 01/21/17 10:00 Aldactone - PO DAILY VALERIA Spironolactone 100 mg 01/21/17 10:00 01/21/17 09:35 Aldactone - PO 100 mg DAILY VALERIA Administration Lab Results WBC 5.7 K/mm3 (4.0-10.0) 01/22/17 05:00 RBC 3.49 M/mm3 (4.00-5.60) L 01/22/17 05:00 Hgb 8.9 GM/dL (11.7-16.9) L 01/22/17 05:00 Hct 26.4 % (35.4-49) L 01/22/17 05:00 MCV 75.5 fl (80-96) L 01/22/17 05:00 MCH 25.5 pg (25.7-33.7) L 01/22/17 05:00 MCHC 33.8 g/dl (32.0-35.9) 01/22/17 05:00 RDW 19.6 % (11.9-15.9) H 01/22/17 05:00 Plt Count 95 K/MM3 (134-434) L 01/22/17 05:00 MPV 8.5 fl (7.5-11.1) 01/22/17 05:00 Neutrophils % 69.0 % (42.8-82.8) 01/21/17 07:55 Lymphocytes % 16.7 % (8-40) D 01/21/17 07:55 Monocytes % 11.7 % (3.8-10.2) H 01/21/17 07:55 Eosinophils % 2.3 % (0-4.5) D 01/21/17 07:55 Basophils % 0.3 % (0-2.0) 01/21/17 07:55 Hypochromia 2+ 01/21/17 02:41 Platelet Estimate Slt decreased (NORMAL) 01/21/17 02:41 Polychromasia 1+ 01/21/17 02:41 Anisocytosis 2+ 01/21/17 02:41 Microcytosis 1+ 01/21/17 02:41 INR 1.43 (0.82-1.09) H 01/21/17 02:40 PTT (Actin FS) 34.6 SECONDS (26.9-34.4) H 01/20/17 12:24 Sodium 137 mmol/L (136-145) 01/22/17 05:00 Potassium 3.6 mmol/L (3.5-5.1) 01/22/17 05:00 Chloride 104 mmol/L (98-107) 01/22/17 05:00 Carbon Dioxide 22 mmol/L (21-32) 01/22/17 05:00 Anion Gap 11 (8-16) 01/22/17 05:00 BUN 22 mg/dL (7-18) H D 01/22/17 05:00 Creatinine 0.8 mg/dL (0.7-1.3) 01/22/17 05:00 Creat Clearance w eGFR > 60 (>60) 01/22/17 05:00 Random Glucose 154 mg/dL (74-106) H 01/22/17 05:00 Lactic Acid 3.3 mmol/L (0.4-2.0) H* 01/21/17 16:00 Calcium 7.2 mg/dL (8.5-10.1) L 01/22/17 05:00 Phosphorus 3.2 mg/dL (2.5-4.9) 01/22/17 05:00 Magnesium 1.9 mg/dL (1.8-2.4) 01/22/17 05:00 Total Bilirubin 1.2 mg/dL (0.2-1.0) H D 01/22/17 05:00 Direct Bilirubin 0.6 mg/dL (0.0-0.2) H 01/21/17 16:00 AST 37 U/L (15-37) 01/22/17 05:00 ALT 27 U/L (12-78) 01/22/17 05:00 Alkaline Phosphatase 183 U/L (45-117) H 01/22/17 05:00 Ammonia 65.81 umol/L (11-32) H 01/21/17 16:00 Creatine Kinase 40 IU/L (39-308) 01/20/17 12:24 Troponin I < 0.02 ng/ml (0.00-0.05) 01/20/17 12:24 Total Protein 5.9 g/dl (6.4-8.2) L 01/22/17 05:00 Albumin 2.0 g/dl (3.4-5.0) L 01/22/17 05:00 Urine Color Lidia 01/21/17 17:00 Urine Appearance Clear 01/21/17 17:00 Urine pH 6.0 (5.0-8.0) 01/21/17 17:00 Ur Specific [place] 1.015 (1.005-1.025) 01/21/17 17:00 Urine Protein Negative (NEGATIVE) 01/21/17 17:00 Urine Glucose (UA) Negative (NEGATIVE) 01/21/17 17:00 Urine Ketones Negative (NEGATIVE) 01/21/17 17:00 Urine Blood Negative (NEGATIVE) 01/21/17 17:00 Urine Nitrite Negative (NEGATIVE) 01/21/17 17:00 Urine Bilirubin Negative (NEGATIVE) 01/21/17 17:00 Urine Urobilinogen 4.0 e.u/dl mg/dL (0.2-1.0) 01/21/17 17:00 Opiates Screen Negative ng/ml (VUVMQN=982) 01/21/17 01:00 Methadone Screen Negative ng/ml (MVEATO=146) 01/21/17 01:00 Barbiturate Screen Negative ng/ml (GLZPOD=130) 01/21/17 01:00 Phencyclidine Screen Negative ng/ml (CUTOFF=25) 01/21/17 01:00 Ur Amphetamines Screen Negative ng/ml (JRGARH=104) 01/21/17 01:00 MDMA (Ecstasy) Screen Negative ng/ml (MAKBJG=506) 01/21/17 01:00 Benzodiazepines Screen Negative ng/ml (AJHCEM=878) 01/21/17 01:00 Cocaine Screen Negative ng/ml (UCDWLW=635) 01/21/17 01:00 U Marijuana (THC) Screen Negative ng/ml (CUTOFF=50) 01/21/17 01:00 Alcohol, Quantitative < 5.0 mg/dl (0-5) 01/21/17 02:40 Blood Type O POSITIVE 01/20/17 12:24 Antibody Screen Negative 01/20/17 12:24 Crossmatch See Detail 01/20/17 12:24 Laboratory Results - last 24 hr 01/21/17 01/21/17 01/21/17 07:55 07:55 07:55 WBC 6.0 RBC 3.02 L Hgb 7.5 L D Hct 22.4 L MCV 74.4 L MCH 24.8 L MCHC 33.4 RDW 19.2 H Plt Count 96 L MPV 8.5 Neutrophils % 69.0 Lymphocytes % 16.7 D Monocytes % 11.7 H Eosinophils % 2.3 D Basophils % 0.3 Sodium 139 Potassium 4.0 D Chloride 107 Carbon Dioxide 24 Anion Gap 8 BUN 35 H Creatinine 0.9 Creat Clearance w eGFR Random Glucose 140 H D Lactic Acid Calcium 7.6 L Phosphorus 3.2 Magnesium 1.8 Total Bilirubin 1.3 H D Direct Bilirubin 0.5 H AST 24 ALT 20 Alkaline Phosphatase 187 H D Ammonia Total Protein 5.9 L Albumin 2.0 L Urine Color Urine Appearance Urine pH Ur Specific [place] Urine Protein Urine Glucose (UA) Urine Ketones Urine Blood Urine Nitrite Urine Bilirubin Urine Urobilinogen 01/21/17 01/21/17 01/21/17 07:55 16:00 16:00 WBC 5.6 RBC 3.48 L Hgb 8.8 L D Hct 26.3 L D MCV 75.4 L MCH 25.3 L MCHC 33.5 RDW 19.4 H Plt Count 100 L MPV 8.3 Neutrophils % Lymphocytes % Monocytes % Eosinophils % Basophils % Sodium Potassium Chloride Carbon Dioxide Anion Gap BUN Creatinine Creat Clearance w eGFR Random Glucose Lactic Acid 3.1 H* Calcium Phosphorus Magnesium Total Bilirubin 1.8 H D Direct Bilirubin 0.6 H AST 41 H D ALT 23 Alkaline Phosphatase 188 H Ammonia Total Protein 6.2 L Albumin 2.1 L Urine Color Urine Appearance Urine pH Ur Specific [place] Urine Protein Urine Glucose (UA) Urine Ketones Urine Blood Urine Nitrite Urine Bilirubin Urine Urobilinogen 01/21/17 01/21/17 01/21/17 16:00 16:00 17:00 WBC RBC Hgb Hct MCV MCH MCHC RDW Plt Count MPV Neutrophils % Lymphocytes % Monocytes % Eosinophils % Basophils % Sodium Potassium Chloride Carbon Dioxide Anion Gap BUN Creatinine Creat Clearance w eGFR Random Glucose Lactic Acid 3.3 H* Calcium Phosphorus Magnesium Total Bilirubin Direct Bilirubin AST ALT Alkaline Phosphatase Ammonia 65.81 H Total Protein Albumin Urine Color Lidia Urine Appearance Clear Urine pH 6.0 Ur Specific [place] 1.015 Urine Protein Negative Urine Glucose (UA) Negative Urine Ketones Negative Urine Blood Negative Urine Nitrite Negative Urine Bilirubin Negative Urine Urobilinogen 4.0 e.u/dl 01/22/17 01/22/17 05:00 05:00 WBC 5.7 RBC 3.49 L Hgb 8.9 L Hct 26.4 L MCV 75.5 L MCH 25.5 L MCHC 33.8 RDW 19.6 H Plt Count 95 L MPV 8.5 Neutrophils % Lymphocytes % Monocytes % Eosinophils % Basophils % Sodium 137 Potassium 3.6 Chloride 104 Carbon Dioxide 22 Anion Gap 11 BUN 22 H D Creatinine 0.8 Creat Clearance w eGFR > 60 Random Glucose 154 H Lactic Acid Calcium 7.2 L Phosphorus 3.2 Magnesium 1.9 Total Bilirubin 1.2 H D Direct Bilirubin AST 37 ALT 27 Alkaline Phosphatase 183 H Ammonia Total Protein 5.9 L Albumin 2.0 L Urine Color Urine Appearance Urine pH Ur Specific [place] Urine Protein Urine Glucose (UA) Urine Ketones Urine Blood Urine Nitrite Urine Bilirubin Urine Urobilinogen Active Medications Generic Name Dose Route Start Last Admin Trade Name Emily PRN Reason Stop Dose Admin Pantoprazole Sodium 80 mg/ 100 mls @ 10 mls/hr 01/21/17 07:15 01/21/17 17:29 Sodium Chloride IVPB 10 mls/hr Q10H VALERIA Administration 8 MG/HR Octreotide Acetate 1,200 mcg/ 500 mls @ 20.83 mls/hr 01/21/17 21:15 01/21/17 21 :50 Dextrose IVPB 20.83 mls/hr Q24H VALERIA Administration Protocol 50 MCG/HR Dextrose/Sodium Chloride 1,000 mls @ 125 mls/hr 01/21/17 18:00 01/21/17 18:24 D5-1/2ns - IV 01/23/17 01:59 125 mls/hr ASDIR VALERIA Administration Nadolol 40 mg 01/21/17 10:00 01/21/17 10:50 Corgard - PO 40 mg DAILY VALERIA Administration ASSESSMENT/PLAN: 56 year-old male with a PMH significant for HTN, alcoholic cirrhosis, hepatoma, ascites s/p paracentesis, bleeding antral ulcer, and esophageal varices. Admitted for upper GI bleed. Transfered to ICU for decreasing hemoglobin 6.7 despite transfusion. 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 --transfused 4U PRBC 01/21, Hgb 6.8-->8.9 --Stopped IV fluids --01/22 EGD: medium varices entire esophagus; ulcer prepyloric region; ulcer duodenal bulb --continue Octreotide drip for one more day --continue Nadolol -- Resumed Spironolactone --protonix 40mg BID x 4 weeks, then daily x 8 weeks --start Rifaximin BID --H.pylori stool antigen ordered --AFP marker pending --d/w GI for possible paracentesis -- CLEAR DIET Hepatocellular carcinoma Cirrhosis --mild ascites on exam --last paracentesis was on 12/30/16 at [facility], 8.6L -- Cirrosis and hepatomas confirmed on ultrasound this am. -- Tumor markers pending Nutrition: NPO Family and patient deny being aware of cirrhosis diagnosis. I had conversation with patient alone to update him. He said it was ok to let family know. DVT prophylaxis: hold chemical prophylaxis due to bleeding issues; SCDs; oob, ambulation Dispo: TRANSFERRED TO FLOORS Visit type - Emergency Visit Emergency Visit: No - New Patient This patient is new to me today: No - Critical Care Critical Care patient: Yes Total Critical Care Time (in minutes): 30 Critical Care Statement: The care of this patient involved high complexity decision making to prevent further life threatening deterioration of the patient 's condition and/or to evaluate & treat vital organ system(s) failure or risk of failure.
[2017-01-22] MEDS: NADOLOL 40 MG TABLET (FP) PO SCH (10:30)
[2017-01-22] MEDS: DEXTROSE 5%-0.45% SALINE 1,000 ML IV SCH (10:32)
[2017-01-22] MEDS ORDERED: RIFAXIMIN 550 MG TABLET (UD) PO SCH ×2 (12:00→22:00)
--- NOTE | 2017-01-22 12:03 | PN ---
Teaching Attending Note Name of Resident: Farhan Berrios ATTENDING PHYSICIAN STATEMENT I saw and evaluated the patient. I reviewed the resident's note and discussed the case with the resident. I agree with the resident's findings and plan as documented. SUBJECTIVE: Pt seen and examined in the ICU. s/p EGD showing moderate varices, small ulcers. No further bleeding noted. Reports abdominal discomfort and some nausea. OBJECTIVE: Last Vital Signs Temp Pulse Resp BP Pulse Ox 98.7 F 56 L 14 137/79 100 01/22/17 10:00 01/22/17 10:13 01/22/17 10:00 01/22/17 10:00 01/22/17 10:13 Intake & Output 01/19/17 01/20/17 01/21/17 01/22/17 23:59 23:59 23:59 23:59 Intake Total 350 3631 1972 Output Total 1000 600 Balance 350 2631 1372 Weight 194 lb 0.003 oz 197 lb 3 oz Gen: NAD at rest Heart: RRR Lung: decreased breath sounds at the bases Abd: more distended, soft, +ascites Ext: no edema CBC, BMP 01/22/17 05:00 01/22/17 05:00 Active Medications Octreotide Acetate 1,200 mcg/ (Dextrose) 500 mls @ 20.83 mls/hr IVPB Q24H VALERIA; 50 MCG/HR PRN Reason: Protocol Stop: 01/23/17 08:00 Last Admin: 01/21/17 21:50 Dose: 20.83 mls/hr Dextrose/Sodium Chloride (D5-1/2ns -) 1,000 mls @ 125 mls/hr IV ASDIR VALERIA Stop: 01/23/17 01:59 Last Admin: 01/22/17 10:32 Dose: 125 mls/hr Nadolol (Corgard -) 40 mg PO DAILY VALERIA Last Admin: 01/22/17 10:30 Dose: Not Given Pantoprazole Sodium (Protonix -) 40 mg PO BID VALERIA Rifaximin (Xifaxan -) 550 mg PO BID VALERIA ASSESSMENT AND PLAN: GI Bleed Acute Blood Loss Anemia Esophageal Varices Peptic Ulcers Alcoholic Liver Cirrhosis Liver Masses Ascites Thrombocytopenia - GI input appreciated - conitinue octreotide for 1 more day - protonix BID - rifaximin - d/c IVF - d/w GI possible paracentesis - continue nadolol - resume aldactone - DVT prophylaxis - can monitor on floor
[2017-01-22] MEDS ORDERED: SPIRONOLACTONE 25 MG TABLET (FP) PO SCH (12:15)
--- NOTE | 2017-01-22 12:44 | PN ---
Physical Exam: SUBJECTIVE: Patient seen and examined in ICU at bedside and then oob to chair. States feeling better. OBJECTIVE: Vital Signs Period Temp Pulse Resp BP Sys/Nicole Pulse Ox Last 24 Hr 98.1 F-99.1 F 49-63 14-21 88-137/59-81 99-100 GENERAL: The patient is awake, alert, and fully oriented, in no acute distress. HEAD: Normal with no signs of trauma. EYES: PERRL, extraocular movements intact, sclera anicteric, conjunctiva clear. No ptosis. LUNGS: Bibasilar crackles HEART: Regular rate and rhythm, S1, S2 without murmur, rub or gallop. ABDOMEN: Distended, more tense than yesterday, diffusely tender EXTREMITIES: 2+ pulses, warm, well-perfused, no edema. NEUROLOGICAL: Cranial nerves II through XII grossly intact. Normal speech, gait not observed. Laboratory Results - last 24 hr 01/21/17 01/21/17 01/21/17 16:00 16:00 16:00 WBC 5.6 RBC 3.48 L Hgb 8.8 L D Hct 26.3 L D MCV 75.4 L MCH 25.3 L MCHC 33.5 RDW 19.4 H Plt Count 100 L MPV 8.3 Sodium Potassium Chloride Carbon Dioxide Anion Gap BUN Creatinine Creat Clearance w eGFR Random Glucose Lactic Acid 3.3 H* Calcium Phosphorus Magnesium Total Bilirubin 1.8 H D Direct Bilirubin 0.6 H AST 41 H D ALT 23 Alkaline Phosphatase 188 H Ammonia Total Protein 6.2 L Albumin 2.1 L Urine Color Urine Appearance Urine pH Ur Specific [place] Urine Protein Urine Glucose (UA) Urine Ketones Urine Blood Urine Nitrite Urine Bilirubin Urine Urobilinogen 01/21/17 01/21/17 01/22/17 16:00 17:00 05:00 WBC 5.7 RBC 3.49 L Hgb 8.9 L Hct 26.4 L MCV 75.5 L MCH 25.5 L MCHC 33.8 RDW 19.6 H Plt Count 95 L MPV 8.5 Sodium Potassium Chloride Carbon Dioxide Anion Gap BUN Creatinine Creat Clearance w eGFR Random Glucose Lactic Acid Calcium Phosphorus Magnesium Total Bilirubin Direct Bilirubin AST ALT Alkaline Phosphatase Ammonia 65.81 H Total Protein Albumin Urine Color Lidia Urine Appearance Clear Urine pH 6.0 Ur Specific [place] 1.015 Urine Protein Negative Urine Glucose (UA) Negative Urine Ketones Negative Urine Blood Negative Urine Nitrite Negative Urine Bilirubin Negative Urine Urobilinogen 4.0 e.u/dl 01/22/17 05:00 WBC RBC Hgb Hct MCV MCH MCHC RDW Plt Count MPV Sodium 137 Potassium 3.6 Chloride 104 Carbon Dioxide 22 Anion Gap 11 BUN 22 H D Creatinine 0.8 Creat Clearance w eGFR > 60 Random Glucose 154 H Lactic Acid Calcium 7.2 L Phosphorus 3.2 Magnesium 1.9 Total Bilirubin 1.2 H D Direct Bilirubin AST 37 ALT 27 Alkaline Phosphatase 183 H Ammonia Total Protein 5.9 L Albumin 2.0 L Urine Color Urine Appearance Urine pH Ur Specific [place] Urine Protein Urine Glucose (UA) Urine Ketones Urine Blood Urine Nitrite Urine Bilirubin Urine Urobilinogen Active Medications Generic Name Dose Route Start Last Admin Trade Name Freq PRN Reason Stop Dose Admin Octreotide Acetate 1,200 mcg/ 500 mls @ 20.83 mls/hr 01/22/17 21:15 Dextrose IVPB Q24H [facility] Protocol 50 MCG/HR Nadolol 40 mg 01/23/17 10:00 Corgard - PO DAILY [facility] Pantoprazole Sodium 40 mg 01/22/17 22:00 Protonix - PO BID [facility] Rifaximin 550 mg 01/22/17 22:00 Xifaxan - PO BID [facility] Spironolactone 100 mg 01/23/17 10:00 Aldactone - PO DAILY [facility] ASSESSMENT/PLAN 56 year-old male with a PMH significant for HTN, hepatocellular carcinoma, cirrhosis with ascites and esophageal varices, and bleeding antral ulcer. Admitted for upper GI bleed. Upper GI bleed Peptic ulcer disease Esophageal varices --transfused 4U PRBC 01/21, Hgb 6.8-->8.9 --01/22 EGD: medium varices entire esophagus; ulcer prepyloric region; ulcer duodenal bulb --continue Octreotide drip x 24 hours --continue Nadolol, spironolactone --protonix 40mg BID x 4 weeks, then daily x 8 weeks --start Rifaximin BID --H.pylori stool antigen ordered --AFP marker pending --GI following Hepatocellular carcinoma Cirrhosis --moderate ascites seen on 01/21 US, evident on clinical exam --last paracentesis was on 12/30/16 at [facility], 8.6L Hematuria ruled out --serial UAs negative for blood Hypertension --on no medications Fluids: D51/2NS @ 125mL/hr Electrolytes: replete as indicated Nutrition: clears DVT prophylaxis: hold chemical prophylaxis due to bleeding issues; SCDs; oob, ambulation Dispo: requires inpatient care. Full Code. Visit type - Emergency Visit Emergency Visit: Yes ED Registration Date: 01/20/17 Care time: The patient presented to the Emergency Department on the above date and was hospitalized for further evaluation of their emergent condition. - New Patient This patient is new to me today: No - Critical Care Critical Care patient: Yes Total Critical Care Time (in minutes): 35 Critical Care Statement: The care of this patient involved high complexity decision making to prevent further life threatening deterioration of the patient 's condition and/or to evaluate & treat vital organ system(s) failure or risk of failure.
[2017-01-22] MEDS ORDERED: PT OWN MED DRAWER 7, Y5N ONE ×2 (14:14→21:09)
[2017-01-22] MEDS: RIFAXIMIN 550 MG TABLET (UD) PO SCH ×2 (16:09→21:25)
[2017-01-22] MEDS: SPIRONOLACTONE 25 MG TABLET (FP) PO SCH (16:09)
[2017-01-22] MEDS ORDERED: OCTREOTIDE ACETATE 1,200 MCG in DEXTROSE 5%-WATER - 488 ML IVPB SCH (21:15)
[2017-01-22] MEDS: PANTOPRAZOLE 40 MG TABLET (FP) PO SCH (21:25)
[2017-01-22] MEDS ORDERED: PANTOPRAZOLE 40 MG TABLET (FP) PO SCH ×2 (22:00)
[2017-01-23 08:32] LABS: BASOPHIL 0.3 % (0-2.0); EOSINOPHIL 3.5 % (0-4.5); MCH 24.8 pg (25.7-33.7); MCHC 32.2 g/dl (32.0-35.9); MEAN CELL VOLUME 77.1 fl (80-96); MEAN PLT VOLUME 8.1 fl (7.5-11.1); NEUTROPHILS 74.3 % (42.8-82.8); PLATELET COUNT 154 K/MM3 (134-434); RDW 20.3 % (11.9-15.9); WHITE BLOOD COUNT 6.7 K/mm3 (4.0-10.0)
[2017-01-23 09:05] LABS: ALBUMIN 2.2 g/dl (3.4-5.0); ALK PHOS 214 U/L (45-117); ANION GAP 7 (8-16); BILIRUBIN,TOTAL 1.3 mg/dL (0.2-1.0); CALCIUM 7.6 mg/dL (8.5-10.1); CO2 24 mmol/L (21-32); CREATININE 0.9 mg/dL (0.7-1.3); GLUCOSE,RANDOM 155 mg/dL (74-106); SGOT/AST 35 U/L (15-37); SGPT/ALT 28 U/L (12-78); TOT PROT 6.8 g/dl (6.4-8.2)
[2017-01-23] MEDS: RIFAXIMIN 550 MG TABLET (UD) PO SCH ×2 (09:56→22:06)
[2017-01-23] MEDS: PANTOPRAZOLE 40 MG TABLET (FP) PO SCH ×2 (09:56→22:06)
[2017-01-23] MEDS: SPIRONOLACTONE 25 MG TABLET (FP) PO SCH (09:56)
[2017-01-23] MEDS ORDERED: SPIRONOLACTONE 25 MG TABLET (FP) PO SCH (10:00)
[2017-01-23] MEDS ORDERED: NADOLOL 40 MG TABLET (FP) PO SCH (10:00)
[2017-01-23] MEDS: NADOLOL 40 MG TABLET (FP) PO SCH (10:06)
--- NOTE | 2017-01-23 17:39 | PN ---
Progress Note (short form) - Note Progress Note: Subjective: The patient was seen and examined at the bedside, he has no complaints at this time. Awaiting h.pylori stool culture Current Medications Generic Name Dose Route Start Last Admin Trade Name Emily PRN Reason Stop Dose Admin Nadolol 40 mg 01/23/17 10:00 01/23/17 10:06 Corgard - PO Not Given DAILY [facility] Pantoprazole Sodium 40 mg 01/22/17 22:00 01/23/17 09:56 Protonix - PO 40 mg BID [facility] Administration Rifaximin 550 mg 01/22/17 22:00 01/23/17 09:56 Xifaxan - PO 550 mg BID [facility] Administration Spironolactone 100 mg 01/23/17 10:00 01/23/17 09:56 Aldactone - PO 100 mg DAILY [facility]ERIA Administration Objective: Vital Signs Period Temp Pulse Resp BP Sys/Nicole Pulse Ox Last 24 Hr 98.0 F-98.7 F 52-58 15-20 110-115/64-75 95-100 Physical Exam: General: NAD, A&Ox3, jaundice HEENT: B/l strabismus Lungs: CTA bilaterally Heart: RRR, S1S2 Abd: Distended. Tympanic sounds Ext: Warm, well-perfused CBCD WBC 6.7 K/mm3 (4.0-10.0) 01/23/17 08:00 RBC 4.26 M/mm3 (4.00-5.60) D 01/23/17 08:00 Hgb 10.6 GM/dL (11.7-16.9) L D 01/23/17 08:00 Hct 32.9 % (35.4-49) L D 01/23/17 08:00 MCV 77.1 fl (80-96) L 01/23/17 08:00 MCHC 32.2 g/dl (32.0-35.9) 01/23/17 08:00 RDW 20.3 % (11.9-15.9) H 01/23/17 08:00 Plt Count 154 K/MM3 (134-434) D 01/23/17 08:00 MPV 8.1 fl (7.5-11.1) 01/23/17 08:00 CMP Sodium 136 mmol/L (136-145) 01/23/17 08:00 Potassium 4.0 mmol/L (3.5-5.1) 01/23/17 08:00 Chloride 105 mmol/L (98-107) 01/23/17 08:00 Carbon Dioxide 24 mmol/L (21-32) 01/23/17 08:00 Anion Gap 7 (8-16) L 01/23/17 08:00 BUN 17 mg/dL (7-18) D 01/23/17 08:00 Creatinine 0.9 mg/dL (0.7-1.3) 01/23/17 08:00 Creat Clearance w eGFR > 60 (>60) 01/23/17 08:00 Random Glucose 155 mg/dL (74-106) H 01/23/17 08:00 Calcium 7.6 mg/dL (8.5-10.1) L 01/23/17 08:00 Total Bilirubin 1.3 mg/dL (0.2-1.0) H 01/23/17 08:00 AST 35 U/L (15-37) 01/23/17 08:00 ALT 28 U/L (12-78) 01/23/17 08:00 Alkaline Phosphatase 214 U/L (45-117) H 01/23/17 08:00 Total Protein 6.8 g/dl (6.4-8.2) 01/23/17 08:00 Albumin 2.2 g/dl (3.4-5.0) L 01/23/17 08:00 CARDIAC ENZYMES Creatine Kinase 40 IU/L (39-308) 01/20/17 12:24 Troponin I < 0.02 ng/ml (0.00-0.05) 01/20/17 12:24 Assessment: This is a 56 year old male with PMHx of HTN, hepatocellular carcinoma, cirrhosis with ascites, esophageal varices, bleeding antral ulcer, who presented to the ED with an upper GI bleed. Plan: 1) GI: Upper GI bleed - Hgb stable - EGD yesterday, report reviewed - Octreotide gtt discontinued today - Protonix 40mg bid x4 weeks then daily x2 months - F/u H.pylori stool Ag (discussed with RN) Liver cirrhosis with ascites - Rifaximin bid - Continue Nadolol - Continue Spironolactone - Abd ultrasound with moderate volume of abdominal ascites - Patient appears comfortable at this time, continue to monitor and consider Hepatocellular carcinoma - F/u AFP - If AFP normal, will need triphase CT of the liver to r/o hemangiomas - Call placed to Dr. Zuniga to discuss, awaiting callback 2) F/E/N: - Regular diet as tolerated - Monitor electrolytes 3) Prophylaxis: - OOB ambulating - SCDs bilaterally 4) Dispo: - Requires continued inpatient care - Awaiting call back from Dr. Zuniga to discuss discharge plan and follow-up instructions CODE STATUS: FULL CODE Visit type - Emergency Visit Emergency Visit: Yes ED Registration Date: 01/20/17 Care time: The patient presented to the Emergency Department on the above date and was hospitalized for further evaluation of their emergent condition. - New Patient This patient is new to me today: Yes Date on this admission: 01/23/17 - Critical Care Critical Care patient: No
[2017-01-23] MEDS ORDERED: LACTULOSE 20 GM/30 ML UDC (FOR ORAL USE ONLY) PO ONE ×2 (18:22→22:00)
[2017-01-23] MEDS: INSULIN SLIDING SCALE (NOVOLOG) 1 VIAL SQ SCH (22:06)
[2017-01-24 00:06] LABS: HEP B SURFACE AB Non Reactive (.)
[2017-01-24] MEDS: INSULIN SLIDING SCALE (NOVOLOG) 1 VIAL SQ SCH (06:24)
[2017-01-24 07:26] LABS: BASOPHIL 0.4 % (0-2.0); EOSINOPHIL 3.6 % (0-4.5); MCHC 32.3 g/dl (32.0-35.9); MEAN CELL VOLUME 77.3 fl (80-96); MEAN PLT VOLUME 8.5 fl (7.5-11.1); PLATELET COUNT 127 K/MM3 (134-434); RDW 20.3 % (11.9-15.9); WHITE BLOOD COUNT 6.4 K/mm3 (4.0-10.0)
[2017-01-24] MEDS: PANTOPRAZOLE SODIUM 80 MG in SODIUM CHLORIDE 100 ML IVPB SCH (07:27)
[2017-01-24 08:00] LABS: ALBUMIN 2.3 g/dl (3.4-5.0); ANION GAP 8 (8-16); CALCIUM 7.5 mg/dL (8.5-10.1); CO2 23 mmol/L (21-32); GLUCOSE,RANDOM 121 mg/dL (74-106)
[2017-01-24 08:05] LABS: ALK PHOS 211 U/L (45-117); CREATININE 0.8 mg/dL (0.7-1.3); SGOT/AST 32 U/L (15-37); SGPT/ALT 25 U/L (12-78); TOT PROT 6.6 g/dl (6.4-8.2)
[2017-01-24 09:20] VITALS: BP 121/74; TEMP 97.8
[2017-01-24] MEDS: NADOLOL 40 MG TABLET (FP) PO SCH (09:21)
[2017-01-24] MEDS: SPIRONOLACTONE 25 MG TABLET (FP) PO SCH (09:27)
[2017-01-24] MEDS: RIFAXIMIN 550 MG TABLET (UD) PO SCH (09:27)
[2017-01-24] MEDS: PANTOPRAZOLE 40 MG TABLET (FP) PO SCH (09:28)
--- NOTE | 2017-01-24 10:33 | DS ---
Physical Examination Vital Signs: Vital Signs Temperature 97.8 F 01/24/17 09:00 Pulse Rate 59 L 01/24/17 09:00 Respiratory Rate 20 01/24/17 09:00 Blood Pressure 121/74 01/24/17 09:00 O2 Sat by Pulse Oximetry (%) 95 01/23/17 22:00 Labs: CBC, BMP 01/24/17 06:50 01/24/17 06:50 Discharge Summary Reason For Visit: ESOPHAGEAL VARICES,UPPER GI HEMORRHAGE Current Active Problems Anemia (Acute) Esophageal varices with bleeding (Acute) Liver mass (Acute) Upper GI bleed (Acute) Hospital Course: [facility] #[id number] - Instructions Diet, Activity, Other Instructions: Please return to the ED with new, persistent, or worsening symptoms. As discussed, you MUST follow-up with Dr. Zuniga on 01/26/17 to schedule a triphase CAT scan and evaluate for any need for a paracentesis. Referrals: Wiliam Casarez MD [Staff Physician] - 1 Week Elijah Zuniga MD [Staff Physician] - (Please follow-up with Dr. Zuniga on to schedule an outpatient tri-phase CAT scan and to discuss an outpatient paracentesis. ) Disposition: HOME - Home Medications Comprehensive Discharge Medication List: Ambulatory Orders Nadolol [Corgard -] 40 mg PO DAILY #14 tablet 10/30/16 Pantoprazole Sodium [Protonix -] 40 mg PO BID #120 tab 01/24/17 Rifaximin [Xifaxan -] 550 mg PO BID #60 tablet 01/24/17 Spironolactone [Aldactone -] 100 mg PO DAILY #30 tablet 01/24/17
[2017-01-24 10:41] VITALS: PULSE 60
== END 2017-01-24 10:54 | disposition home or self-care (01) | DRG 253 ==
LOC: JER 10:58 → JERBED 14:28 → J4W 18:30 → JICU 22:02 → J6S 01-22 16:41
PROVIDERS: ADMIT Internal Medicine; ATTEND Registered Nurse
PROC: 30233N1 Transfusion of Nonautologous Red Blood Cells into Peripheral Vein, Percutaneous Approach (ICD-10-PCS; 2017-01-20)
PROC: 0DJ08ZZ Inspection of Upper Intestinal Tract, Via Natural or Artificial Opening Endoscopic (ICD-10-PCS; principal; 2017-01-22 07:30)
DX: K92.2 Gastrointestinal hemorrhage, unspecified (principal); N17.9 Acute kidney failure, unspecified; K70.31 Alcoholic cirrhosis of liver with ascites; D69.6 Thrombocytopenia, unspecified; F10.10 Alcohol abuse, uncomplicated; E11.9 Type 2 diabetes mellitus without complications; C22.0 Liver cell carcinoma; D64.9 Anemia, unspecified; E86.1 Hypovolemia; I85.10 Secondary esophageal varices without bleeding; K26.9 Duodenal ulcer, unspecified as acute or chronic, without hemorrhage or perforation; I10 Essential (primary) hypertension; D62 Acute posthemorrhagic anemia; R00.1 Bradycardia, unspecified
CPT/HCPCS: 36415; 36430; 36511; 71010-TC; 76700-TC; 80048; 80053; 80074; 80076; 80307; 81003; 82103; 82105; 82140; 82272; 83605; 83735; 84100; 84484; 85025; 85027; 85610; 85730; 86704; 86706; 86708; 86850; 86900; 86901; 86922; 87086; 87338; 87340; 93005; 93010; 99285-25; P9038; P9058